=== PATIENT | female | born 1975 | race Caucasian/White ===

== ENCOUNTER 2016-02-13 10:26 | Emergency (ER) | payer OTHER ==
[~2016-02-13] VITALS: Ht 170.2 cm; Wt 84.1 kg
[~2016-02-13 10:26] MED LIST: KLO5T PO; LIP40 PO; LIT150 PO; LIT300 PO; NPR500T PO; PARO20TA5 PO; PRAZ2CAP2 PO; QUET100T PO
[2016-02-13 10:30] VITALS: BP 104/104; PULSE 113; RESP 16; O2SAT 93
--- NOTE | 2016-02-13 11:01 | ED.REPORT ---
HPI-URI / Cough / Cold Date of Service Feb 13, 2016 ED Provider: Nohemi Noland History of Present Illness: sick for 3 days. body aches, hot and cold. kids are positive for influenza last week. subha is primary care staying in car. Nursing Notes Stated Complaint: FLU SYMPTOMS Chief Complaint: FLU/Cold Symptoms Nursing Notes Reviewed: Yes Allergies: Coded Allergies: Penicillins (Verified Allergy, Severe, Anaphylaxis, 07/23/15) codeine (Verified Allergy, Severe, Rash, 07/23/15) 05/06/14 -PATIENT RECEIVED DILAUDID X MANY DOSES iodine (Verified Allergy, Unknown, 12/26/15) miconazole (Verified Allergy, Unknown, Hives, 07/23/15) trazodone (Verified Allergy, Unknown, 07/23/15) Scheduled Atorvastatin (Lipitor) 40 Mg Tablet 40 MG PO HS Clonazepam (Clonazepam) 0.5 Mg Tab 0.5 MG PO BID [place] Carbonate ([place] Carbonate) 300 Mg Cap 900 MG PO HS [place] Carbonate ([place] Carbonate) 150 Mg Capsule 150 MG PO BID Paroxetine (Paroxetine) 20 Mg Tablet 20 MG PO HS Prazosin (Prazosin) 2 Mg Capsule 2 MG PO HS Quetiapine Fumarate (Seroquel) 100 Mg Tablet 100 MG PO HS Quetiapine Fumarate (Seroquel) 100 Mg Tablet 100 MG PO HS Scheduled PRN Naproxen (Naproxen) 500 Mg Tab 500 MG PO BID PRN PRN For Pain General Time Seen by MD: 11:00 Chief Complaint Cough, non-productive, Fever Hx Obtained From: Patient Onset Occurred: 4 days ago Symptom Duration: Since onset Past Medical History Past Medical History Notes: [facility] [place] Past Medical History Bipolar disorder. History of MRSA abscesses. Nicotine dependence, active with smoking cigarettes. Morbid obesity. sepsis endocarditis Reports: Migraines Past Surgical History saliva gland removal Adenoidectomy Reports: Cholecystectomy, Tonsillectomy Smoking History Current Every Day Smoker Social History Homeless Alcohol Use: Denies alcohol use Drug Use: IV drugs, Meth Ambulatory Status Independent Review of Systems Basic Review of Systems Cardiovascular: No chest pain, No dyspnea on exertion, No orthopnea, No parox noct dyspnea, No palpitations : No dysuria, No frequency Musculoskeletal: No extremity swelling, No extremity pain, Full range of motion , Joints NL Hematologic: No bleeding, No bruising Endocrine: No cold intolerance, No heat intolerance, No weight gain, No weight loss Psychiatric: Normal thought content Physical Exam Initial Vital Signs Vital Signs (First) Date Time Temp Pulse Resp B/P Pulse Ox O2 Delivery O2 Flow Rate FiO2 02/13/16 10:30 38.3 113 16 104/104 93 Initial VS: Reviewed, Vital signs abnormal Head / Eyes: Atraumatic, Normocephalic, PERRL Neck: Supple, Non-tender, Full range of motion Cardiovascular: Regular rate & rhythm, Heart sounds normal, Intact distal pulses Abdomen / GI: Soft, Non-tender, No guarding, No rebound, No distention Back: No CVA tenderness Lymphatic: No lymphadenopathy Extremities: Vascular intact, Neuro intact, No swelling, No tenderness Skin: Warm, Dry, No cyanosis Neurologic: Alert, Oriented, Nonfocal Psychiatric: Mood/affect normal, Behavior normal, Normal thought content General/Constitutional: Awake, Alert, No acute distress, Well appearing, Well developed, Well hydrated ENT: Atraumatic, Airway patent, Mucous membranes moist Nose: Positive: Rhinorrhea Respiratory / Chest: Atraumatic, Breath sounds NL, Breath sounds = bilat, No respiratory distress, No rales, No rhonchi, No wheezing Head / Eyes: Atraumatic, Normocephalic, PERRL, EOMI Cardiovascular: Heart rate NL, Regular rhythm, Heart sounds NL, No gallop Abdomen: Atraumatic, Soft, Non-tender Interpretation & Diagnostics Lab Results Interpretation Lab Results Interpretation: positive influenza A X-Ray Chest Interpretation Chest Xray Interpretation: TECHNIQUE: 2 views of the chest were acquired. COMPARISON: [facility], CR, XR CHEST 2V AP/PA AND LAT, 01/24/2016, 1:11 PM. [facility], CR, CHEST 2VW, 05/20/2014, 16:13. FINDINGS: Surgical changes and devices: Cholecystectomy clips. Lungs and pleura: There is a minimal appearance of interstitial opacities within the bases. Mediastinum: Mediastinal contours are normal. Heart size is normal. Bones and chest wall: No suspicious bony abnormalities. Soft tissues appear unremarkable. IMPRESSION: Minimal appearance of bibasilar interstitial opacities. This could represent atelectasis or developing airspace disease such as pneumonia. Discharge & Departure Impression: Primary Impression: Fever Encounter type: initial encounter Additional Impressions: Cough Influenza Disposition: Home Patient Instructions: Fever in Adults (ED) Additional Instructions: The chest x-ray shows that there might be a possible pneumonia. It may be viral or bacterial. You are being started on antibiotics. Your influenza A is positive. You have care home information, the cold weather care home is open this evening.. You are seeing Kenyetta Quach tomorrow. She can decide to refill or not the rest of your medication. Today your paroxetine and prazosin are being refilled. Use tessalon perles for the cough. Referrals: Azeem Caro MD (PCP) EDSupervising Provider for APC: Riki Rosenberg DO copies to: Azeem Caro MD, Sue ARNP Feb 13, 2016 11:01
[2016-02-13] MEDS ORDERED: Ketorolac 30 mg/mL 2 mL Inj IM ONE (11:10)
--- NOTE | 2016-02-13 11:54 | DRSVH ---
PROCEDURE: X-RAY CHEST, TWO VIEWS ([id number]) INDICATIONS: cough fever TECHNIQUE: 2 views of the chest were acquired. COMPARISON: [facility], CR, XR CHEST 2V AP/PA AND LAT, 01/24/2016, 1:11 PM. [facility], CR, CHEST 2VW, 05/20/2014, 16:13. FINDINGS: Surgical changes and devices: Cholecystectomy clips. Lungs and pleura: There is a minimal appearance of interstitial opacities within the bases. Mediastinum: Mediastinal contours are normal. Heart size is normal. Bones and chest wall: No suspicious bony abnormalities. Soft tissues appear unremarkable. IMPRESSION: Minimal appearance of bibasilar interstitial opacities. This could represent atelectasis or developing airspace disease such as pneumonia. Dictated by: Tata Conti M.D. on 02/13/2016 at 11:52 Approved by: Tata Conti M.D. on 02/13/2016 at 11:52
[2016-05-01] MEDS ORDERED: TRAM50TA2 PO (12:44)
[2016-05-01] MEDS ORDERED: PRAZ1CAP2 PO (12:44)
[2016-05-01] MEDS ORDERED: QUET300T PO (12:44)
[2016-05-01] MEDS ORDERED: LIT150 PO (12:44)
[2016-05-01] MEDS ORDERED: BUSP10TA2 PO (12:44)
[2016-05-01] MEDS ORDERED: PIRO20CA2 PO (12:44)
[2016-05-01] MEDS ORDERED: PARO25TA17 PO (12:44)
[2016-05-01] MEDS ORDERED: PHEN-777 PO (12:44)
== END 2016-02-13 12:20 | disposition home or self-care (01) ==
LOC: SED 10:26
DX: J11.1 Influenza due to unidentified influenza virus with other respiratory manifestations (principal); R05 Cough; F31.9 Bipolar disorder, unspecified; F17.200 Nicotine dependence, unspecified, uncomplicated; Z59.0 Homelessness; Z88.0 Allergy status to penicillin; Z88.5 Allergy status to narcotic agent; Z88.8 Allergy status to other drugs, medicaments and biological substances
CPT/HCPCS: 71020; 87804; 96372; 99284; J1885

== ENCOUNTER 2016-03-12 19:40 | Emergency (ER) | payer OTHER ==
[~2016-03-12] VITALS: Ht 170.2 cm; Wt 89.1 kg
[2016-03-12 19:55] VITALS: BP 136/88; PULSE 104; RESP 18; O2SAT 99
--- NOTE | 2016-03-12 21:57 | ED.REPORT ---
HPI-General Illness Date of Service Mar 12, 2016 ED Provider: Joshua Caal MD Pt is a 40 y.o. female with a hx of MRSA abscesses who presents to the ED c/o multiple abscesses to her left axilla and left thigh onset 3 weeks ago. She reports associated nausea and fever (subjective). She states that she has a hx of abscesses and typically has them incised and drained. Nursing Notes Stated Complaint: MULTIPLE ABSCESSES Chief Complaint: Skin Rash/Abscess Nursing Notes Reviewed: Yes Allergies: Coded Allergies: Penicillins (Verified Allergy, Severe, Anaphylaxis, 03/12/16) codeine (Verified Allergy, Severe, Rash, 03/12/16) 05/06/14 -PATIENT RECEIVED DILAUDID X MANY DOSES iodine (Verified Allergy, Unknown, 03/12/16) miconazole (Verified Allergy, Unknown, Hives, 03/12/16) trazodone (Verified Allergy, Unknown, 03/12/16) Scheduled Atorvastatin (Lipitor) 40 Mg Tablet 40 MG PO HS Clindamycin (Clindamycin) 300 Mg Capsule 300 MG PO TID Clonazepam (Clonazepam) 0.5 Mg Tab 0.5 MG PO BID [place] Carbonate ([place] Carbonate) 300 Mg Cap 900 MG PO HS [place] Carbonate ([place] Carbonate) 150 Mg Capsule 150 MG PO BID Paroxetine (Paroxetine) 20 Mg Tablet 20 MG PO HS Prazosin (Prazosin) 2 Mg Capsule 2 MG PO HS Quetiapine Fumarate (Seroquel) 100 Mg Tablet 100 MG PO HS Quetiapine Fumarate (Seroquel) 100 Mg Tablet 100 MG PO HS Scheduled PRN Naproxen (Naproxen) 500 Mg Tab 500 MG PO BID PRN PRN For Pain General Time Seen by MD: 21:57 Chief Complaint Other (Abscesses) Hx Obtained From: Patient Arrived By: Walk-in Sudden in Onset?: No Onset Occurred: More than a week ago... (3 weeks) Symptom Duration: Since onset Location: : Shoulder left: Thigh left Quality: Painful Severity: Current: Severe Similar Sx Previous: Yes Past Medical History Past Medical History Notes: [facility] Past Medical History Bipolar disorder. History of MRSA abscesses. Nicotine dependence, active with smoking cigarettes. Morbid obesity. sepsis endocarditis Reports: Depression, Migraines Past Surgical History saliva gland removal Adenoidectomy Reports: Cholecystectomy, Hysterectomy, Tonsillectomy Smoking History Current Every Day Smoker Social History Homeless Alcohol Use: Denies alcohol use Drug Use: In recovery, IV drugs, Meth Ambulatory Status Independent Review of Systems Abscesses Full Review of Systems Constitutional: Reports: Fever (Subjective) GI: Reports: Nausea Complete sys rev & neg: except as marked. Physical Exam Vital Signs Vital Signs Date Time Temp Pulse Resp B/P Pulse Ox O2 Delivery O2 Flow Rate FiO2 03/12/16 23:55 36.8 78 17 129/68 99 Room Air 03/12/16 19:55 36.3 104 18 136/88 99 Room Air Initial VS: Reviewed Head / Eyes: Atraumatic, Normocephalic Abdomen / GI: No distention Extremities: Vascular intact, Neuro intact Neurologic: Alert, Oriented, Nonfocal Psychiatric: Mood/affect normal, Behavior normal, Normal thought content General/Constitutional: Awake, Alert, Well appearing, Well developed, Well hydrated, Well nourished, Not toxic appearing Respiratory / Chest: Atraumatic, Breath sounds NL, No respiratory distress Cardiovascular: Regular rhythm, Heart sounds NL, Peripheral circulation NL Heart Rate / Rhythm: Positive: Tachycardia Skin: Warm, Dry Abscess Notes: Multiple, 6, abscesses of varying sizes to left axilla. 2 more prominent abscesses, one draining presently. 1 small abscess to left gluteus minimus, posterior to vagina. Abscess #1 Location/Condition: Positive: Axilla L... (Multiple abscesses, tender) Abscess #2 Location/Condition: Positive: Buttock L... (Tender) Procedures Incision & Drainage Abscess I & D Abscess: Adaptive Physical Education Specialist present Time: 23:13 Procedure Performed by: ED physician Consent / Setup / Site Prep: Informed consent provided, Consent from patient , Time-out performed, Hand hygiene observed, Stand sterile technique, Standard surgical scrub, Sterile drapes applied Location of Abscess: 2 left axillary abscesses 1 left gluteus minumus anterior and lateral to rectum T incision made in each abscess Local Anesthesia: Lidocaine w epi 1% Incised Abscess with Scalpel: #11 Irrigation: Yes, Copious Post-Procedure / Complications: Dressing applied, No complications, Condition improved, Tolerated procedure well, Patient stable Re-Eval/Medical Decision Med Decision/Clinical Course Multiple skin abscesses in a lady with hidradenitis suppurativa. Three different lesions were incised and drained, first on the left buttock, and then two in the left axilla. Tolerated well. Dressed in bacitracin dressings and discharged home for hot soaks. Clindamycin for ten days. Source of Hx: Old records Time of Eval: 23:13 Re-Evaluation/Progress Note: Procedure performed with special education preschool teacher present. Discussed plan for discharge, pt understands and agrees with plan. Counseled Regarding: Diagnosis, Lab results, Need for follow-up, When/why to return to ED Discharge & Departure Shift Change Sign-Out Response to Therapy: Improved Primary Impression: Abscess Additional Impression: Hidradenitis suppurativa Disposition: Home Discharge Condition All VS Reviewed: Yes Condition: Stable Additional Instructions: Follow-up at surgical office for consideration of definitive surgery to reduce the abscesses in your armpits. Hot shower or soak twice daily for armpits and buttock. Cleanse after a bowel movement with a diaper wipe such as Pampers "sensitive" wipes. Clindamycin three times daily Follow-up with your doctor in the office. Referrals: Azeem Caro MD (PCP) [employer] Att[facility] Portions of this note were transcribed by Isabel Limon. I, Dr. Caal personally performed the history, physical exam and medical decision-making; I reviewed and confirmed the accuracy of the information in the transcribed note. Signed by: David Russo, 03/12/16 and [id number]. copies to: Azeem Caro MD, Christopher W MD Mar 12, 2016 21:57 ISABEL LIMON Mar 12, 2016 22:10
[2016-03-12] MEDS ORDERED: CLIN-78 PO (23:39)
[2016-03-12 23:55] VITALS: BP 129/68; PULSE 78; RESP 17; O2SAT 99
[2016-05-01] MEDS ORDERED: LIT150 PO (12:44)
[2016-05-01] MEDS ORDERED: PHEN-777 PO (12:44)
[2016-05-01] MEDS ORDERED: BUSP10TA2 PO (12:44)
[2016-05-01] MEDS ORDERED: PIRO20CA2 PO (12:44)
[2016-05-01] MEDS ORDERED: QUET300T PO (12:44)
[2016-05-01] MEDS ORDERED: PRAZ1CAP2 PO (12:44)
[2016-05-01] MEDS ORDERED: TRAM50TA2 PO (12:44)
[2016-05-01] MEDS ORDERED: PARO25TA17 PO (12:44)
== END 2016-03-12 23:56 | disposition home or self-care (01) ==
LOC: SED 19:40
DX: L02.412 Cutaneous abscess of left axilla (principal); L02.31 Cutaneous abscess of buttock; L02.416 Cutaneous abscess of left lower limb; L73.2 Hidradenitis suppurativa; F31.9 Bipolar disorder, unspecified; F17.200 Nicotine dependence, unspecified, uncomplicated; Z59.0 Homelessness; Z88.0 Allergy status to penicillin; Z88.5 Allergy status to narcotic agent; Z88.8 Allergy status to other drugs, medicaments and biological substances

== ENCOUNTER 2016-04-07 15:07 | Emergency (ER) | payer OTHER ==
[~2016-04-07] VITALS: Ht 170.2 cm; Wt 99.5 kg
[~2016-04-07 15:07] MED LIST changes: +CLIN-78 PO
[2016-04-07 15:28] VITALS: BP 140/96; PULSE 92; RESP 19
--- NOTE | 2016-04-07 17:31 | ED.REPORT ---
HPI-Rash / Abscess Date of Service Apr 07, 2016 ED Provider: Nohemi Noland History of Present Illness: tripped on soiled linen hamper and hurt left great toe. Also requesting pain control for ongoing rash. Nursing Notes Stated Complaint: LEFT ABSCESS Chief Complaint: Skin Rash/Abscess Nursing Notes Reviewed: Yes Allergies: Coded Allergies: Penicillins (Verified Allergy, Severe, Anaphylaxis, 04/07/16) codeine (Verified Allergy, Severe, Rash, 04/07/16) 05/06/14 -PATIENT RECEIVED DILAUDID X MANY DOSES iodine (Verified Allergy, Unknown, 04/07/16) miconazole (Verified Allergy, Unknown, Hives, 04/07/16) trazodone (Verified Allergy, Unknown, 04/07/16) Scheduled Atorvastatin (Lipitor) 40 Mg Tablet 40 MG PO HS Clindamycin (Clindamycin) 300 Mg Capsule 300 MG PO TID Clonazepam (Clonazepam) 0.5 Mg Tab 0.5 MG PO BID [place] Carbonate ([place] Carbonate) 300 Mg Cap 900 MG PO HS [place] Carbonate ([place] Carbonate) 150 Mg Capsule 150 MG PO BID Paroxetine (Paroxetine) 20 Mg Tablet 20 MG PO HS Prazosin (Prazosin) 2 Mg Capsule 2 MG PO HS Quetiapine Fumarate (Seroquel) 100 Mg Tablet 100 MG PO HS Quetiapine Fumarate (Seroquel) 100 Mg Tablet 100 MG PO HS Scheduled PRN Naproxen (Naproxen) 500 Mg Tab 500 MG PO BID PRN PRN For Pain General Time Seen by MD: 17:26 Chief Complaint Abscess, Other (toe pain) Hx Obtained From: Patient Onset Occurred: More than a week ago... (4 weeks) Past Medical History Past Medical History Notes: [facility] Recent start of suboxone 04/07/2016 When asked when she was going to inform of suboxone use "I forgot" Past Medical History Bipolar disorder. History of MRSA abscesses. Nicotine dependence, active with smoking cigarettes. Morbid obesity. sepsis endocarditis Reports: Depression, Migraines Past Surgical History saliva gland removal Adenoidectomy Reports: Cholecystectomy, Hysterectomy, Tonsillectomy Smoking History Current Every Day Smoker Social History Homeless Alcohol Use: Denies alcohol use Drug Use: In recovery, IV drugs, Meth Ambulatory Status Independent Review of Systems Basic Review of Systems : No dysuria Endocrine: No cold intolerance, No heat intolerance, No weight gain, No weight loss Physical Exam Initial Vital Signs Vital Signs (First) Date Time Temp Pulse Resp B/P Pulse Ox O2 Delivery O2 Flow Rate FiO2 04/07/16 15:28 36.4 92 19 140/96 Room Air 04/07/16 18:35 99 Initial VS: Reviewed, Vital signs normal Head / Eyes: Atraumatic, Normocephalic, PERRL ENT: Mucous membranes moist, Conjunctiva normal, No scleral icterus Neck: Supple, Non-tender, Full range of motion Respiratory: Breath sounds normal, Clear to auscultation, No respiratory distress Cardiovascular: Regular rate & rhythm, Heart sounds normal, Intact distal pulses Abdomen / GI: Soft, Non-tender, No guarding, No rebound, No distention Back: No CVA tenderness Lymphatic: No lymphadenopathy Extremities: Vascular intact, Neuro intact, No swelling, No tenderness Neurologic: Alert, Oriented, Nonfocal Psychiatric: Mood/affect normal, Behavior normal, Normal thought content General/Constitutional: Awake, Alert, No acute distress, Well appearing, Well developed, Well hydrated, Well nourished, Cooperative, Not toxic appearing Rash / Lesion Notes: hard lump in left axaillae Respiratory / Chest: Atraumatic, Breath sounds NL, Breath sounds = bilat, No respiratory distress Cardiovascular: Heart rate NL, Regular rhythm, Heart sounds NL, No gallop Interpretation & Diagnostics Lab Results Interpretation Test 04/07/16 17:16 Hold Urine Received (Received) X-Ray Interpretation Xray Interpretation: DICATIONS: caught toe on laundry hamper TECHNIQUE: 3 views of the foot were acquired. COMPARISON: None. FINDINGS: Bones: No fractures or dislocations. No suspicious bony lesions. Soft tissues: No tibiotalar joint effusion. Achilles tendon appears normal. IMPRESSION: No acute bony abnormality. Procedures Incision & Drainage Abscess Time: 18:00 Procedure Performed by: Allied health pract Consent / Setup / Site Prep: Informed consent provided, Consent from patient , Hand hygiene observed, Stand sterile technique Skin Preparation Agent: Betadine Local Anesthesia: Lidocaine 1%, 3cc Incised Abscess with Scalpel: #11 Pus Drained: No purulence Irrigation: 100 cc Post-Procedure / Complications: Dressing applied, No complications, Tolerated procedure well, Patient stable Re-Eval/Medical Decision Med Decision/Clinical Course 40 year old female presents with request for pain control for hirdanetisis suppertative. States lost discharge instruction from 1 month ago. Exam indicates 3 areas in left axaillae area. One opened with no discharge out. Exam is consistent with long standing dx of hirandeitis . No evidence of cellulitis or deep tissue abscess. Discharge & Departure Impression: Primary Impression: Hidradenitis suppurativa Additional Impression: Toe sprain Encounter type: initial encounter Qualified Code: S93.509A - Unspecified sprain of unspecified toe(s), initial encounter Disposition: Home Additional Instructions: The x-ray is negative for bony damage. The site of the swelling in your left axilla area was opened with no discharge out. Please call general surgery for definitive treatment of this condition. Dr. Ingram's number is provided for you. You are being provided a prescription for clindamycin. Please get it filled. I am glad you are on suboxone! Please continue to work with [facility]. Referrals: Tara Khan (PCP) Pollo Ingram MD EDSupervising Provider for APC: Joshua Caal MD copies to: Pollo Ingram MD; Tara Khan Sue ARNP Apr 07, 2016 17:31
[2016-04-07] MEDS ORDERED: Ketorolac 30 mg/mL 2 mL Inj IM ONE (17:50)
[2016-04-07 18:35] VITALS: BP 131/69; PULSE 72; RESP 19; O2SAT 99
--- NOTE | 2016-04-07 18:44 | DRSVH ---
PROCEDURE: X-RAY LEFT FOOT COMPLETE, MINIMUM THREE VIEWS ([id number]) INDICATIONS: caught toe on laundry hamper TECHNIQUE: 3 views of the foot were acquired. COMPARISON: None. FINDINGS: Bones: No fractures or dislocations. No suspicious bony lesions. Soft tissues: No tibiotalar joint effusion. Achilles tendon appears normal. IMPRESSION: No acute bony abnormality. Dictated by: Herrera López M.D. on 04/07/2016 at 18:42 Approved by: Herrera López M.D. on 04/07/2016 at 18:42
--- NOTE | 2016-04-07 18:54 | NUR ---
ED DIGITAL PHOTO PRINTER Note D/A: Pt presented to the ED for treatment of an abscess. Pt was medically cleared and discharged. DIGITAL PHOTO PRINTER was requested to arrange transportation home for Pt. P: DIGITAL PHOTO PRINTER called [place] and was informed that Pt was eligible for Medicaid transportation. DIGITAL PHOTO PRINTER scheduled a time for Pt to be picked up and taken home. OLEKSANDR Baxter, AAC
[2016-05-01] MEDS ORDERED: QUET300T PO (12:44)
[2016-05-01] MEDS ORDERED: LIT150 PO (12:44)
[2016-05-01] MEDS ORDERED: PRAZ1CAP2 PO (12:44)
[2016-05-01] MEDS ORDERED: TRAM50TA2 PO (12:44)
[2016-05-01] MEDS ORDERED: BUSP10TA2 PO (12:44)
[2016-05-01] MEDS ORDERED: PIRO20CA2 PO (12:44)
[2016-05-01] MEDS ORDERED: PARO25TA17 PO (12:44)
[2016-05-01] MEDS ORDERED: PHEN-777 PO (12:44)
== END 2016-04-07 18:35 | disposition home or self-care (01) ==
LOC: SED 15:07
DX: L73.2 Hidradenitis suppurativa (principal); S93.502A Unspecified sprain of left great toe, initial encounter; W18.49XA Other slipping, tripping and stumbling without falling, initial encounter; Y92.9 Unspecified place or not applicable; Y93.89 Activity, other specified; Y99.8 Other external cause status; F17.200 Nicotine dependence, unspecified, uncomplicated; E66.01 Morbid (severe) obesity due to excess calories; Z86.14 Personal history of Methicillin resistant Staphylococcus aureus infection; Z68.34 Body mass index [BMI] 34.0-34.9, adult; Z59.0 Homelessness; Z88.0 Allergy status to penicillin; Z88.5 Allergy status to narcotic agent; Z91.041 Radiographic dye allergy status; Z88.3 Allergy status to other anti-infective agents; Z88.8 Allergy status to other drugs, medicaments and biological substances
CPT/HCPCS: 10060; 73630; 96372; 99284; J1885

== ENCOUNTER 2016-05-02 06:49 | Day surgery (SDC) | payer OTHER ==
[2016-05-02] VITALS (12 sets, daily range): BP systolic 93–114; BP diastolic 53–74; PULSE 60–81; RESP 12–17; O2SAT 94–100
[~2016-05-02] VITALS: Ht 170.2 cm; Wt 82.5 kg
[~2016-05-02 06:49] MED LIST changes: +Albuterol 2.5 mg/3 mL Inhalation Solution NEB PRN; +BUSP10TA2 PO; -CLIN-78 PO; +CeFAZolin Inj 2 GM in IV Premix 1 EACH IV ONE; -KLO5T PO; -LIP40 PO; -LIT300 PO; +Lactated Ringer's 1,000 ML IV SCH; -NPR500T PO; -PARO20TA5 PO; +PARO25TA17 PO; +PHEN-777 PO; +PIRO20CA2 PO; +PRAZ1CAP2 PO; -PRAZ2CAP2 PO; -QUET100T PO; +QUET300T PO; +TRAM50TA2 PO
[2016-05-02] MEDS ORDERED: EPHEDrine/NS 5 mg/mL 5 mL Syringe ONE (06:50)
[2016-05-02] MEDS ORDERED: Glycopyrrolate 0.2 MG/ML 1mL Inj ONE (06:50)
[2016-05-02] MEDS ORDERED: Lidocaine PF 1% 30 mL Inj ONE (06:50)
[2016-05-02] MEDS ORDERED: Propofol 10,000 mCg/mL 20 mL Inj ONE (06:50)
[2016-05-02] MEDS ORDERED: Dexamethasone 4 mg/mL Inj ONE (06:50)
[2016-05-02] MEDS ORDERED: Ondansetron 2 mg/mL 2 mL Inj ONE (06:50)
[2016-05-02] MEDS ORDERED: fentaNYL-PF 50 mCg/mL 2 mL Inj ONE (06:50)
[2016-05-02] MEDS ORDERED: Lactated Ringer's 1,000 ML IV ONE (09:15)
[2016-05-02] MEDS ORDERED: HYDROmorphone 0.5 mg/0.5 mL iSecure Syringe IVPUSH PRN (12:25)
--- NOTE | 2016-05-02 12:37 | PCM.HPANE ---
Patient Data Date of Service: May 02, 2016 Surgeon Admitting Provider: Attending Provider:Pollo Ingram MD Primary Care Physician:Daniel Bonilla MD Other Provider:Jessica Escalante Anesthesia Reason for Visit Hidradenitis Ht/WT & BMI Height (Feet): 5 Height (Inches): 7.00 Weight (Kilograms): 82.5 Body Mass Index 28.00 Allergies Coded Allergies: Penicillins (Verified Allergy, Severe, Anaphylaxis, 04/07/16) codeine (Verified Allergy, Severe, Rash, 04/07/16) 05/06/14 -PATIENT RECEIVED DILAUDID X MANY DOSES iodine (Verified Allergy, Unknown, 04/07/16) miconazole (Verified Allergy, Unknown, Hives, 04/07/16) trazodone (Verified Allergy, Unknown, 04/07/16) Past Anesthesia History Anesthesia History: Denies:: Anesthesia Reactions Diabetes History Hx Diabetes?: No MRSA MRSA: Yes (several times) Medications Home Meds Incl Beta Eulalio: No Reported Medications Tramadol 50 Mg Efcfis39 Mg PO Q4H PRN For Pain Ref 0 05/01/16 Quetiapine Fumarate (Seroquel)300 Mg Lizggx047 Mg PO HS Ref 0 05/01/16 Prazosin 1 Mg Capsule1 Mg PO HS 05/01/16 Piroxicam 20 Mg Ptrizon07 Mg PO DAILY 05/01/16 Phenazopyridine 200 Mg Pvewfv930 Mg PO TID Ref 0 05/01/16 Paroxetine HCl (Paroxetine ER)25 Mg Tab.er.24h25 Mg PO DAILY 05/01/16 [place] Carbonate 150 Mg Wufxkkz342 Mg PO TID 05/01/16 Buspirone 10 Mg Frkxes76 Mg PO DAILY Ref 0 05/01/16 Discontinued Reported Medications Clonazepam 0.5 Mg Tab0.5 Mg PO BID For Anxiety 05/06/14 Quetiapine Fumarate (Seroquel)100 Mg Czggpw357 Mg PO HS 05/06/14 Atorvastatin (Lipitor)40 Mg Asgkka45 Mg PO HS 07/25/13 Paroxetine 20 Mg Wszuhl68 Mg PO HS 07/25/13 Prazosin 2 Mg Capsule2 Mg PO HS 07/25/13 [place] Carbonate 300 Mg Gbn270 Mg PO HS 07/25/13 Discontinued Scripts Clindamycin 300 Mg Qsaaetl546 Mg PO TID #30 CAPSULE Prov:Joshua Caal MD 03/12/16 [place] Carbonate 150 Mg Pekwuvv573 Mg PO BID #14 CAPSULE Prov:Andrez Al MD 10/07/15 Quetiapine Fumarate (Seroquel)100 Mg Hwymjq300 Mg PO HS #7 TABLET Ref 0 Prov:Andrez Al MD 10/07/15 Naproxen 500 Mg Ulf580 Mg PO BID PRN For Pain #20 TABLET Prov:WhitleyColinTataRiki ritter 07/08/15 History History of ENT Problems?: Yes HEENT History: Denies:: Cataracts Dysphagia Sinus Problem Hx of Heart Problems?: Yes Cardiovascular History: Positive for:: Edema Denies:: Cardiac Surgery Chest Pain Congestive Heart Failure Heart Murmur Hypertension Irregular Heartbeat Pacemaker Thrombophlebitis Hx of Respiratory Problem?: Yes Respiratory History: Positive for:: Dyspnea (with activity) Pneumonia Denies:: Asthma COPD Chest Surgery Emphysema Hemoptysis Tuberculosis Hx Neurologic Problems?: Yes Neurological History: Positive for:: Headaches (migraines) Denies:: Alzheimer's Disease CVA Dementia Dizziness Parkinson's Disease Seizures Hx of GI Problems?: Yes Gastrointestinal History: Positive for:: Diverticulitis Gastroesphageal Reflux Gastrointestinal Bleeding Heartburn Hepatitis (HEP C hx) Rectal Bleeding Denies:: Hiatal Hernia Hx of Problems?: Yes Genitourinary History: Positive for:: Kidney Stones Urinary Tract Infection Denies:: HX of Hemodialysis HX of Peritoneal Dialysis: No Female Hx: Positive for:: Pelvic Inflammatory Denies:: Currently (urine pg neg) Endometriosis Problems with Breasts? Skin History: Positive for:: History Skin Disorders? (left axillary and left buttock hidradenitis current admission problem) Denies:: Pressure Ulcers Hx Musculoskeletal Problems?: Yes Musculoskeletal History: Positive for:: Back Injury Denies:: Joint Replacement Musculoskeletal Trauma Hx of Psycho/Social Problems?: Yes Psycho Social History: Positive for:: Anxiety Bipolar Disorder Hx Depression Suicide Attempt (x1 in 1995) Hx Surgeries?: Yes (salivary duct removed, tonsils, hysterectomy, adnoids, removed) Hx Any Other Health Problems?: Yes Other History: Positive for:: Hospitalization Denies:: Cancer Endocrine Disease Thyroid Disease History Blood Transfusions: Positive for:: Blood Transfusions Denies:: Blood Transfuse Reaction Hx Diabetes: No Hx Alcohol Use: NoHx Substance Use: No (past hx of meth, clean since 2010) Smoking Status: Current Every Day Smoker Have You Smoked inLast 12 mo: Yes Stop/Bang S-Snoring: Do You Snore Loudly: No T-Tired: feel tired, fatigued: No O-Obsered: Observed not breath: No P-Blood Pressure: treated: No B- Body Mass Index > 35 kg/m2: No A- Age over 50: No N- Neck Large Circumference: No G- Gender Male: No URBANO Total Score: 0 URBANO Risk Assessment: Low Risk, <3 Yes Risk Assessment Category Category 1A: Patient has history of documented sleep apnea, and HAS NOT received any narcotic, sedative or anesthesia administration during this stay. Category 1B: Patient has history of documented sleep apnea, and HAS received any narcotic , sedative or anesthesia administration during this stay Category 2: Patient has SUSPECTED Obstructive Sleep Apnea, and HAS received any narcotic , sedative or anesthesia administration during this stay. Category 3: Patient has SUSPECTED Obstructive Sleep Apnea and HAS NOT received narcotic, sedative or anesthesia administration during this stay. Category 4: Outpatient in Procedural Areas with known sleep apnea or who screen positive for High Risk via the STOP/BANG questionnaire. Exam Exam Vital Signs Vital Signs Date Time Temp Pulse Resp B/P Pulse Ox O2 Delivery O2 Flow Rate FiO2 05/02/16 09:42 79 12 100/60 98 Room Air 05/02/16 09:20 35 74 14 107/63 100 Room Air General Appearance: Alert, Oriented X3, Cooperative, No Acute Distress HEENT/AIRWAY: MP 2, Neck Movement (from), Mouth Opening (3 fb), Other (tmd 3 fb ) Lungs: Clear to Auscultation, Normal Air Movement Heart: Exam Unremarkable, Regular Rate/Rhythm, No Murmurs/Rubs/Gallops Meds/Labs/Diagnostics Admission Meds Current Medications Lactated Ringer's (Lr) 1,000 ml @ ud STK-MED ONCE IV Last administered on 05/02t 09:15; Start 05/02/16 at 09:15; Stop 05/02/16 at 09:19; Status DC Plan Impression Patient chart reviewed, patient interviewed and anesthestic plan with risks, benefits, and alternatives discussed, and informed consent obtained. NPO Status: 05/01@1400, water @ 0630 ASA Physical Status: ASA2 Mod Systemic Disease Anesthetic Plan: GA Bene/Risks/Altern/Consents: Yes HP Complete Prior to Induction: Yes Shamir Cronin MD May 02, 2016 12:37
[2016-05-02] MEDS ORDERED: HYDROmorphone 1 mg/mL Inj ONE (12:44)
[2016-05-02] MEDS ORDERED: Lactated Ringer's 1,000 ML IV SCH (13:51)
[2016-05-02] MEDS ORDERED: Lactated Ringer's 500 ML IV PRN (13:51)
[2016-05-02] MEDS ORDERED: Ondansetron 2 mg/mL 2 mL Inj IVPUSH PRN (13:55)
[2016-05-02] MEDS ORDERED: EPHEDrine Sulfate 50 mg/mL Inj IVPUSH PRN (13:55)
[2016-05-02] MEDS ORDERED: Phenylephrine 10,000 mCg/mL Inj IVPUSH PRN (13:55)
[2016-05-02] MEDS ORDERED: hydrALAZINE 20 mg/mL Inj IVPUSH PRN (13:55)
[2016-05-02] MEDS ORDERED: EPHEDrine Sulfate 50 mg/mL Inj IM PRN (13:55)
[2016-05-02] MEDS ORDERED: Albuterol 2.5 mg/3 mL Inhalation Solution NEB PRN (13:55)
[2016-05-02] MEDS ORDERED: fentaNYL-PF 50 mCg/mL 2 mL Inj IVPUSH PRN (13:55)
[2016-05-02] MEDS ORDERED: Atropine 0.4 mg/mL Inj IVPUSH PRN (13:55)
[2016-05-02] MEDS ORDERED: HYDROmorphone 1 mg/mL Inj IVPUSH PRN (13:55)
[2016-05-02] MEDS ORDERED: Bupivacaine 0.5%/EPI 50 mL Inj INFILTRATE ONE (14:27)
[2016-05-02] MEDS ORDERED: oxyCODONE-Acetamin 5-325 mg Tablet PO PRN (15:50)
--- NOTE | 2016-05-02 19:44 | PCM.ANEP1 ---
Post Anesthesia Phase 1 PACU Phase 1 Assessment Date of Service: May 02, 2016 Vital Signs Vital Signs Date Time Temp Pulse Resp B/P Pulse Ox O2 Delivery O2 Flow Rate FiO2 05/02/16 17:21 60 16 93/65 96 Room Air 05/02/16 17:17 36.3 81 16 103/68 98 Room Air 05/02/16 16:55 67 15 102/67 94 Room Air 05/02/16 16:40 68 13 107/65 94 Room Air 05/02/16 16:30 70 16 105/68 96 Room Air 05/02/16 16:15 73 17 105/53 95 Room Air 05/02/16 16:00 71 14 112/74 100 Simple Mask 10 05/02/16 15:55 72 13 114/73 100 Simple Mask 10 05/02/16 15:50 69 17 113/69 100 Simple Mask 10 05/02/16 15:45 36.5 67 14 111/68 100 Simple Mask 10 Anesthetic Administered: GA Level of Alertness: Sleepy, easy to arouse LOMBARDI's with Equal Strength: Yes Pain: No Nausea or Vomiting: No Oxygen Delivery: Room Air Lungs: Clear to Auscultation, Normal Air Movement Dermatome Level: Full Sensation Shamir Cronin MD May 02, 2016 19:43
--- NOTE | 2016-05-02 19:44 | PCM.ANEP2 ---
Post Anesthesia Evaluation ASA/CMS Post Anesthesia Date of Service: May 02, 2016 VS in Patient's Normal Range?: Yes Resp Stable; Airway Patent?: Yes CV Function & Hydration Stable: Yes Mental Status Recovered?: Yes Pain control Satisfactory?: Yes N/V Control Satisfactory?: Yes Shamir Cronin MD May 02, 2016 19:44
--- NOTE | 2016-05-03 02:24 | OP ---
[address] [address] OPERATIVE REPORT PATIENT: POPPY BONILLA : 1975 MR#: [id number] ADMIT: 05/02/2016 JOB ID: [id number] DATE OF SURGERY: 05/02/2016 SURGEON: Pollo Ingram MD. COMPUTER ANALYST SUPERVISOR: Dr. Scott, resident 1. Ciara Scott DO, resident. ANESTHESIA: General. PREOPERATIVE DIAGNOSIS(ES): 1. Left axillary hidradenitis x2. 2. Left medial buttocks hidradenitis x1. 3. Pilonidal cyst. POSTOPERATIVE DIAGNOSIS(ES): 1. Left axillary hidradenitis x2. 2. Left medial buttocks hidradenitis x1. 3. Pilonidal cyst. PRINCIPAL PROCEDURE: 1. Excision of left axillary hidradenitis x2. 2. Excision of left medial buttocks hidradenitis x1. 3. Excision of pilonidal cyst. INDICATION FOR PROCEDURE: The patient is a 40-year-old female with recurrent symptomatic hidradenitis and pilonidal cyst. PRINCIPAL FINDING: Successful excision. All lesions were excised and sent to Pathology. Wounds were all closed using nylon sutures. PROCEDURE COURSE: The patient was brought to the operating table and was provided with general anesthesia. The patient was given IV antibiotics and SCDs. A time-out was performed. We started with the left axillary and left medial buttocks lesions. All areas were prepped and draped in the usual sterile fashion. Next, the smaller of the left axillary hidradenitis was injected with local anesthesia, and using elliptical incisions the hydradenitis and the overlying skin was then excised. Hemostasis was controlled. The skin defect was then reapproximated using a running nylon suture. The larger left axillary hidradenitis lesion was also marked by pen, and after injection of local anesthetic elliptical incisions were made to include the overlying skin, and the hidradenitis and subcu were then excised and sent to Pathology. Hemostasis was controlled using cautery. Next, the subcutaneous tissue was then reapproximated using interrupted Vicryl sutures and the skin was then closed using a running nylon suture. The smaller axillary incision was 2 cm and the larger axillary incision was 4 cm. Next, we turned our attention to the left medial buttocks lesion. Again, local anesthetic was injected and elliptical incisions were made to include the skin. The specimen was excised and sent to Pathology. The skin was closed using a running nylon suture. The incision here measured 2 cm in length. Next, patient was then flipped onto a prone position exposing her tailbone region. The area was prepped and draped in the usual sterile fashion. Next, a midline incision was made directly over her palpable symptom and the subcutaneous tissue was entered using electrocautery. Dissection into subcu space did appear to show a left-sided subcutaneous cyst and the entire subcu tissue was excised and sent to Pathology. Palpation within the wound did not show any other lesions. Next, the subcu and dermis layer was then reapproximated using interrupted Vicryl suture and the skin was closed using interrupted nylon sutures. This pilonidal incision measured 3 cm in length. A sterile dressing was then placed over each wound. By the end of procedure, needle counts and sponge counts were correct. The patient was then extubated and taken to the recovery room in stable, satisfactory condition.
--- NOTE | 2016-05-06 15:14 | PATH ---
SURGICAL PATHOLOGY Attending Physician:Pollo Ingram M.D. CASE STATUS: Signed Out PATIENT NAME: POPPY BONILLA PID: [id number] : 1975 DATE COLLECTED:05/02/2016 00:00 SPECIMEN: 1: Skin, biopsy 2: Skin, biopsy 3: Skin, biopsy 4: Pilonidal Cyst CLINICAL HISTORY: HIDRADENITIS 1). LEFT AXILLA HIDRA 2). LEFT AXILLA HIDRA (BIGGER) 3). LEFT MEDIAL BUTTOCK HIDRA 4). PILONIDAL TISSUE FINAL DIAGNOSIS: 1.LEFT AXILLA HIDRA: SKIN EXCISIONAL BIOPSY WITH CHRONIC AND ACTIVE INFLAMMATION, CONSISTENT WITH HIDRADENITIS. NO EVIDENCE OF MALIGNANCY: 2.LEFT AXILLA HIDRA (BIGGER): SKIN AND SUBCUTANEOUS TISSUE WITH FIBROSIS AND PATCHY CHRONIC ACTIVE INFLAMMATION, CONSISTENT WITH HIDRADENITIS. NO EVIDENCE OF MALIGNANCY. 3.LEFT MEDIAL BUTTOCK HIDRA: SKIN AND SUBCUTANEOUS TISSUE WITH FIBROSIS AND PATCHY CHRONIC ACTIVE INFLAMMATION. NO EVIDENCE OF MALIGNANCY. 4.PILONIDAL TISSUE: SUBCUTANEOUS TISSUE WITH FIBROSIS. NO GRANULATION TISSUE OR ACTIVE INFLAMMATION IDENTIFIED. NO EVIDENCE OF MALIGNANCY. ICD10 CODE L73.2 GROSS DESCRIPTION: The specimen is received in four formalin filled containers labeled with the patient's name. 1). The specimen is sublabeled "left axilla hidra" and consists of a evans-rapp ovoid piece of skin and tissue which measures 1.0 by a 0.6 x 0.6 CM. The specimen is inked blue, sectioned into 4 pieces and entirely submitted in cassette 1A. 2). The specimen is sublabeled "left axilla hidra (bigger)" and consists of a evans-rapp ellipse of skin and tissue which measures 3.6 x 1.2 x 1.2 CM. Centrally located on the epidermal surface is a 0.3-0.1 CM depressed and rough area the surgical margin is inked blue. 4 congressional representative sections are submitted in cassettes 2A, 2B. 3). The specimen is sublabeled "left medial buttock hidra" and consists of a 1.4 x 0.9 x 0.8 CM brink-rpap rough portion of skin and tissue. Centrally located on the epidermal surface is a 0.3 CM in diameter light brink-rapp rough and slightly hypopigmented area. The surgical margin is inked blue. Sectioned into 4 pieces and entirely submitted in cassette 3A. 4). The specimen is sublabeled "pilonidal tissue" and consists of multiple portions of yellow-rapp tube evans-rapp tissue which aggregate to 1.2 x 1.2 x 0.7 CM. The smallest portions are entirely submitted in cassette 4A. The largest piece is inked blue, trisected and entirely submitted in cassette 4B. 05/03/2016 MICRO DESCRIPTION: See diagnosis. ICD-9 CODES: CPT CODES: 1: 05688 2: 08126 3: 55610 4: 41961 Electronically Signed Out Davina Carvalho MD [facility] [address], [place] [address] Technical component performed at [facility], [facility] [address], [place], [address]
== END 2016-05-02 23:59 | disposition home or self-care (01) ==
LOC: SAS 06:49
PROVIDERS: ATTEND Surgery
DX: L73.2 Hidradenitis suppurativa (principal); L05.91 Pilonidal cyst without abscess; E78.00 Pure hypercholesterolemia, unspecified; J45.909 Unspecified asthma, uncomplicated; B19.20 Unspecified viral hepatitis C without hepatic coma; G43.909 Migraine, unspecified, not intractable, without status migrainosus; I25.2 Old myocardial infarction; K21.9 Gastro-esophageal reflux disease without esophagitis; M79.7 Fibromyalgia; R01.1 Cardiac murmur, unspecified; F31.9 Bipolar disorder, unspecified; Z86.14 Personal history of Methicillin resistant Staphylococcus aureus infection
CPT/HCPCS: 11450; 11470; 11771; J0690; J1100; J1170; J2405; J3010; J7120

== ENCOUNTER 2016-05-03 11:00 | Emergency (ER) | payer OTHER ==
[~2016-05-03] VITALS: Ht 171.4 cm; Wt 82.5 kg
[~2016-05-03 11:00] MED LIST changes: -Albuterol 2.5 mg/3 mL Inhalation Solution NEB PRN; -CeFAZolin Inj 2 GM in IV Premix 1 EACH IV ONE; -Lactated Ringer's 1,000 ML IV SCH
[2016-05-03 11:19] VITALS: BP 118/76; PULSE 90; RESP 16; O2SAT 97
--- NOTE | 2016-05-03 11:30 | ED.REPORT ---
HPI-General Illness Date of Service May 03, 2016 ED Provider: Andrez Al MD Pt is a 40 y.o. female who presents to the ED seeking a medication refill of Suboxone. Patient was scheduled to [facility] but was in the operating room yesterday getting cysts drained. She was discharged with Dilaudid and Percocet which she brought to the clinic [facility]) and requested Suboxone instead. She requests refill of Suboxone prescription to cover her through Friday which is her next appointment Nursing Notes Stated Complaint: MEDICATIONS Chief Complaint: General Complaint Nursing Notes Reviewed: Yes Allergies: Coded Allergies: Penicillins (Verified Allergy, Severe, Anaphylaxis, 04/07/16) codeine (Verified Allergy, Severe, Rash, 04/07/16) 05/06/14 -PATIENT RECEIVED DILAUDID X MANY DOSES iodine (Verified Allergy, Unknown, 04/07/16) miconazole (Verified Allergy, Unknown, Hives, 04/07/16) trazodone (Verified Allergy, Unknown, 04/07/16) Scheduled Buspirone (Buspirone) 10 Mg Tablet 10 MG PO DAILY [place] Carbonate ([place] Carbonate) 150 Mg Capsule 300 MG PO TID Paroxetine HCl (Paroxetine ER) 25 Mg Tab.er.24h 25 MG PO DAILY Phenazopyridine (Phenazopyridine) 200 Mg Tablet 200 MG PO TID Piroxicam (Piroxicam) 20 Mg Capsule 20 MG PO DAILY Prazosin (Prazosin) 1 Mg Capsule 1 MG PO HS Quetiapine Fumarate (Seroquel) 300 Mg Tablet 300 MG PO HS Scheduled PRN Tramadol (Tramadol) 50 Mg Tablet 50 MG PO Q4H PRN PRN For Pain General Time Seen by MD: 11:30 Chief Complaint Medication refill Hx Obtained From: Patient Arrived By: Walk-in Sudden in Onset?: Yes Onset Occurred: Yesterday Context of Onset: Ran out of medication Past Medical History Past Medical History Notes: [facility] Recent start of suboxone 04/07/2016 When asked when she was going to inform of suboxone use "I forgot" Past Medical History Bipolar disorder. History of MRSA abscesses. Nicotine dependence, active with smoking cigarettes. Morbid obesity. sepsis endocarditis Reports: Depression, Migraines Past Surgical History saliva gland removal Adenoidectomy Reports: Cholecystectomy, Hysterectomy, Tonsillectomy Smoking History Current Every Day Smoker Social History Homeless Alcohol Use: Denies alcohol use Drug Use: In recovery, IV drugs, Meth Ambulatory Status Independent Review of Systems Full Review of Systems Constitutional: Denies: Chills, Fever GI: Denies: Diarrhea, Melena, Vomiting Complete sys rev & neg: except as marked. Physical Exam Vital Signs Vital Signs Date Time Temp Pulse Resp B/P Pulse Ox O2 Delivery O2 Flow Rate FiO2 05/03/16 13:15 36.8 96 16 154/98 100 Room Air 05/03/16 11:19 36.3 90 16 118/76 97 Room Air Initial VS: Reviewed Abdomen / GI: No distention Extremities: Vascular intact, Neuro intact Skin: Warm, Dry, No cyanosis Neurologic: Alert, Oriented, Nonfocal Psychiatric: Mood/affect normal, Behavior normal, Normal thought content General/Constitutional: Awake, Alert, No acute distress, Well appearing, Well developed, Well hydrated, Well nourished, Not toxic appearing Head / Eyes: Atraumatic, Normocephalic, PERRL Respiratory / Chest: Atraumatic, Breath sounds NL, No respiratory distress Cardiovascular: Heart rate NL, Regular rhythm, Peripheral circulation NL Re-Eval/Medical Decision Med Decision/Clinical Course I contacted Dr. Curtis and approved the refill through her. Discharge & Departure Primary Impression: Opioid dependence Substance use status: uncomplicated Qualified Code: F11.20 - Opioid dependence, uncomplicated Disposition: Home Discharge Condition All VS Reviewed: Yes Condition: No Change Additional Instructions: We called the clinic and confirmed that you had in fact turned in your other medication given yesterday. Dr. Chen will call in a prescription for 6 days supply #12 strips. Referrals: Daniel Bonilla MD (PCP) David Attestation Portions of this note were transcribed by Isabel Limon. I, Dr. Al personally performed the history, physical exam and medical decision-making; I reviewed and confirmed the accuracy of the information in the transcribed note. Signed by: David Russo, 05/03/16 and 1323 copies to: Daniel Bonilla MD, Kirk H MD May 03, 2016 11:30 ISABEL LIMON May 03, 2016 12:08
[2016-05-03 13:15] VITALS: BP 154/98; PULSE 96; RESP 16; O2SAT 100
== END 2016-05-03 12:50 | disposition home or self-care (01) ==
LOC: SED 11:00
DX: F11.20 Opioid dependence, uncomplicated (principal); F17.200 Nicotine dependence, unspecified, uncomplicated; Z59.0 Homelessness; Z86.14 Personal history of Methicillin resistant Staphylococcus aureus infection; Z88.0 Allergy status to penicillin; Z88.5 Allergy status to narcotic agent; Z88.8 Allergy status to other drugs, medicaments and biological substances

== ENCOUNTER 2016-05-13 15:54 | Emergency (ER) | payer OTHER ==
[~2016-05-13] VITALS: Ht 170.2 cm; Wt 75.0 kg
[2016-05-13 16:12] VITALS: BP 138/94; PULSE 79; RESP 15; O2SAT 100
[2016-05-13] MEDS ORDERED: BUPR1TAB36 PO (18:01)
[2016-05-13] MEDS ORDERED: BUPR1TAB36 SL (18:01)
[2016-05-13] MEDS ORDERED: 0.9% Sodium Chloride 1,000 ML IV ONE (18:14)
[2016-05-13] MEDS ORDERED: Ondansetron 2 mg/mL 2 mL Inj IVPUSH ONE (18:15)
--- NOTE | 2016-05-13 18:26 | ED.REPORT ---
HPI-Rash / Abscess Date of Service May 13, 2016 ED Provider: Darrell Mosley PA-C Jason is a 40-year-old female with a history of IV opioid abuse (currently on Suboxone), hidradenitis suppurativa, bipolar presents with chief complaint of infected incision site. Patient states that she was treated at here for "8 or 9 infected cysts" in her left axilla and perineum last week. Today she reports increasing redness, pain, discharge, feeling cold, 5 episodes of nonbloody vomiting as well as 2 days of watery diarrhea. She also complains of left arm numbness which has been present since her infections began. Presented to [facility] 2 days ago for similar symptoms. Treated with vancomycin and asked to follow-up with Dr. Ingram. She states she did not. She has not been able to soak her wound as directed because she lives in an . Review of records indicate that the patient was treated surgically on [address] Ingram for left axillary hidradenitis 2 as well as left medial buttocks hidradenitis 1 and a pilonidal cyst. Review of records indicates that she was treated 05/11/16t [facility] with IV vancomycin and clindamycin. Discharged with prescriptions for Bactrim and Keflex. Nursing Notes Stated Complaint: INFECTED INCISION Chief Complaint: Skin Rash/Abscess Nursing Notes Reviewed: Yes Allergies: Coded Allergies: Penicillins (Verified Allergy, Severe, Anaphylaxis, 04/07/16) codeine (Verified Allergy, Severe, Rash, 04/07/16) 05/06/14 -PATIENT RECEIVED DILAUDID X MANY DOSES iodine (Verified Allergy, Unknown, 04/07/16) miconazole (Verified Allergy, Unknown, Hives, 04/07/16) trazodone (Verified Allergy, Unknown, 04/07/16) Scheduled Buprenorphine/Naloxone 8-2 mg (Buprenorphine/Naloxone 8-2 mg) 1 Each Tab.subl 2 TAB PO QAM Buprenorphine/Naloxone 8-2 mg (Buprenorphine/Naloxone 8-2 mg) 1 Each Tab.subl 1 TABLET SL QPM Buspirone (Buspirone) 10 Mg Tablet 10 MG PO DAILY [place] Carbonate ([place] Carbonate) 150 Mg Capsule 300 MG PO TID Paroxetine HCl (Paroxetine ER) 25 Mg Tab.er.24h 25 MG PO DAILY Phenazopyridine (Phenazopyridine) 200 Mg Tablet 200 MG PO q3days Piroxicam (Piroxicam) 20 Mg Capsule 20 MG PO DAILY Prazosin (Prazosin) 1 Mg Capsule 1 MG PO HS Quetiapine Fumarate (Seroquel) 300 Mg Tablet 300 MG PO HS Scheduled PRN Tramadol (Tramadol) 50 Mg Tablet 50 MG PO Q4H PRN PRN For Pain General Time Seen by MD: 17:57 Chief Complaint Abscess Past Medical History Past Medical History Notes: [facility] Recent start of suboxone 04/07/2016 When asked when she was going to inform of suboxone use "I forgot" Past Medical History Bipolar disorder. History of MRSA abscesses. Nicotine dependence, active with smoking cigarettes. Morbid obesity. sepsis endocarditis Reports: Depression, Migraines Past Surgical History saliva gland removal Adenoidectomy Reports: Cholecystectomy, Hysterectomy, Tonsillectomy Smoking History Current Every Day Smoker Social History Homeless Alcohol Use: Denies alcohol use Drug Use: In recovery, IV drugs, Meth Ambulatory Status Independent Review of Systems General: Admits feeling cold. HEENT: Denies congestion, headache, sore throat. Respiratory: Denies dyspnea, cough, shortness of breath, wheezing. Cardiovascular: Denies chest pain, palpitations. Gastrointestinal: Admits vomiting, diarrhea, denies abdominal pain. Otherwise as noted in HPI. Physical Exam General: Ill appearing, well developed, well nourished, moderate distress. Left axilla: 2 surgical incisions close with sutures. Small surrounding area of redness and swelling. No discharge noted. Mild erythema and tenderness extends from axilla to medial aspect of left elbow Perineum: Several surgical incisions closed with sutures. Small surrounding areas of redness and swelling. No discharge noted. Moderate erythema and tenderness over her entire perineum extending to the inner thighs and buttocks. Head: Atraumatic, normocephalic. Eyes: No scleral icterus or injection. No discharge. Vision grossly intact. ENT: Voice clear, hearing grossly intact. Respiratory: Regular rate and rhythm. Breath sounds present, clear to auscultation and equal bilaterally. No respiratory distress. No increased work of breathing, speaks in complete sentences. Cardiovascular: Regular rate and rhythm, without murmur, gallop or rub. No pedal edema. Gastrointestinal: Abdomen flat and non-tender without guarding or rebound. Bowel sounds normoactive. Skin: Warm and dry. Neurological: Grossly nonfocal. Psychological: Slightly somnolent but Alert and oriented. Speech appropriate, linear and logical. Initial Vital Signs Vital Signs (First) Date Time Temp Pulse Resp B/P Pulse Ox O2 Delivery O2 Flow Rate FiO2 05/13/16 16:12 36.6 79 15 138/94 100 Room Air Initial VS: Vital signs abnormal (mild elevated blood pressure) Interpretation & Diagnostics Lab Results Interpretation Result Diagram: 05/13/16189905/13/161899 Test 05/13/16 19:00 White Blood Count 5.3th/mm3 (3.8-10.1) Red Blood Count 4.47mil/mm3 (3.90-5.20) Hemoglobin 13.0g/dL (12.0-15.6) Hematocrit 38.8% (35.0-46.0) Mean Corpuscular Volume 86.8fL (81-100) Mean Corpuscular Hemoglobin 29.1pg (27.0-35.0) Mean Corpuscular Hemoglobin Concent 33.5% (32.0-37.0) Red Cell Distribution Width 13.7% (12.3-15.4) Platelet Count 279bil/L (150-400) Neutrophils (%) (Auto) 43.9% (40-74) Lymphocytes (%) (Auto) 38.2% (14-46) Monocytes (%) (Auto) 12.7% (4-12) Eosinophils (%) (Auto) 4.2% (0-5) Basophils (%) (Auto) 0.8% (0-3) Sodium Level 135mEq/L (134-144) Potassium Level 4.5mEq/L (3.5-5.2) Chloride Level 99mEq/L (97-108) Carbon Dioxide Level 24mmol/L (18-29) Blood Urea Nitrogen 10mg/dL (6-24) Creatinine 0.43mg/dL (0.57-1.00) Estimat Glomerular Filtration Rate 233mL/min (>59) Glucose Level 85mg/dL (60-99) Lactic Acid Level 0.9mmol/L (0.4-2.0) Calcium Level 9.0mg/dL (8.5-10.1) Total Bilirubin 0.2mg/dL (0.0-1.2) Aspartate Amino Transf (AST/SGOT) 28U/L (0-50) Alanine Aminotransferase (ALT/SGPT) 22U/L (0-32) Alkaline Phosphatase 87U/L (25-150) Total Protein 6.9g/dL (6.4-8.4) Albumin 3.3g/dL (3.4-5.0) Re-Eval/Medical Decision Med Decision/Clinical Course Discussed this case with Dr. Gastelum who met with and examined the patient. 40-year-old female with a history of IV opiate abuse currently on Suboxone and presents with a chief complaint of infected surgical site. Patient was treated with 05/02/[address] Ingram for hydradenitis separate heel and her perineum and left axilla as well as a pilonidal cyst. Patient now complains of increased pain redness, swelling, discharge. She was seen 2 days ago at [facility] for complaint of same. Treated with vancomycin and clindamycin IV. Discharged on Keflex and Bactrim. Asked to follow-up the next day with Dr. Ingram, which she did not. On physical examination her vitals are within normal limits, surgical sites appear to be healing well with mild surrounding erythema and moderate tenderness. Patient appears somnolent. CBC, CMP and lactic acid are essentially normal. Dr. Gastelum met with and examined the patient. Feels that she is near her baseline. She is thought to be a good candidate for outpatient treatment with her current medication regimen. I discussed this with Dr. Ba an associate of Dr. Ingram's. He agrees with that assessment and asked that she follow up with Dr. Ingram next week. Consultation #1: Referral / Consult Name: Francisco Ba MD Consulted With: Surgeon Call Returned at: 19:07 Note: Discussed the case with Dr. Ba. He would prefer to have lab results available before making a decision. Consultation #2: Referral / Consult Name: Francisco Ba MD Consulted With: Surgeon Requested Call at: 20:33 Call Returned at: 20:40 Medical Data Entry Clerk: Will see in office Note: Discussed the lab results and Dr. Gastelum's findings on physical examination with Dr. pimentel. We agree she is a good candidate for outpatient treatment with her current medications. He asked that she follow up with Dr. Ingram next week. Discharge & Departure Impression: Primary Impression: Axillary abscess Additional Impressions: Abscess of buttock, left Pilonidal cyst with abscess Disposition: Home Discharge Condition All VS Reviewed: Yes Condition: Stable Additional Instructions: Evaluation in the emergency department for pain and swelling at surgical sites. Besides your recent surgery appear to be healing well, but with some mild redness, swelling and pain associated with them. We believe you should continue with the therapy prescribed to you at [facility]. Keep taking your Keflex and Bactrim as instructed. Keep your perineum clean with sitz baths twice daily. Continue taking your Suboxone as directed. you can also add 400 mg of ibuprofen (Advil, Motrin) every 6 hours, or 1000 mg of acetaminophen (Tylenol) every 6 hours. These drugs can be taken at the same time for more severe pain. Please contact Dr. Ingram's office tomorrow to arrange follow-up next week. Return to emergency department for any new or worsening symptoms including fever, increasing pain, swelling, discharge Referrals: Pollo Ingram MD EDSupervising Provider for APC: Josh Gastelum MD Attending Statement I personally examined this patient and reviewed relevant clinical data. I agree with the above plan and impression. copies to: Daniel Bonilla MD; Pollo Ingram MD, Seth PA-C May 13, 2016 18:26 Josh Gastelum MD May 13, 2016 22:44
[2016-05-13 19:24] LABS: BASOPHILS % (AUTO) 0.8 % (0-3); EOSINOPHILS % (AUTO) 4.2 % (0-5); MONOCYTES % (AUTO) 12.7 % (4-12); Mean Corpuscular Hemoglobin 29.1 pg (27.0-35.0); Mean Corpuscular Volume 86.8 fL (81-100); NEUTROPHILS % (AUTO) 43.9 % (40-74); Platelet Count 279 bil/L (150-400)
[2016-05-13 21:21] VITALS: BP 107/64; PULSE 100; RESP 20; O2SAT 97
== END 2016-05-13 21:27 | disposition home or self-care (01) ==
LOC: SED 15:54
DX: L02.412 Cutaneous abscess of left axilla (principal); L02.31 Cutaneous abscess of buttock; L05.01 Pilonidal cyst with abscess; F31.9 Bipolar disorder, unspecified; F17.200 Nicotine dependence, unspecified, uncomplicated; Z88.0 Allergy status to penicillin; Z59.0 Homelessness; Z88.5 Allergy status to narcotic agent; Z88.8 Allergy status to other drugs, medicaments and biological substances
CPT/HCPCS: 36415; 80053; 83605; 85025; 87040; 96372; 99284; J1885

== ENCOUNTER 2016-05-14 20:02 | Emergency (ER) | payer OTHER ==
[~2016-05-14 20:02] MED LIST changes: +BUPR1TAB36 PO; +BUPR1TAB36 SL
== END 2016-05-14 21:54 | disposition left against medical advice (07) ==
LOC: SED 20:02
DX: F11.10 Opioid abuse, uncomplicated (principal); Z53.21 Procedure and treatment not carried out due to patient leaving prior to being seen by health care provider

== ENCOUNTER 2016-05-17 03:35 | Inpatient (IN) | payer OTHER ==
[2016-05-17] VITALS (7 sets, daily range): BP systolic 101–137; BP diastolic 51–81; PULSE 78–95; RESP 14–18; O2SAT 90–100
[~2016-05-17] VITALS: Ht 170.2 cm; Wt 93.1 kg
[2016-05-17] MEDS ORDERED: Ondansetron 2 mg/mL 2 mL Inj IVPUSH PRN (05:45)
[2016-05-17] MEDS ORDERED: Alum-Mag Hydrox-Simeth 30 mL Suspension PO PRN (05:45)
--- NOTE | 2016-05-17 05:54 | PCM.HPMED ---
Subjective Date of Service May 17, 2016 Primary Provider: Admitting Physician: Sohan Dvais MD Primary Care Physician: Nopcp Attending Physician: Sohan Davis MD Chief Complaint: buttock pain History of Present Illness: 40yo lady with hx of iv drug abuse. had recent surgery to drain abcess from buttock/gluteal fold. since then has not followed up with her surgeon. pain, redness, swelling getting worse. pain at worse 10/10. some relief with pain medication. worse with movment, pressure to the area. associated with chills, nausea. went to outside er and transferred here. per the admitting er doctor case discussed with Dr. Walker. Review of Systems: REVIEW OF SYSTEMS: Positive Review of Symptoms mentioned and elaborated on in HPI. Head: Denies H/A, trauma, loss of consciousness. Eyes: Denies visual loss, diplopia. Ears: Denies: deafness, tinnitis, discharge, pain Nose: Denies discharge, obstruction, epistaxis Mouth: Denies sores, gingival bleeding, jaw pain Neck: Denies stiffness, issues swallowing. Respiratory: Denies dyspnea, cough, sputum. Cardiovascular:Denies CP, palpitations, orthopnea, peripheral edema Gastrointestinal: Denies melena, abd pain, n/v/d Genitourinary: Denies dysuria, discharge. Skin: see hpi Neuro: Denies numbness, tingling, weakness. Psyc: Currently denies feelings of anxiety, depression. Allergies Coded Allergies: Penicillins (Verified Allergy, Severe, Anaphylaxis, 04/07/16) codeine (Verified Allergy, Severe, Rash, 04/07/16) 05/06/14 -PATIENT RECEIVED DILAUDID X MANY DOSES iodine (Verified Allergy, Unknown, 04/07/16) miconazole (Verified Allergy, Unknown, Hives, 04/07/16) trazodone (Verified Allergy, Unknown, 04/07/16) Home Medications see med rec PMH see hpi Surgical History appendix, gallbladder, abscess drainage. Family History denies Social History Hx Alcohol Use: No Hx Substance Use: No (past hx of meth, clean since 2010) Hx Tobacco Use: Yes Smoking Status: Current Every Day Smoker Additional Information hx of iv drug/heroin abuse Exam Exam General: No acute distress. Awake, alert. Head: Normocephalic, atraumatic. Eyes: White sclera. Conjunctiva non-injected. Mouth & Throat: No Bleeding. No erythema, lesions, exudates visualized. Neck: No tender adenopathy. Trachea midline. Respiratory: Clear to auscultation bilaterally. Symmetric chest expansion. Regular work of breathing without use of accessory muscles. Cardiovascular:RRR no murmur Pulses 2+ equal bilaterally. Abdomen: Normal bowel sounds x4 quadrants. Soft, non-tender, non-distended. Extremities: Intact. no joint effusions. no lower extremity tenderness, swelling , erythema or increased warmth. Skin: buttock/ gluteal fold. erythema tenderness, fluctuance along L gluteal fold. Neurologic: Awake, alert, oriented x3. No focal deficits. Psychiatric: Appropriate mood and affect. Cooperative [facility] Diagnostics Labs pending. available outside medical records reviewed. Assessment & Plan -- gluteal, buttock abscess iv abx. surgical evaluation -- iv drug abuse director of social services evaluation. discussed dangers and risks of continuing to use iv drugs. cbc, cmp, blood cultures, a1c, hiv screen. f/e/n: npo dvt prophylaxis: hold in case of procedure today dispo: admit to inpt expected los >2 midnights. Resuscitation Status: CPR: Attempt Resuscitation Sohan Davis MD May 17, 2016 05:54
[2016-05-17] MEDS: levoFLOXacin Inj 750 MG in IV Premix 1 EACH IV SCH (06:30)
[2016-05-17 06:38] LABS: BASOPHILS % (AUTO) 0.2 % (0-3); EOSINOPHILS % (AUTO) 0.1 % (0-5); MONOCYTES % (AUTO) 5.3 % (4-12); Mean Corpuscular Hemoglobin 29.1 pg (27.0-35.0); Mean Corpuscular Volume 88.9 fL (81-100); NEUTROPHILS % (AUTO) 85.1 % (40-74); Platelet Count 262 bil/L (150-400)
[2016-05-17] MEDS ORDERED: Vancomycin Inj 2,000 MG in 0.9% Sodium Chloride 500 ML IV ONE ×2 (07:00→09:30)
--- NOTE | 2016-05-17 07:25 | NUR ---
admit pt arrived to [facility] room 1021 at 0515. VSS and a-febrile. she is alert and oriented. allowed nurse to see her buttocks. but has been sleeping since arrival and has been difficult to get to answer questions. she say she says she is tired and would like to be left alone for now. admit and med rec not complete at this time. pt refused assessment. attempted to orient pt to room, call light and bed controls. will continue to monitor.
--- NOTE | 2016-05-17 07:28 | PCM.CONPHA ---
Subjective Date of Service: May 17, 2016 Requesting Provider: Sohan Davis MD buttock pain History of Present Illness infection on recent surgery site (drain abscess) Reason for Pharmacy Consult: Vancomycin Dosing Objective Vital Signs Date Time Temp Pulse Resp B/P Pulse Ox O2 Delivery O2 Flow Rate FiO2 05/17/16 05:15 36.8 83 18 104/64 100 Room Air Weight (Kilograms): 90.400 Height (Feet): 5 Height (Inches): 7.00 Test 05/17/16 05:47 05/17/16 06:05 White Blood Count 14.3th/mm3 (3.8-10.1) Red Blood Count 4.22mil/mm3 (3.90-5.20) Hemoglobin 12.3g/dL (12.0-15.6) Hematocrit 37.5% (35.0-46.0) Mean Corpuscular Volume 88.9fL (81-100) Mean Corpuscular Hemoglobin 29.1pg (27.0-35.0) Mean Corpuscular Hemoglobin Concent 32.8% (32.0-37.0) Red Cell Distribution Width 14.0% (12.3-15.4) Platelet Count 262bil/L (150-400) Neutrophils (%) (Auto) 85.1% (40-74) Lymphocytes (%) (Auto) 9.1% (14-46) Monocytes (%) (Auto) 5.3% (4-12) Eosinophils (%) (Auto) 0.1% (0-5) Basophils (%) (Auto) 0.2% (0-3) Sodium Level 138mEq/L (134-144) Potassium Level 4.3mEq/L (3.5-5.2) Chloride Level 104mEq/L (97-108) Carbon Dioxide Level 20mmol/L (18-29) Blood Urea Nitrogen 7mg/dL (6-24) Creatinine 0.47mg/dL (0.57-1.00) Estimat Glomerular Filtration Rate 210mL/min (>59) Glucose Level 130mg/dL (60-99) Calcium Level 8.4mg/dL (8.5-10.1) Total Bilirubin 0.3mg/dL (0.0-1.2) Aspartate Amino Transf (AST/SGOT) 15U/L (0-50) Alanine Aminotransferase (ALT/SGPT) 15U/L (0-32) Alkaline Phosphatase 77U/L (25-150) Total Protein 5.6g/dL (6.4-8.4) Albumin 3.0g/dL (3.4-5.0) Assessment/Plan Assessment/Plan A/ - 40 y/o female patient readmitted in early this morning for worsening pain in the surgery site where abscess recently drained. Vancomycin needed for empirical coverage. She has hx IVDU, mostly recent hospitalized was last January for pneumonia. - Afebrile, WBC: 14.3, blood cultures (x2) pending - Wt: 90.4 kg, ht: 170 cm, SCr: 0.47 mg/dL, estimate clearance >150 ml/min, BMI: 31.2 kg/m2 - Comitant abx: Levaquin - Patient received Vancomycin 1G iv @0020 05/17 at different hospital prior to admission P/ - Give Vancomycin 1G iv q6h. Trough level ordered before 4th dose @1900 today. This regimen would produce a trough around 13 Pharmacy will continue to follow and make necessary adjustment Thank you for consulting clinical pharmacy in the care of this patient Xavier Rivers, PharmD, [facility] Feliz Rivers May 17, 2016 07:28
[2016-05-17] MEDS ORDERED: Vancomycin Inj 1,000 MG in IV Premix 1 EACH IV SCH ×2 (07:30→16:30)
[2016-05-17] MEDS: Vancomycin Dose per Pharmacist XX SCH (08:30)
[2016-05-17] MEDS ORDERED: 0.9% Sodium Chloride 250 ML ONE (09:13)
[2016-05-17] MEDS ORDERED: Ondansetron 2 mg/mL 2 mL Inj ONE (09:49)
[2016-05-17] MEDS ORDERED: Dexamethasone 4 mg/mL Inj ONE (09:49)
[2016-05-17] MEDS ORDERED: Propofol 10,000 mCg/mL 20 mL Inj ONE (09:49)
[2016-05-17] MEDS ORDERED: fentaNYL-PF 50 mCg/mL 2 mL Inj ONE (09:49)
[2016-05-17] MEDS ORDERED: HYDROmorphone 2 mg/mL Inj ONE (09:49)
[2016-05-17] MEDS ORDERED: Lidocaine PF 1% 30 mL Inj ONE (09:49)
--- NOTE | 2016-05-17 10:43 | PROG NOTE ---
[address] [address] PROGRESS NOTE PATIENT: POPPY BONILLA : 1975 MR#: [id number] ADMIT: 05/17/2016 JOB ID: [id number] DATE: 05/17/2016 PROGRESS NOTE: The patient was admitted last night with complaints of pain in the intergluteal cleft area. She is a 40-year-old female with a history of substance abuse, including heroin injection, for whom Dr. Carlitos Ingram performed excision of axillary and buttock hidradenitis, as well as a pilonidal cyst on May 02, 2016. She tells me that yesterday she developed pain in the area of the intergluteal cleft excision. She was transferred from an outside facility. She has a leukocytosis of 14.3. She is otherwise afebrile hemodynamically normal. I inspected the area. There is some erythema surrounding the closed incision. There were interrupted sutures in place. There is a little bit of induration. It is exquisitely tender. I do suspect that there is likely an infected fluid collection. ASSESSMENT AND PLAN: This is a 40-year-old female, status post excision of pilonidal disease over the last month coming with concerns for a localized wound infection. I will take the patient to the operating room this afternoon to explore that wound. I informed her that I am going to leave the wound open. It will have to heal by secondary intention. She will likely have to get [facility].
[2016-05-17] MEDS ORDERED: ALBU8.5H2 INHALATION (10:53)
[2016-05-17] MEDS ORDERED: CLON2TAB PO (10:53)
[2016-05-17] MEDS ORDERED: ADV250INH IH (10:54)
--- NOTE | 2016-05-17 11:18 | NUR ---
Admit nurse: Admit completed, med rec updated per pt interview. Pt very open to answering questions at this time, requests oncology social work to assess for housing assistance, piano case maker notified. Pt requesting nicotine patch, primary RN notified.
[2016-05-17] MEDS ORDERED: Lactated Ringer's 1,000 ML IV ONE ×2 (13:26→13:56)
--- NOTE | 2016-05-17 13:41 | NUR ---
Pt off unit Pt taken to O.R. at 1330 hrs. Family with pt. PIV saline locked.
--- NOTE | 2016-05-17 13:49 | PCM.HPANE ---
Patient Data Date of Service: May 17, 2016 Surgeon Admitting Provider:Sohan Davis MD Attending Provider:Sohan Davis MD Primary Care Physician:Nopcp Other Provider: Reason for Visit Wound Infection Ht/WT & BMI Height (Feet): 5 Height (Inches): 7.00 Weight (Kilograms): 90.400 Body Mass Index 31.28 Allergies Coded Allergies: Penicillins (Verified Allergy, Severe, Anaphylaxis, 04/07/16) codeine (Verified Allergy, Severe, Rash, 04/07/16) 05/06/14 -PATIENT RECEIVED DILAUDID X MANY DOSES iodine (Verified Allergy, Unknown, 04/07/16) miconazole (Verified Allergy, Unknown, Hives, 04/07/16) trazodone (Verified Allergy, Unknown, 04/07/16) Past Anesthesia History Anesthesia History: Denies:: Anesthesia Reactions Diabetes History Hx Diabetes?: No MRSA MRSA: Yes (several times) Medications Home Meds Incl Beta Eulalio: No Reported Medications Fluticasone/Salmeterol (Advair 250-50 Diskus)60 Puff/Inh Disk1 Puff IH BID #1 DISK Ref 0 05/17/16 Albuterol HFA (Proair HFA)8.5 Gm Hfa.aer.ad2 Puffs INHALATION BID PRN For Shortness of Breath #1 INHALER 05/17/16 Clonazepam (Klonopin)2 Mg Tablet2 Mg PO BID PRN For Anxiety Ref 0 05/17/16 Buprenorphine/Naloxone 8-2 mg 1 Each Tab.subl1 Tablet SL QPM Ref 0 05/13/16 Buprenorphine/Naloxone 8-2 mg 1 Each Tab.subl2 Tab PO QAM #10 05/13/16 Tramadol 50 Mg Cjykse77 Mg PO Q4H PRN For Pain Ref 0 05/01/16 Quetiapine Fumarate (Seroquel)300 Mg Mvkcyb469 Mg PO HS Ref 0 05/01/16 Prazosin 1 Mg Capsule1 Mg PO HS 05/01/16 Piroxicam 20 Mg Tydnovr12 Mg PO DAILY 05/01/16 Phenazopyridine 200 Mg Lsonsq803 Mg PO q3days Ref 0 05/01/16 Paroxetine HCl (Paroxetine ER)25 Mg Tab.er.24h25 Mg PO DAILY 05/01/16 [place] Carbonate 150 Mg Dcpsnre610 Mg PO TID 05/01/16 Buspirone 10 Mg Zpsnhx93 Mg PO DAILY Ref 0 05/01/16 History History of ENT Problems?: Yes HEENT History: Positive for:: Glaucoma (surgery on 1 eye) Denies:: Cataracts Dysphagia Sinus Problem Hx of Heart Problems?: Yes Cardiovascular History: Positive for:: Edema Denies:: Cardiac Surgery Chest Pain Congestive Heart Failure Heart Murmur Hypertension Irregular Heartbeat Pacemaker Thrombophlebitis Other Cardiac History: endocarditis 2010 and 2013 Hx of Respiratory Problem?: Yes Respiratory History: Positive for:: Dyspnea (with activity) Pneumonia Denies:: Asthma COPD Chest Surgery Emphysema Hemoptysis Tuberculosis Hx Neurologic Problems?: Yes Neurological History: Positive for:: Headaches (migraines) Denies:: Alzheimer's Disease CVA Dementia Dizziness Parkinson's Disease Seizures Hx of GI Problems?: Yes Gastrointestinal History: Positive for:: Diverticulitis Gastroesphageal Reflux Gastrointestinal Bleeding Heartburn Hepatitis (HEP C hx) Rectal Bleeding Denies:: Hiatal Hernia Hx of Problems?: Yes Genitourinary History: Positive for:: Kidney Stones Urinary Tract Infection Denies:: HX of Hemodialysis HX of Peritoneal Dialysis: No Female Hx: Positive for:: Pelvic Inflammatory Denies:: Currently (urine pg neg) Endometriosis Problems with Breasts? Skin History: Positive for:: History Skin Disorders? (left axillary and left buttock hidradenitis current admission problem) Denies:: Pressure Ulcers Hx Musculoskeletal Problems?: Yes Musculoskeletal History: Positive for:: Back Injury ("broke my back when I was 16") Denies:: Joint Replacement Musculoskeletal Trauma Hx of Psycho/Social Problems?: Yes Psycho Social History: Positive for:: Anxiety Bipolar Disorder Hx Depression Suicide Attempt (no current plan, jumped off bridge) Hx Surgeries?: Yes (salivary duct removed, tonsils, hysterectomy, adnoids, removed) Hx Any Other Health Problems?: Yes Other History: Positive for:: Hospitalization Denies:: Cancer Endocrine Disease Thyroid Disease History Blood Transfusions: Positive for:: Accept Blood Products? Blood Transfusions Denies:: Blood Transfuse Reaction Hx Diabetes: No Hx Alcohol Use: NoHx Substance Use: Yes (heroin) Smoking Status: Current Every Day Smoker Have You Smoked inLast 12 mo: YesApprox How Many Cigarettes/day: 1pk/day Stop/Bang Treated for Sleep Apnea?: No Do You Have a CPAP Machine?: No S-Snoring: Do You Snore Loudly: Yes T-Tired: feel tired, fatigued: Yes O-Obsered: Observed not breath: No P-Blood Pressure: treated: No B- Body Mass Index > 35 kg/m2: No A- Age over 50: No N- Neck Large Circumference: No G- Gender Male: No URBANO Total Score: 2 URBANO Risk Assessment: Low Risk, <3 Yes Risk Assessment Category Category 1A: Patient has history of documented sleep apnea, and HAS NOT received any narcotic, sedative or anesthesia administration during this stay. Category 1B: Patient has history of documented sleep apnea, and HAS received any narcotic , sedative or anesthesia administration during this stay Category 2: Patient has SUSPECTED Obstructive Sleep Apnea, and HAS received any narcotic , sedative or anesthesia administration during this stay. Category 3: Patient has SUSPECTED Obstructive Sleep Apnea and HAS NOT received narcotic, sedative or anesthesia administration during this stay. Category 4: Outpatient in Procedural Areas with known sleep apnea or who screen positive for High Risk via the STOP/BANG questionnaire. Exam Exam General Appearance: Alert, Oriented X3, Cooperative, Mild Distress (pain 8/10) HEENT/AIRWAY: MP 2 Lungs: Normal Air Movement Heart: Exam Unremarkable Meds/Labs/Diagnostics Admission Meds Current Medications Levofloxacin/ Dextrose 750 mg/ Premix 150 ml @ 100 mls/hr Q24H IV Last administered on 05/17/16 06:30; Start 05/17/16 at 06:30 Vancomycin HCl 2000 mg/Sodium Chloride 500 ml @ 250 mls/hr ONCE ONCE IV Last administered on 05/17/16 10:06; Start 05/17/16 at 09:30; Stop 05/17/16 at 11:29; Status DC Sodium Chloride (Normal Saline) 250 ml @ STK-MED ONCE .ROUTE Last administered on 05/17/16 09:20; Start 05/17/16 at 09:13; Stop 05/17/16 at 09:14; Status DC Labs Test 05/17/16 05:47 05/17/16 06:05 05/17/16 11:16 White Blood Count 14.3th/mm3 (3.8-10.1) Red Blood Count 4.22mil/mm3 (3.90-5.20) Hemoglobin 12.3g/dL (12.0-15.6) Hematocrit 37.5% (35.0-46.0) Mean Corpuscular Volume 88.9fL (81-100) Mean Corpuscular Hemoglobin 29.1pg (27.0-35.0) Mean Corpuscular Hemoglobin Concent 32.8% (32.0-37.0) Red Cell Distribution Width 14.0% (12.3-15.4) Platelet Count 262bil/L (150-400) Neutrophils (%) (Auto) 85.1% (40-74) Lymphocytes (%) (Auto) 9.1% (14-46) Monocytes (%) (Auto) 5.3% (4-12) Eosinophils (%) (Auto) 0.1% (0-5) Basophils (%) (Auto) 0.2% (0-3) Sodium Level 138mEq/L (134-144) Potassium Level 4.3mEq/L (3.5-5.2) Chloride Level 104mEq/L (97-108) Carbon Dioxide Level 20mmol/L (18-29) Blood Urea Nitrogen 7mg/dL (6-24) Creatinine 0.47mg/dL (0.57-1.00) Estimat Glomerular Filtration Rate 210mL/min (>59) Glucose Level 130mg/dL (60-99) Calcium Level 8.4mg/dL (8.5-10.1) Total Bilirubin 0.3mg/dL (0.0-1.2) Aspartate Amino Transf (AST/SGOT) 15U/L (0-50) Alanine Aminotransferase (ALT/SGPT) 15U/L (0-32) Alkaline Phosphatase 77U/L (25-150) Total Protein 5.6g/dL (6.4-8.4) Albumin 3.0g/dL (3.4-5.0) Urine HCG, Qualitative Negative (Negative) Urine Opiates Screen Positive Urine Methadone Screen Negative Urine Barbiturates Screen Negative Urine Amphetamines Screen Positive Urine Benzodiazepines Screen Negative Urine Cocaine Metabolite Screen Negative Urine Cannabinoids Screen Negative Plan Impression Patient chart reviewed, patient interviewed and anesthestic plan with risks, benefits, and alternatives discussed, and informed consent obtained. NPO Status: 05/01@1400, water @ 0630 ASA Physical Status: ASA3 Severe Disease Anesthetic Plan: GA Bene/Risks/Altern/Consents: Yes HP Complete Prior to Induction: Yes Joshua Sahu MD May 17, 2016 13:26
[2016-05-17] MEDS ORDERED: Lactated Ringer's 1,000 ML IV SCH (14:22)
[2016-05-17] MEDS ORDERED: Lactated Ringer's 500 ML IV PRN (14:22)
[2016-05-17] MEDS ORDERED: Dexamethasone 4 mg/mL Inj IVPUSH PRN (14:25)
[2016-05-17] MEDS ORDERED: MetoCLOpramide 5 mg/mL 2 mL Inj IVPUSH PRN (14:25)
[2016-05-17] MEDS ORDERED: HYDROmorphone 1 mg/mL Inj IVPUSH PRN (14:25)
[2016-05-17] MEDS ORDERED: EPHEDrine Sulfate 50 mg/mL Inj IVPUSH PRN (14:25)
[2016-05-17] MEDS ORDERED: Atropine 0.4 mg/mL Inj IVPUSH PRN (14:25)
[2016-05-17] MEDS ORDERED: Labetalol 5 mg/mL 4 mL Inj IV PRN (14:25)
[2016-05-17] MEDS ORDERED: fentaNYL-PF 50 mCg/mL 2 mL Inj IVPUSH PRN (14:25)
[2016-05-17] MEDS ORDERED: Phenylephrine 10,000 mCg/mL Inj IVPUSH PRN (14:25)
[2016-05-17] MEDS ORDERED: Albuterol-Ipratropium 3 mL Inhalation Solution NEB PRN (14:25)
--- NOTE | 2016-05-17 14:40 | PCM.ANEP1 ---
Post Anesthesia Phase 1 PACU Phase 1 Assessment Date of Service: May 17, 2016 Vital Signs VSS see nurses note or anesthesia record Anesthetic Administered: GA Level of Alertness: Drowsy, not talking Nausea or Vomiting: No Oxygen Delivery: Simple Mask Lungs: Normal Air Movement Joshua Sahu MD May 17, 2016 14:40
--- NOTE | 2016-05-17 15:14 | PCM.ANEP2 ---
Post Anesthesia Evaluation ASA/CMS Post Anesthesia Date of Service: May 17, 2016 VS in Patient's Normal Range?: Yes Resp Stable; Airway Patent?: Yes CV Function & Hydration Stable: Yes Mental Status Recovered?: Yes Pain control Satisfactory?: Yes N/V Control Satisfactory?: Yes Joshua Sahu MD May 17, 2016 15:14
--- NOTE | 2016-05-17 15:46 | NUR ---
Return to [facility] Pt returned to unit from PACU at 1515. A & O x 3. PIV intact and asymptomatic. VSS. Pt c/o 10/10 pain and itching. Redness and rash noted on right arm and thighs. Administered 25 mg IVP Benadryl and 2 mg IVP morphine. Pt falling asleep easily. Care continues.
--- NOTE | 2016-05-17 15:47 | OP ---
[address] [address] OPERATIVE REPORT PATIENT: POPPY BONILLA : 1975 MR#: [id number] ADMIT: 05/17/2016 JOB ID: [id number] DATE OF SURGERY: 05/17/2016 ANESTHESIA: General. PREOPERATIVE DIAGNOSIS(ES): Wound infection at pilonidal excision site. POSTOPERATIVE DIAGNOSIS(ES): Wound infection at pilonidal excision site. PROCEDURES: Incision and drainage of intergluteal cleft abscess. SURGEON: Dr. Francisco Ba. RHEUMATOLOGIST: Benjamin Hawkins PA-C COMPLICATIONS: None. ESTIMATED BLOOD LOSS: Minimal. CONDITION: Satisfactory. SPECIMEN: Wound cultures were sent. FINDINGS: The patient's midline incision from her pilonidal cyst excision was almost completely healed. This was opened with combination of blunt dissection and sharply. There was about 15 mL of purulent material drained. I extended the incision both superiorly and inferiorly to facilitate easy packing. INDICATIONS/SIGNIFICANT HISTORY: The patient is a 40-year-old female, who several weeks ago underwent excision of a pilonidal cyst with primary closure performed by one of my colleagues. Yesterday, she developed pain in the area of the intergluteal cleft for which she went to an outside facility where she was noted to have leukocytosis. She was transferred to our facility and I was asked to see her. She had obvious signs of an infection. OPERATIVE TECHNIQUE: The patient was taken to the operating room and general anesthesia was administered. She was then placed in the prone position. She was already on broad-spectrum antibiotics. The intergluteal cleft region was prepped and draped in a standard surgical fashion and a procedure pause was performed. I began by removing her sutures from her prior operation. I then bluntly opening the old incision. A moderate amount of purulent material was drained. I extended the incision both inferiorly and superiorly. The abscess cavity tracked up to the left. This was irrigated out and then packed with a single gauze. MTDD
--- NOTE | 2016-05-17 16:15 | NUR ---
Social Work: Screen D: Per EMR review, pt is a 40 year old female admitted for gluteal, buttock abscess. Pt insurance is [employer]. PCP is not listed. Readmit score not entered at this time. Advanced directives not completed- CHEMICAL SUPERVISOR will provide pt with information when appropriate. Case Management referral received by MD due to pt's history of substance use including IV heroin use. Pt reported to staff that she has been sober for several years. Pt is connected with [facility] for Suboxone, per past ER visits. Pt is off the floor for an I&D- CHEMICAL SUPERVISOR will follow up with the pt tomorrow to discuss discharge planning and to complete CD assessment. Pt may benefit from a CPD bedside assessment from [facility], if she is willing to sign consents and an GHASSAN. A: Pt lives in [place] and is I at baseline. Plan: Anticipate pt to discharge home via POV once medically stable; CHEMICAL SUPERVISOR to follow up with pt re: CD assessment and dcp prior to d/c. OLEKSANDR Nelson
[2016-05-17] MEDS: HYDROmorphone PCA 0.2 mg/mL 30 mL Inj IV PRN ×2 (18:06→22:54)
[2016-05-17] MEDS: Polyethylene Glycol (PEG) 17 Gm Powder PO PRN (18:24)
[2016-05-17] MEDS ORDERED: Vancomycin Serum Trough XX ONE (22:00)
[2016-05-18] MEDS: Vancomycin Inj 1,000 MG in IV Premix 1 EACH IV SCH ×4 (00:29→18:45)
[2016-05-18 00:33] VITALS: BP 121/71; PULSE 93; RESP 17; O2SAT 98
[2016-05-18] MEDS: HYDROmorphone PCA 0.2 mg/mL 30 mL Inj IV PRN ×2 (01:30→08:57)
--- NOTE | 2016-05-18 02:01 | NUR ---
Nausea/itching/dressing Pt on Dilaudid HOME HEALTH CLINICIAN, c/o nausea x2, rec'd zofran with + effects. Pt stated nothing sounds good to eat and that is why she is nauseated. Pt tolerating PO fluids. Pt c/o itching and rec'd benadryl with + effects. Wound dressing- wet to dry- had to be replaced x2
--- NOTE | 2016-05-18 02:11 | PCM.PHAPRO ---
Progress Date of Service: May 18, 2016 Vancomycin dosing by pharmacy for a 40 y/o IVDA woman with buttock abscess A: * This patient has received several different doses of vancomycin * A vancomycin level of 15.7 mcg/mL was drawn 4 hours after a 1000 mg dose * It would appear that vancomycin 1000 mg every 6 hours would produce an appropriate trough level * Cultures are pending P: * Continue vancomycin 1000 mg every 6 hours * Target a trough range of 15 - 20 mcg/mL for now * Drawing a vancomycin trough level after four more doses * Monitor renal function Thank you. Pharmacy will continue to follow this patient. Debo George, PharmD Debo George May 18, 2016 02:11
[2016-05-18 05:43] VITALS: BP 108/67; PULSE 86; RESP 19; O2SAT 96
[2016-05-18 06:49] LABS: BASOPHILS % (AUTO) 0.2 % (0-3); EOSINOPHILS % (AUTO) 0.4 % (0-5); MONOCYTES % (AUTO) 10.8 % (4-12); Mean Corpuscular Hemoglobin 29.2 pg (27.0-35.0); Mean Corpuscular Volume 89.6 fL (81-100); NEUTROPHILS % (AUTO) 75.9 % (40-74); Platelet Count 256 bil/L (150-400)
[2016-05-18] MEDS: Ondansetron 2 mg/mL 2 mL Inj IVPUSH PRN ×2 (08:23→17:51)
[2016-05-18 08:24] VITALS: BP 108/67; PULSE 71; RESP 18; O2SAT 96
[2016-05-18] MEDS: Vancomycin Dose per Pharmacist XX SCH (08:30)
[2016-05-18] MEDS: levoFLOXacin Inj 750 MG in IV Premix 1 EACH IV SCH (09:50)
[2016-05-18 11:32] VITALS: RESP 16; O2SAT 96
--- NOTE | 2016-05-18 11:35 | NUR ---
TRICOT KNITTING MACHINE OPERATOR DC'd dilaudid TRICOT KNITTING MACHINE OPERATOR discontinued at 1130hrs. Oxycodone 10 mg was given 30 minutes prior. patient rates pain 3/10 at time of TRICOT KNITTING MACHINE OPERATOR discontinued. continue to monitor.
--- NOTE | 2016-05-18 12:09 | PCM.PNMED ---
Subjective Date of Service May 18, 2016 Subjective patient underwent I&D well, started on TOOL CRIB CLERK until this AM, switched to oral opioid. c/o increasing tender mass on Lt labium, Lt upper chest Exam Vital Signs Vital Sign - Last Date Time Temp Pulse Resp B/P Pulse Ox O2 Delivery O2 Flow Rate FiO2 05/18/16 11:32 16 96 05/18/16 08:24 36.6 71 108/67 Room Air 05/17/16 14:45 10 Intake and Output 05/17/16 05/17/16 05/18/16 Cumulative From/Thru 15:00 23:00 07:00 05/17/16 05:15 - 05/18/16 06:04 Intake Total 891 ml 200 ml 2315 ml 3406 ml Output Total 1550 ml 1550 ml Balance 891 ml 200 ml 765 ml 1856 ml Intake Oral 918 ml 918 ml IV Total 891 ml 200 ml 1397 ml 2488 ml Output Urine Total 1550 ml 1550 ml Exam NAD, comfortably laying down on the bed no JVD, MMM, no LAD RRR, nl s1, s2 no mrg CTAB, no w,c S,ND,NT,normoactive BS+ warm, no edema, pulses 2/2 perianal area, s/p surgical scar, labia majora around 3oclock, palpable mildly tender mass, 2cm IVs and Medications Medications Reviewed: Medications were reviewed in detail Lab and Diagnostics Result Diagram: 05/18/1645 05/18/16 0545 Assessment & Plan acute, active #gluteal, buttock abscess, POA, s/p ID 4days prior to adm, recurrent. underwent ID on 05/18 again, -pt remained clinicaly stable, no sign of sepis, -awaits final culture result, preliminary group B strep, no MRSA -will switch to oral based on sensitivity, continue vanc/Levaquin for now -pain control, dvt ppx per surgery -patient noticed new mass on labium, unclear this could be abscess, appreciate surgery input #hx of IVDU, POA, UTOX+ opioid, Amphetamine, -appreciate SW input, encourage complete cessation. dispo: likely in 1-2more days, complicated given wound care, undomicilled regular diet dvt prophylaxis: per surgery VTE Mechanical Devices: Intermittant Pneumatic CD Resuscitation Status: CPR: Attempt Resuscitation Time spent 35min Suki Mims MD May 18, 2016 12:08
[2016-05-18] MEDS: Polyethylene Glycol (PEG) 17 Gm Powder PO PRN (13:20)
--- NOTE | 2016-05-18 13:51 | PROG NOTE ---
[address] [address] PROGRESS NOTE PATIENT: POPPY BONILLA : 1975 MR#: [id number] ADMIT: 05/17/2016 JOB ID: [id number] DATE: 05/18/2016 SUBJECTIVE: The patient is seen in followup. She is feeling better after debridement of her pilonidal wound last night. She has no nausea. She states that the pain medicine wears off too quickly and so is requesting more pain medicine. OBJECTIVE: Temperature 36.6, pulse 71, blood pressure 108/67, saturation 96% on room air. General: She is resting in bed on her side in no acute distress. Skin: The buttock wound was evaluated. There is no erythema of the periwound skin. Packing was removed which contained scant purulent debris. The base of the wound has viable soft tissues. The wound was repacked with saline moistened gauze and covered with a peripad. LABORATORIES: White blood cell count 14.9, hematocrit 32.8, platelets 256. ASSESSMENT AND PLAN: A 40-year-old woman status post incision and drainage of intergluteal cleft abscess after prior pilonidal excision. She is doing well clinically. The wound is clean. She should have the wound packed daily with wet-to-dry gauze. Antibiotics will be continued. For pain medication, I recommended discontinuing the CALENDER WORKER HELPER and starting her on oral pain medication.
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
--- NOTE | 2016-05-18 18:06 | NUR ---
FRANK Patient reports a hard lump on left labia, states its gotten bigger then yesterday. Not draining. Gluteal clef incision site is packed with gauze dressing, peripad in place. No drainage noted on richie pad. Continues on IV vanco and levaquin. Pain managed with oxycodone 10mg.
--- NOTE | 2016-05-18 18:08 | NUR ---
AGITATION Patient also tried to leave unit today with daughter to visit a friend in the center. Became very agitated when community health consultant called for her to come back to the unit. Stating she was going to leave. Talked with patient and was able to calm her down. She stated she was agitated and feeling on edge because she hadn't had her medications for PTSD, anxiety and depression. I explained the doctor had just re ordered them today and they would be starting tonight. This made her feel a lot better. She walked to the front and apologized to the UA.
[2016-05-18] MEDS: BusPIRone 15 mg Dividose Tablet PO SCH (18:30)
[2016-05-18 20:00] VITALS: BP 138/68; PULSE 69; RESP 16; O2SAT 96
[2016-05-19] MEDS: Vancomycin Inj 1,000 MG in IV Premix 1 EACH IV SCH (00:37)
--- NOTE | 2016-05-19 01:53 | NUR ---
Agitation/sleep Pt re-started her medications for PTSD, anxiety and depression. She fell asleep and slept soundly, barely waking for assessments and questions about pain. She did not request any PRN pain meds all night. 0 ASE's noted to antibiotics, dressing to gluteal fold is intact, minimal drainage
--- NOTE | 2016-05-19 04:11 | NUR ---
Pain Pt just woke at 0400 and was in extreme pain when she rolled over, she did not realize she had slept so soundly all night and hadnt taken any PRN meds. Administered oxycodone and Pt requested clonazepam. Pt back asleep
[2016-05-19] MEDS ORDERED: Vancomycin Serum Trough XX ONE (05:30)
[2016-05-19] MEDS: levoFLOXacin Inj 750 MG in IV Premix 1 EACH IV SCH (05:39)
[2016-05-19 06:33] LABS: BASOPHILS % (AUTO) 0.5 % (0-3); EOSINOPHILS % (AUTO) 6.6 % (0-5); MONOCYTES % (AUTO) 8.2 % (4-12); Mean Corpuscular Hemoglobin 28.9 pg (27.0-35.0); Mean Corpuscular Volume 88.7 fL (81-100); NEUTROPHILS % (AUTO) 52.6 % (40-74); Platelet Count 254 bil/L (150-400)
[2016-05-19 06:49] VITALS: BP 148/68; PULSE 64; RESP 16; O2SAT 98
[2016-05-19 07:05] LABS: Magnesium 1.7 mg/dL (1.6-2.6); Phosphorus 3.5 mg/dL (2.5-4.9)
--- NOTE | 2016-05-19 08:03 | PCM.PHAPRO ---
Progress Vancomycin supertherapeutic trough returned at 22. Reduced dose to 1gram q8. Pharmacy will continue to follow. Reece Schneider Pharm.D May 19, 2016 08:03
[2016-05-19] MEDS: Ondansetron 2 mg/mL 2 mL Inj IVPUSH PRN (08:25)
[2016-05-19] MEDS: BusPIRone 15 mg Dividose Tablet PO SCH (08:25)
[2016-05-19] MEDS: PAROXETINE 25 MG PO SCH (08:29)
[2016-05-19] MEDS ORDERED: Vancomycin Inj 1,000 MG in IV Premix 1 EACH IV SCH (09:00)
--- NOTE | 2016-05-19 09:56 | PROG NOTE ---
[address] [address] PROGRESS NOTE PATIENT: POPPY BONILLA : 1975 MR#: [id number] ADMIT: 05/17/2016 JOB ID: [id number] DATE: 05/19/2016 SUBJECTIVE: Poppy is seen in followup. She is feeling better from the aspect of her gluteal cleft wound. She brings to my attention a swollen area in the left labia majora. It is mildly painful. There has not been any labial drainage. OBJECTIVE: Temperature 37.1, pulse 64, blood pressure 148/68, saturation 98% on room air. General, she is resting in bed in no acute distress. Skin: The gluteal cleft wound was re-packed. The base is clean. There is no erythema of the periwound skin. The wound was re-packed with saline moistened 4 x 4 gauze and covered with an abdominal pad. : The left labia majora was evaluated. There is a 1 cm firm nodule, grossly consistent with a Bartholin's cyst. LABORATORIES: White count is 9.5, hematocrit 32.2, platelets 254. Creatinine 0.59. Procalcitonin 0.04. ASSESSMENT AND PLAN: A 40-year-old woman status post incision and drainage of a gluteal cleft abscess from prior pilonidal excision. She is doing well from that standpoint and I think she could be discharged from the hospital. I suspect that she has a left Bartholin's cyst, and recommended follow up with Gynecology for that. She is homeless and so at discharge arrangements will be slightly more complicated. Apparently we are looking into the [facility] for wound care. She does not have anybody who can do wound care, so when she is discharged, she will need daily follow up in the [facility].
[2016-05-19] MEDS: Vancomycin Dose per Pharmacist XX SCH (10:11)
[2016-05-19 10:26] VITALS: BP 118/72; PULSE 84; RESP 15; O2SAT 96
--- NOTE | 2016-05-19 11:18 | PCM.PNMED ---
Subjective Date of Service May 19, 2016 Subjective patient has mild pain from I&D, otherwise calm, not anxious resumed home psych meds yesterday Exam Vital Signs Vital Sign - Last Date Time Temp Pulse Resp B/P Pulse Ox O2 Delivery O2 Flow Rate FiO2 05/19/16 10:26 36.8 84 15 118/72 96 Room Air 05/17/16 14:45 10 Intake and Output 05/18/16 05/18/16 05/19/16 Cumulative From/Thru 15:00 23:00 07:00 05/17/16 05:15 - 05/19/16 06:49 Intake Total 1333 ml 815 ml 5554 ml Output Total 450 ml 2000 ml Balance 1333 ml 365 ml 3554 ml Intake Oral 1080 ml 250 ml 2248 ml IV Total 253 ml 565 ml 3306 ml Output Urine Total 450 ml 2000 ml # Voids 3 3 # Bowel Movements 0 0 Exam NAD, comfortably laying down on the bed no JVD, MMM, no LAD RRR, nl s1, s2 no mrg CTAB, no w,c S,ND,NT,normoactive BS+ warm, no edema, pulses 2/2 perianal area, s/p surgical scar, labia majora around 3oclock, palpable mildly tender mass, 2cm IVs and Medications Medications Reviewed: Medications were reviewed in detail Lab and Diagnostics Result Diagram: 05/19/16 0555 05/19/16 0555 Assessment & Plan acute, active #gluteal, buttock abscess, POA, s/p ID 4days prior to adm, recurrent. underwent ID on 05/18 again, final culture shows Strep Dysgalac, sensitive to PCN -pt remained clinicaly stable, no sign of sepis, -s/p vancomycin, Levaquin, switched to Keflex 500 qid today, will finish 14days course in total, likely 10more days of Rx tomorrow -pain control, dvt ppx per surgery #cystic lesion on Labium, noticed 05/18, stable -patient noticed new mass on labium, suggestive of Bartholin's cyst per Surgery , recommended CONSULTING PSYCHIATRIST follow up, Please arrange tomorrow. #hx of IVDU, POA, UTOX+ opioid, Amphetamine, -appreciate SW input, encourage complete cessation. dispo: patient needs establishment with PCP, wound care, needs place to be discharged, appreciate SW/CM input tomorrow. regular diet dvt prophylaxis: per surgery VTE Mechanical Devices: Intermittant Pneumatic CD Resuscitation Status: CPR: Attempt Resuscitation Time spent 35min Suki Mims MD May 19, 2016 11:18
[2016-05-19 14:11] VITALS: BP 97/57; PULSE 75; RESP 12; O2SAT 97
[2016-05-19 15:34] VITALS: BP 124/85; PULSE 85; RESP 16; O2SAT 97
[2016-05-19] MEDS: Polyethylene Glycol (PEG) 17 Gm Powder PO PRN (16:43)
--- NOTE | 2016-05-19 17:38 | NUR ---
PAIN/ACTIVITY Patient slept very soundly from 8112-1130. Mumbled when vital signs were taken but remained asleep, then awoke and asked for pain medication. Took shower with minimal assistance for set up. Packing was removed from left gluteal clef and replaced with new wet-to-dry dressing. Minimal drainage from previous dressing. Antibiotics were switched to PO. Pain controlled well with oral oxycodone.
--- NOTE | 2016-05-19 17:42 | NUR ---
Constipation Patient states she feels constipated. Received miralax last 2 days in a row. Administered miralax and senna today, encouraged ambulation and fluids.
[2016-05-19 18:00] VITALS: BP 163/99; PULSE 76; RESP 16; O2SAT 98
[2016-05-19 20:05] VITALS: BP 160/100; PULSE 85; RESP 17; O2SAT 98
--- NOTE | 2016-05-20 03:56 | NUR ---
constipation at start of shift pt complained that it felt like there was a large mass of stool that she couldn't pass. MD ordered a mineral oil enema. nurse first digitally checked to see if pt was impacted but no stool was felt. enema was administered. pt has not had a BM this shift but says she is passing a lot of gas. she also drank prune juice at bedtime. will continue to monitor.
[2016-05-20 05:38] VITALS: BP 145/80; PULSE 78; RESP 17; O2SAT 97
[2016-05-20 06:21] LABS: BASOPHILS % (AUTO) 0.7 % (0-3); MONOCYTES % (AUTO) 10.1 % (4-12); Mean Corpuscular Hemoglobin 28.9 pg (27.0-35.0); Mean Corpuscular Volume 87.8 fL (81-100); Platelet Count 328 bil/L (150-400)
[2016-05-20 06:32] LABS: Magnesium 1.8 mg/dL (1.6-2.6); Phosphorus 5.5 mg/dL (2.5-4.9)
[2016-05-20] MEDS ORDERED: Vancomycin Serum Trough XX ONE (08:00)
[2016-05-20] MEDS: PAROXETINE 25 MG PO SCH (08:30)
[2016-05-20] MEDS: BusPIRone 15 mg Dividose Tablet PO SCH (08:41)
[2016-05-20] MEDS: Polyethylene Glycol (PEG) 17 Gm Powder PO PRN (08:42)
[2016-05-20 08:43] VITALS: BP 146/92; PULSE 87; RESP 16; O2SAT 100
--- NOTE | 2016-05-20 09:07 | PCM.PNSURG ---
Subjective Date of Service: May 20, 2016 Visit Information: Reason for Visit Wound Infection Surgery/Surgery Date I&D ABSCESS 05/17 Post-Op Day #3 Date of Admission: May 17, 2016 at 05:01 Hospital Day # Subjective: roll on worker arranging a place for the patient to stay. The patient agrees to return to the wound care center daily. Denies fevers. Comfortable. Postop General: No Complaints Pain Management: PO Postop Activity: Ambulating Independently Objective Vital Sign- Last 8 Hours Date Time Temp Pulse Resp B/P Pulse Ox O2 Delivery O2 Flow Rate FiO2 05/20/16 08:43 36.7 87 16 146/92 100 Room Air 05/20/16 05:38 36.6 78 17 145/80 97 Room Air Intake and Output- Last 8 Hour 05/20/16 Cumulative From/Thru 07:00 05/17/16 05:15 - 05/20/16 05:37 Intake Total 1800 ml 9475 ml Output Total 2600 ml 5800 ml Balance -800 ml 3675 ml Intake Oral 1800 ml 5748 ml IV Total 3727 ml Output Urine Total 2600 ml 5800 ml # Voids 3 # Bowel Movements 0 0 General: Alert, Cooperative, No Acute Distress SURGICAL WOUND : Wound Location/Description Pilonidal excision site is examined: Expected tenderness to palpation, no surrounding erythema, no induration. Neuro: Normal Speech Catheters: None Result Diagram: 05/20/1651405/20/16514 Assessment & Plan Impression Primary diagnoses: 1. Wound infection at the pilonidal excision site. POD #3 with normalized WBC, stable for discharge with daily wound care at the wound care center. 2. Homelessness Other chronic conditions: 1. History of glaucoma 2. Migraine headaches 3. Hepatitis C 4. GERD 5. History of diverticulitis 6. History of MRSA 7. History of pneumonia 8. Hidradenitis-- left axilla, left medial buttocks. 9. History of kidney stones 10. Bipolar disorder 11. History of depression 12. Daily cigarette smoker 13. Heroin use Problems: Plan Surgically stable for discharge as per the medicine service with daily wound care follow-up at the wound care center. Pain Management: Hydrocodone Resuscitation Status: CPR: Attempt Resuscitation Lucian Royal PA-C May 20, 2016 09:07
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
[2016-05-20] MEDS ORDERED: MedroxyPROGESTERone 150 mg/mL Inj IM SCH (12:55)
[2016-05-20] MEDS: Ondansetron 2 mg/mL 2 mL Inj IVPUSH PRN ×2 (13:09→18:31)
[2016-05-20 13:19] VITALS: BP 108/69; PULSE 77; RESP 14; O2SAT 98
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
--- NOTE | 2016-05-20 14:11 | NUR ---
Wound Care Patient seen for evaluation of surgical wound to left gluteal cleft. Patient s/p removal of pilonidal cyst with resulting abscess. Now status post repeat I&D on 05/17/16. Patient reports pain improving somewhat. Removed packing. Cleansed areas with NS. Open area measures 4.4cmL x 1.3cmW x 1.5cmD. Wound packed with saline moist 4x4. Covered with sacral mepilex. Patient reports she should DC from hospital today, although DC location is uncertain due to patient is homeless. Has appointment at outpatient wound clinic for follow up at 9am on 05/21/16.
--- NOTE | 2016-05-20 15:06 | CONS ---
[address] [address] CONSULTATION REPORT PATIENT: POPPY BONILLA : 1975 MR#: [id number] ADMIT: 05/17/2016 JOB ID: [id number] DATE OF SERVICE: REASON FOR CONSULTATION: Bartholin cyst. HISTORY OF PRESENTING ILLNESS: This is a 40-year-old, 17, para 3-1-13-3, history of stillborn at term. The patient was admitted secondary to infection of surgical site, pilonidal sinuses excision, status post revision and drainage two days ago. Patient noticed a lump in the vagina that she feels is getting bigger and more painful. Denies fever or chills. Denies any discharge. The patient reports history of gluteal abscess that was drained. PAST CHIEF SERVICE DISPATCHER HISTORY: Last menstrual period unknown. Patient on Depo-Provera injection for control. [facility] at [facility]. History of abnormal Pap smear and LEEP in 1997. Since then, patient has been getting Pap smears every three months at [facility]. PAST OBSTETRIC HISTORY: History of four vaginal deliveries. All were term deliveries, except the 1st delivery was three months premature. History of stillborn at term. Youngest child is 13 years old. History of recurrent miscarriages per patient history. PAST MEDICAL HISTORY: Anxiety, agoraphobia, drug abuse, GERD. Recurrent stones in salivary glands, gallbladder and kidney. Cholecystitis/diverticulitis. History of mental illness and history of suicidal attempt several months ago. PAST SURGICAL HISTORY: History of eye surgery. Cholecystectomy, laparoscopic. Colectomy secondary to the diverticulitis. History of pilonidal sinuses excision with revision. MEDICATIONS: 1. Prazosin. 2. Buspirone. 3. Clonazepam. 4. Leona. 5. Paroxetine. 6. Seroquel. 7. Buprenorphine-naloxone. 8. Piroxicam. 9. Asthma inhaler. ALLERGIES: 1. PENICILLIN. 2. CODEINE. 3. IODINE. 4. MICONAZOLE. 5. TRAZODONE. PHYSICAL EXAMINATION: Alert. Oriented to time, place, and person. Vital signs: Temperature 36.7, pulse 87, respiratory rate 16, blood pressure 146/92. Pulse oximetry 100% on room air. Pelvic exam: External genitalia within normal limits. Urethra normal. Left labia majora with a palpable 1 x 1 cm cystic structure at 3 o'clock position. Possible Bartholin cyst. Mildly tender to palpation. Smooth surface. ASSESSMENT: This is a 11-[id number], 17, para 3,-1-13, 3, with left labial cyst, possible Bartholin cyst. No signs of infection. PLAN OF CARE: discussed with the patient Sitz baths and massage. If the cyst gets larger or persists, then will perform Word catheter insertion and will biopsy the bed of the cyst. Patient scheduled for followup on June 06, 2016, at 10:30 a.m., with Dr. Urrutia. [facility]ITAL[facility]
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
--- NOTE | 2016-05-20 19:40 | NUR ---
ACTIVITY Oxicodone 10 mg PO has been helpful for pain control. Patient complained of nausea. Zofran IV administered, which was effective. No emesis noted. Denies SOB. Patient has been ambulating independently. Gait is steady. Mepilex foam reinforced. It is CDI at this time. Placement continues.
[2016-05-20 20:34] VITALS: BP 135/88; PULSE 91; RESP 18; O2SAT 100
[2016-05-20] MEDS: Lactulose 20 Gm/30 mL 30 mL Syrup PO SCH (22:16)
[2016-05-21] MEDS: Lactulose 20 Gm/30 mL 30 mL Syrup PO SCH ×3 (01:55→11:56)
--- NOTE | 2016-05-21 04:06 | NUR ---
constipation/activity pt still complaining of constipation and nausea. she states she thinks the nausea is from the constipation. she was given one dose of lactulose. however when it was time for her second dose pt refused to take it because she was sleeping. pt is a heavy sleeper, she will wake up to touch but quickly falls back asleep. she is also unsteady when she first wakes up and tries to walk to the bathroom. pt states sometimes she gets dizzy if she tries to stand upon first waking up. pt has been asked to call before getting up to the bathroom. care continues.
[2016-05-21 05:55] VITALS: BP 135/87; PULSE 82; RESP 16; O2SAT 97
[2016-05-21] MEDS: BusPIRone 15 mg Dividose Tablet PO SCH (08:03)
[2016-05-21 08:10] LABS: Mean Corpuscular Hemoglobin 28.7 pg (27.0-35.0); Mean Corpuscular Volume 86.3 fL (81-100)
[2016-05-21] MEDS: PAROXETINE 25 MG PO SCH (08:30)
[2016-05-21] MEDS ORDERED: PEG/Electrolytes 4,000 mL Solution PO ONE (09:15)
--- NOTE | 2016-05-21 11:22 | NUR ---
Scheduled hospital follow up appointment at [facility] May 23 check in at 850AM for 910 AM appointment with Updated [facility]
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
[2016-05-21 14:42] VITALS: BP 111/69; PULSE 113; RESP 17; O2SAT 97
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
--- NOTE | 2016-05-21 18:07 | NUR ---
GI Administered lactulose and colyte per MD orders this morning. Patient was able to have large hard BM and one other hard BM. Administered senna to help soften stools. Patient states she feels better now. Pain to buttocks is well controlled with PO oxycodone. independent with ambulation in room and hallway. Care continues.
[2016-05-21 20:30] VITALS: BP 143/95; PULSE 119; RESP 17; O2SAT 99
--- NOTE | 2016-05-22 04:01 | NUR ---
Dressing change/pain Pt took sitz bath and reported decreased pain to labia. Pt is taking 10 mg PO oxycodone and reporting this to be working to control pain as well. Pilonidal wound dressing changed, packed with NS moistened 4x4 gauze, wet to dry gauze and mepilex on top. Pt tolerated dressing change well.
[2016-05-22 05:25] VITALS: BP 118/78; PULSE 99; RESP 17; O2SAT 97
[2016-05-22] MEDS: PAROXETINE 25 MG PO SCH (08:30)
[2016-05-22 08:45] VITALS: BP 133/84; PULSE 117; RESP 16; O2SAT 98
[2016-05-22] MEDS: BusPIRone 15 mg Dividose Tablet PO SCH (10:21)
[2016-05-22] MEDS ORDERED: CEPH500C PO (12:47)
--- NOTE | 2016-05-22 12:55 | PCM.DIMED ---
Discharge Instructions Date of Service May 22, 2016 Dates of Hospitalization May 17, 2016 at 05:01 Discharge Diagnosis Discharge Diagnosis Pilonidal cyst Bartoli in cyst Tobacco abuse Medication Instructions Please follow the medications as prescribed. Please do not continue to take piroxicam or peroxide teen as both of these medications have severe interactions with your lithium. Diet Heart Healthy Activity No restrictions (gradually returned to her normal daily activities) Call your provider Fever or Chills, Shortness of breath, Vomitting, Excessive diarrhea, Weakness ( unilateral) Patient Instructions The support specialist (Dr. Ren) has recommended that you obtained a Depo-Provera shot. [facility]. Please continue to take daily sitz baths as this will help to relieve/heal the Bartholin's cyst in the vaginal area. Follow-up with PCP in: 1 week (please follow-up with your primary care physician in the resident clinic. If an appointment has not been made please call to schedule an appointment within 1 week [phone]) Follow-up in: 1 week (please follow-up in the wound care center daily) Sherrill Garcia DO May 22, 2016 12:55
[2016-05-22] MEDS ORDERED: NICO1PAT6 TOPICAL (12:58)
[2016-05-22] MEDS ORDERED: NICO1PAT39 TD (12:59)
[2016-05-22] MEDS ORDERED: NICO1PAT40 TD (12:59)
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
--- NOTE | 2016-05-22 13:54 | NUR ---
Social Work-discharge: Data:EMR Reviewed. Pt is on day 5 of hospitalization for wound infection per H&P. Pt is medically stable for discharge. Jani from [facility] has set up hotel for pt at [facility] in [facility] [place] and has also provided pt with clothing. SONG set up transport via Medicaid transport for 1430. SONG updated pt at bedside and she is agreeable to plan. SONG provided pt with residency clinic appointment information.SONG also called wound care center and wound care arranged appointment for 1045. Pt updated and agreeable to plan. All updated and agreeable to plan. Assessment:Pt who would go to [facility]. Plan:Pt to discharge to [facility] today via Medicaid taxi at 1430. Pt has wound care appointment tomorrow at 1045 and PCP appointment scheduled. All updated and agreeable to plan. OLEKSANDR Castro Addendum: 05/22/16 at 1424 by WINSTON LOPEZ SS SONG also updated ALONA Graves who states that pt has intake appointment with [facility] on Friday. Ely has updated pt. OLEKSANDR Castro
[2016-05-22] MEDS ORDERED: OXYC5TAB72 PO (14:18)
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
--- NOTE | 2016-05-22 15:48 | NUR ---
Discharge Pt DCing to hotel arranged by social work and an advocate. Dressing changed on buttocks and wound care appointment arranged for tomorrow morning. Pt also has appointment arranged with new PCP with resident clinic. Pt sent home with RX for Roxicodone, antibiotics and nicotine patch. Pt very appreciative of all the coordination by the medical staff and social work for her continued care. Pain is well controlled. All belongings home with pt.
== END 2016-05-22 15:48 | disposition home or self-care (01) | DRG 863 ==
LOC: OSC 05:01
PROVIDERS: ADMIT Family Medicine; ATTEND Family Medicine
PROC: 0Y910ZX Drainage of Left Buttock, Open Approach, Diagnostic (ICD-10-PCS; principal; 2016-05-18)
DX: T81.4XXA Infection following a procedure, initial encounter (principal); L05.01 Pilonidal cyst with abscess; F17.200 Nicotine dependence, unspecified, uncomplicated; N75.0 Cyst of Bartholin's gland; B95.4 Other streptococcus as the cause of diseases classified elsewhere; Y83.8 Other surgical procedures as the cause of abnormal reaction of the patient, or of later complication, without mention of misadventure at the time of the procedure; Z59.0 Homelessness

== ENCOUNTER 2016-05-22 21:07 | Emergency (ER) | payer OTHER ==
[~2016-05-22] VITALS: Ht 170.2 cm; Wt 72.7 kg
[~2016-05-22 21:07] MED LIST changes: +ADV250INH IH; +ALBU8.5H2 INHALATION; +CEPH500C PO; +CLON2TAB PO; +NICO1PAT39 TD; +NICO1PAT40 TD; +NICO1PAT6 TOPICAL; +OXYC5TAB72 PO
[2016-05-22 22:06] VITALS: BP 142/97; PULSE 106; RESP 16; O2SAT 100
--- NOTE | 2016-05-23 01:43 | ED.REPORT ---
HPI-General Illness Date of Service May 23, 2016 ED Provider: John Moore MD This is a 40 year old female with a history of hydradenitis suppurativa, bipolar disorder, MRSA, sepsis, morbid obesity, and endocarditis presenting to the emergency department due to post-operative pain after surgery earlier today for management of hydradenitis suppurativa. Patient denies fever, chills, nausea , vomiting, abdominal pain, bowel, or bladder changes at this time. Nursing Notes Stated Complaint: NEEDS PAIN MEDS POST SURGERY, UNABLE TO FILL RX Chief Complaint: General Complaint Nursing Notes Reviewed: Yes Allergies: Coded Allergies: Penicillins (Verified Allergy, Severe, Anaphylaxis, 05/22/16) codeine (Verified Allergy, Severe, Rash, 05/22/16) 05/06/14 -PATIENT RECEIVED DILAUDID X MANY DOSES iodine (Verified Allergy, Unknown, 05/22/16) miconazole (Verified Allergy, Unknown, Hives, 05/22/16) trazodone (Verified Allergy, Unknown, 05/22/16) Scheduled Buprenorphine/Naloxone 8-2 mg (Buprenorphine/Naloxone 8-2 mg) 1 Each Tab.subl 2 TAB PO QAM Buprenorphine/Naloxone 8-2 mg (Buprenorphine/Naloxone 8-2 mg) 1 Each Tab.subl 1 TABLET SL QPM Buspirone (Buspirone) 10 Mg Tablet 10 MG PO DAILY Cephalexin (Cephalexin) 500 Mg Capsule 500 MG PO QID Fluticasone/Salmeterol (Advair 250-50 Diskus) 60 Puff/Inh Disk 1 PUFF IH BID [place] Carbonate ([place] Carbonate) 150 Mg Capsule 300 MG PO TID Nicotine (Nicoderm Cq 14 mg/24 hr) 1 Each Patch.td24 1 EACH TD DAILY Nicotine (Nicoderm Cq 7 mg/24 hr) 1 Each Patch.td24 1 EACH TD DAILY Nicotine 21 mg/24 hr Patch (Nicotine 21 mg/24 hr Patch) 1 Each Patch.td24 1 PATCH TOPICAL DAILY Phenazopyridine (Phenazopyridine) 200 Mg Tablet 200 MG PO q3days Prazosin (Prazosin) 1 Mg Capsule 1 MG PO HS Quetiapine Fumarate (Seroquel) 300 Mg Tablet 300 MG PO HS Scheduled PRN Albuterol HFA (Proair HFA) 8.5 Gm Hfa.aer.ad 2 PUFFS INHALATION BID PRN PRN For Shortness of Breath Clonazepam (Klonopin) 2 Mg Tablet 2 MG PO BID PRN PRN For Anxiety Tramadol (Tramadol) 50 Mg Tablet 50 MG PO Q4H PRN PRN For Pain oxyCODONE (oxyCODONE) 5 Mg Tablet 10 MG PO every 4 hours PRN PRN For Moderate Pain General Time Seen by MD: 01:33 Chief Complaint Other Hx Obtained From: Patient Arrived By: Walk-in Sudden in Onset?: Yes Onset Occurred: Just prior to arrival Symptom Duration: Since onset Severity: Current: Mild Pertinent Negative: Pt denies other symptoms Recent Healthcare: Recent hospitalization Similar Sx Previous: Yes Past Medical History Past Medical History Notes: [facility] Recent start of suboxone 04/07/2016 When asked when she was going to inform of suboxone use "I forgot" Past Medical History Bipolar disorder. History of MRSA abscesses. Nicotine dependence, active with smoking cigarettes. Morbid obesity. sepsis endocarditis Reports: Depression, Migraines Past Surgical History saliva gland removal Adenoidectomy Reports: Cholecystectomy, Hysterectomy, Tonsillectomy Smoking History Current Every Day Smoker Social History Homeless Alcohol Use: Denies alcohol use Drug Use: In recovery, IV drugs, Meth Ambulatory Status Independent Review of Systems Full Review of Systems Constitutional: Denies: Chills, Fever Respiratory: Denies: Non-productive cough, Shortness of breath GI: Denies: Abdominal pain, Constipation, Diarrhea, Nausea, Vomiting Musculoskeletal: Reports: Extremity pain Complete sys rev & neg: except as marked. Physical Exam Vital Signs Vital Signs Date Time Temp Pulse Resp B/P Pulse Ox O2 Delivery O2 Flow Rate FiO2 05/23/16 02:24 95 14 148/85 96 Room Air 05/22/16 22:06 36.1 106 16 142/97 100 Room Air Initial VS: Reviewed, Vital signs abnormal Head / Eyes: Atraumatic, Normocephalic, PERRL ENT: Mucous membranes moist, Conjunctiva normal, No scleral icterus Neck: Supple, Non-tender, Full range of motion Respiratory: Breath sounds normal, Clear to auscultation, No respiratory distress Cardiovascular: Regular rate & rhythm, Heart sounds normal, Intact distal pulses Abdomen / GI: Soft, Non-tender, No guarding, No rebound, No distention Extremities: Vascular intact, Neuro intact, No swelling, No tenderness Neurologic: Alert, Oriented, Nonfocal Psychiatric: Mood/affect normal, Behavior normal, Normal thought content Alertness: Positive: Sleeping but arousable Re-Eval/Medical Decision Med Decision/Clinical Course 40-year-old female who had just spent a couple of days in the hospital for treatment of hidradenitis suppurativa. She was discharged home with a prescription for 20 tablets of 5 mg oxycodone. She was unable to get that filled. Here she was given a prepack of oxycodone/APAP 5/325, #10. She did not desire to keep the remaining prescription which was destroyed. She will follow up with her Suboxone provider in 3 days. Counseled Regarding: Diagnosis, Lab results, Need for follow-up, When/why to return to ED Discharge & Departure Primary Impression: Postoperative pain Disposition: Home Discharge Condition All VS Reviewed: Yes Condition: Stable Additional Instructions: I have given you a prescription for oxycodone/acetaminophen 1-2 pills every 4 hours as needed for pain, #10. Talk to your Suboxone provider about how to coordinate your transition back to Suboxone. Referrals: NOPCP (PCP) Scribe Attestation Portions of this note were transcribed by Jeuss Alberto Fabian. I, Dr. Moore personally performed the history, physical exam and medical decision-making; I reviewed and confirmed the accuracy of the information in the transcribed note. Signed by: sherlyn Sapp. 05/22/2016, 06:00. John Moore MD May 23, 2016 01:43 JESUS ALBERTO FABIAN May 23, 2016 01:50
[2016-05-23] MEDS ORDERED: _oxyCODONE/APAP 5-325 mg Tablet PO PRN (01:50)
[2016-05-23 02:24] VITALS: BP 148/85; PULSE 95; RESP 14; O2SAT 96
== END 2016-05-23 02:26 | disposition home or self-care (01) ==
LOC: SED 21:07
DX: G89.18 Other acute postprocedural pain (principal); L73.2 Hidradenitis suppurativa; F17.200 Nicotine dependence, unspecified, uncomplicated; Z86.14 Personal history of Methicillin resistant Staphylococcus aureus infection; Z86.19 Personal history of other infectious and parasitic diseases; Z59.0 Homelessness; Z88.0 Allergy status to penicillin; Z88.5 Allergy status to narcotic agent; Z88.8 Allergy status to other drugs, medicaments and biological substances

== ENCOUNTER 2016-05-25 08:05 | Emergency (ER) | payer OTHER ==
[~2016-05-25] VITALS: Ht 170.2 cm; Wt 89.5 kg
[~2016-05-25 08:05] MED LIST changes: -PARO25TA17 PO; -PIRO20CA2 PO
[2016-05-25 08:10] VITALS: BP 147/103; PULSE 116; RESP 16; O2SAT 100
--- NOTE | 2016-05-25 08:26 | ED.REPORT ---
HPI-Overdose/Alcohol Toxicity Date of Service May 25, 2016 ED Provider: Andrez Al MD A 40 year old female with a history of hydradenitis suppurativa, IV drug abuse, bipolar disorder, MRSA, sepsis and endocarditis presents to the ED with postoperative pain that began a few weeks ago. Patient had several visits to the ED over the past week for postoperative pain. Patient was recently admitted to the hospital for treatment of hydradenitis suppurativa and was discharged 4 days ago with 20 5 mg of Oxycodone that she has finished. She reports that she would like a prescription for Suboxone to manage her pain. She recently used heroin for the pain during the period inbetween receiving her prescription for Suboxone. Patient also reports abdominal "burning" and vomiting for the past few days. She denies fever or recent meth use. Nursing Notes Stated Complaint: CHANGE PACKING/POSS PRESCRIPTIONS Chief Complaint: Skin Rash/Abscess Nursing Notes Reviewed: Yes Allergies: Coded Allergies: Penicillins (Verified Allergy, Severe, Anaphylaxis, 05/22/16) codeine (Verified Allergy, Severe, Rash, 05/22/16) 05/06/14 -PATIENT RECEIVED DILAUDID X MANY DOSES iodine (Verified Allergy, Unknown, 05/22/16) miconazole (Verified Allergy, Unknown, Hives, 05/22/16) trazodone (Verified Allergy, Unknown, 05/22/16) Scheduled Buprenorphine/Naloxone 8-2 mg (Buprenorphine/Naloxone 8-2 mg) 1 Each Tab.subl 2 TAB PO QAM Buprenorphine/Naloxone 8-2 mg (Buprenorphine/Naloxone 8-2 mg) 1 Each Tab.subl 1 TABLET SL QPM Buspirone (Buspirone) 10 Mg Tablet 10 MG PO DAILY Cephalexin (Cephalexin) 500 Mg Capsule 500 MG PO QID Fluticasone/Salmeterol (Advair 250-50 Diskus) 60 Puff/Inh Disk 1 PUFF IH BID [place] Carbonate ([place] Carbonate) 150 Mg Capsule 300 MG PO TID Nicotine (Nicoderm Cq 14 mg/24 hr) 1 Each Patch.td24 1 EACH TD DAILY Nicotine (Nicoderm Cq 7 mg/24 hr) 1 Each Patch.td24 1 EACH TD DAILY Nicotine 21 mg/24 hr Patch (Nicotine 21 mg/24 hr Patch) 1 Each Patch.td24 1 PATCH TOPICAL DAILY Phenazopyridine (Phenazopyridine) 200 Mg Tablet 200 MG PO q3days Prazosin (Prazosin) 1 Mg Capsule 1 MG PO HS Quetiapine Fumarate (Seroquel) 300 Mg Tablet 300 MG PO HS Scheduled PRN Albuterol HFA (Proair HFA) 8.5 Gm Hfa.aer.ad 2 PUFFS INHALATION BID PRN PRN For Shortness of Breath Clonazepam (Klonopin) 2 Mg Tablet 2 MG PO BID PRN PRN For Anxiety Tramadol (Tramadol) 50 Mg Tablet 50 MG PO Q4H PRN PRN For Pain oxyCODONE (oxyCODONE) 5 Mg Tablet 10 MG PO every 4 hours PRN PRN For Moderate Pain General Time Seen by Provider: 08:28 Chief Complaint Other (Abscess Pain) Hx Obtained From: Patient Arrived By: Walk-in Onset Occurred: 1 week ago Symptom Duration: Since onset Progression Since Onset: Unchanged Location: : Arm left: Pelvis Quality: Painful Severity: Current: Mild Severity: Maximum: Moderate Pertinent Negative: Pt denies other symptoms Recent Healthcare: Recent doctor visit, Recent testing Risk-Overdose/Alcohol Tox )( Suicide Risk Stratification : Substance abuse RF Statements: Risk factors reviewed Past Medical History Past Medical History Notes: [facility] Recent start of suboxone 04/07/2016 Past Medical History Bipolar disorder. History of MRSA abscesses. Nicotine dependence, active with smoking cigarettes. Morbid obesity. sepsis endocarditis Reports: Depression, Migraines Past Surgical History saliva gland removal Adenoidectomy 05/02: Excision of left axillary hidradenitis x2, left medial buttocks hidradenitis x1 and pilonidal cyst. Reports: Cholecystectomy, Hysterectomy, Tonsillectomy Smoking History Current Every Day Smoker Social History Homeless Alcohol Use: Denies alcohol use Drug Use: In recovery, IV drugs, Meth Other Social History: Local resident Ambulatory Status Independent Review of Systems Constitutional: Denies: Chills, Fever GI: Reports: Abdominal pain, Vomiting Musculoskeletal: Reports: Extremity pain (pain to left arm/left buttock ) Complete sys rev & neg: except as marked. Physical Exam Initial Vital Signs Vital Signs (First) Date Time Temp Pulse Resp B/P Pulse Ox O2 Delivery O2 Flow Rate FiO2 05/25/16 08:10 36.5 116 16 147/103 100 Room Air Initial VS: Reviewed Head / Eyes: Atraumatic, Normocephalic, PERRL Neck: Supple, Non-tender, Full range of motion Extremities: Vascular intact, Neuro intact, No swelling, No tenderness General/Constitutional: Awake, Alert, No acute distress Respiratory / Chest: Atraumatic, Breath sounds NL, Breath sounds = bilat, No respiratory distress Cardiovascular: Regular rhythm, Heart sounds NL Heart Rate / Rhythm: Positive: Tachycardia Abdomen: Atraumatic, Soft Neurologic: Oriented X3, No motor deficits, No sensory deficits Psychiatric: Affect NL, Mood NL Skin: Atraumatic, Warm, Dry Rash / Lesion Location: Positive: Buttocks (Open wound to the apex of the dee cleft; healing by secondary intent) Abscess Notes: ABSCESS: Open wound left adjacent to labia majora healing by secondary intent Left anacubical flebitous Re-Eval/Medical Decision Re-Evaluation/Progress : Time of Eval: 08:47 Patient Status: Condition improved Re-Evaluation/Progress Note: Patient is informed of the plan to discharge with Suboxone and follow up with Dr. Chen in the next week. Consultation : Referral / Consult Name: Sheyla Chen MD Call Returned at: 08:39 Developer Relations Manager: Agrees with eval, Agrees with plan Note: Dr. Chen: (Primary provider of Suboxone) authorizes Suboxone through Friday Counseled Regarding: Diagnosis, Lab results, Need for follow-up, When/why to return to ED Discharge & Departure Impression: Primary Impression: Postoperative pain Additional Impression: Opiate use Disposition: Home Discharge Condition All VS Reviewed: Yes Condition: Stable Additional Instructions: The wounds seem to be healing well. You received buprenorphine 16 mg sublingually here in the emergency department this morning at [address] Chen's authorization, I called in 4 days' supply of buprenorphine 60 mg the morning and 8 mg in the evening to last through Friday. #12 pills. This was sent to [facility] by phone. Referrals: NOPCP (PCP) Scribe Attestation Portions of this note were transcribed by Koko Rodriguez. I, Dr. Al personally performed the history, physical exam and medical decision-making; I reviewed and confirmed the accuracy of the information in the transcribed note. Signed by: David Crane, 05/25/16 Andrez Westbrook MD May 25, 2016 08:26 KOKO RODRIGUEZ May 25, 2016 08:33
[2016-05-25] MEDS ORDERED: Buprenorphine 2 mg SL Tablet SL ONE (08:35)
[2016-05-25 09:13] VITALS: BP 147/103; PULSE 116; RESP 16; O2SAT 100
== END 2016-05-25 09:14 | disposition home or self-care (01) ==
LOC: SED 08:05
DX: G89.18 Other acute postprocedural pain (principal); F11.10 Opioid abuse, uncomplicated; F17.200 Nicotine dependence, unspecified, uncomplicated; Z59.0 Homelessness; Z88.0 Allergy status to penicillin; Z88.5 Allergy status to narcotic agent; Z88.8 Allergy status to other drugs, medicaments and biological substances; Z86.14 Personal history of Methicillin resistant Staphylococcus aureus infection; Z86.19 Personal history of other infectious and parasitic diseases

== ENCOUNTER 2016-06-04 21:03 | Inpatient (IN) | payer OTHER ==
[~2016-06-04] VITALS: Ht 162.6 cm; Wt 88.0 kg
[2016-06-04 21:15] VITALS: BP 136/84; PULSE 88; RESP 18; O2SAT 100
--- NOTE | 2016-06-04 21:53 | DRSVH ---
PROCEDURE: X-RAY CHEST, TWO VIEWS ([id number]) INDICATIONS: cough, reported fever TECHNIQUE: 2 views of the chest were acquired. COMPARISON: [facility], CR, XR CHEST 2VW, 02/13/2016, 11:28. FINDINGS: Surgical changes and devices: None. Lungs and pleura: No pleural effusions or pneumothorax. Lungs are clear. Mediastinum: Mediastinal contours are normal. Heart size is normal. Bones and chest wall: No suspicious bony abnormalities. Soft tissues appear unremarkable. IMPRESSION: No acute process. Dictated by: Shona Hardin M.D. on 06/04/2016 at 21:52 Approved by: Shona Hardin M.D. on 06/04/2016 at 21:52
--- NOTE | 2016-06-04 22:21 | ED.REPORT ---
HPI-General Illness Date of Service Jun 04, 2016 ED Provider: Joshua Caal MD Patient is a homeless 40 year old female with a history of bipolar disorder, hydradenitis suppurativa, MRSA with multiple abscesses, endocarditis, IV heroin abuse, and recent pilonidal cyst I&D who presents to the ED complaining of a fever and malaise of known onset. She reports a fever of 103F prior to arrival, but she is afebrile on arrival to the ED. Patient reports associated chills, myalgias, dizziness, cough, and pleuritic chest pain. She reports "bright yellow " diarrhea for the past 2-3 days. The patient states that the her pilonidal cyst site has opened again and that her "tailbone is sticking out". Patient has previously had the pilonidal cyst drained 2x, most recently drained on 2016. She underwent excision of left axillary hidradenitis x2, left medial buttocks hidradenitis x1 and her pilonidal cyst on 05/02, but the patient did not perform good wound care. The patient states that she now has "bumps all over my body with green pus". Patient admits to some numbness on her left arm and right hip, with an area on her upper left arm that she states is "bulging out". In addition the patient states that today she was walking around when she suddenly forgot where she was going. She was finally found by Dr. Chen, her Suboxone provider, who told her to present to the ED. Patient states that she was using her Suboxone following discharge from the hospital but she relapsed 2 days ago, using IV heroin. Nursing Notes Stated Complaint: SICK Chief Complaint: General Complaint Nursing Notes Reviewed: Yes Allergies: Coded Allergies: Penicillins (Verified Allergy, Severe, Anaphylaxis, 05/22/16) codeine (Verified Allergy, Severe, Rash, 05/22/16) 05/06/14 -PATIENT RECEIVED DILAUDID X MANY DOSES iodine (Verified Allergy, Unknown, 05/22/16) miconazole (Verified Allergy, Unknown, Hives, 05/22/16) trazodone (Verified Allergy, Unknown, 05/22/16) Scheduled Buprenorphine/Naloxone 8-2 mg (Buprenorphine/Naloxone 8-2 mg) 1 Each Tab.subl 2 TAB PO QAM Buprenorphine/Naloxone 8-2 mg (Buprenorphine/Naloxone 8-2 mg) 1 Each Tab.subl 1 TABLET SL QPM Buspirone (Buspirone) 10 Mg Tablet 10 MG PO DAILY Cephalexin (Cephalexin) 500 Mg Capsule 500 MG PO QID Fluticasone/Salmeterol (Advair 250-50 Diskus) 60 Puff/Inh Disk 1 PUFF IH BID [place] Carbonate ([place] Carbonate) 150 Mg Capsule 300 MG PO TID Nicotine (Nicoderm Cq 14 mg/24 hr) 1 Each Patch.td24 1 EACH TD DAILY Nicotine (Nicoderm Cq 7 mg/24 hr) 1 Each Patch.td24 1 EACH TD DAILY Nicotine 21 mg/24 hr Patch (Nicotine 21 mg/24 hr Patch) 1 Each Patch.td24 1 PATCH TOPICAL DAILY Phenazopyridine (Phenazopyridine) 200 Mg Tablet 200 MG PO q3days Prazosin (Prazosin) 1 Mg Capsule 1 MG PO HS Quetiapine Fumarate (Seroquel) 300 Mg Tablet 300 MG PO HS Scheduled PRN Albuterol HFA (Proair HFA) 8.5 Gm Hfa.aer.ad 2 PUFFS INHALATION BID PRN PRN For Shortness of Breath Clonazepam (Klonopin) 2 Mg Tablet 2 MG PO BID PRN PRN For Anxiety Tramadol (Tramadol) 50 Mg Tablet 50 MG PO Q4H PRN PRN For Pain oxyCODONE (oxyCODONE) 5 Mg Tablet 10 MG PO every 4 hours PRN PRN For Moderate Pain General Time Seen by MD: 22:20 Chief Complaint Fever, Not feeling well Hx Obtained From: Patient Arrived By: Walk-in Onset Occurred: Onset unknown Symptom Duration: Duration unknown Quality: Painful Severity: Current: Moderate Severity: Maximum: Moderate Recent Healthcare: Recent doctor visit, Recent hospitalization, Previous surgery Similar Sx Previous: Yes Past Medical History Past Medical History Notes: Located Within [facility] Recent start of suboxone 04/07/2016 Past Medical History Bipolar disorder. History of MRSA abscesses. Nicotine dependence, active with smoking cigarettes. Morbid obesity. sepsis endocarditis hydradenitis suppurativa Reports: Depression, Migraines Past Surgical History saliva gland removal Adenoidectomy 05/02: Excision of left axillary hidradenitis x2, left medial buttocks hidradenitis x1 and pilonidal cyst. Subsequent I&D on 05/18/2016. Reports: Cholecystectomy, Hysterectomy, Tonsillectomy Smoking History Current Every Day Smoker Social History Homeless Alcohol Use: Denies alcohol use Drug Use: In recovery, IV drugs, Meth Other Social History: Poor social support, Local resident, Homeless Ambulatory Status Independent Review of Systems Full Review of Systems Constitutional: Reports: Chills, Fever, Malaise Respiratory: Reports: Non-productive cough, Pleuritic pain GI: Reports: Diarrhea Musculoskeletal: Reports: Myalgia Skin: Reports Rash (multiple abscesses) Neurologic: Reports: Confusion, Dizziness, Numbness Complete sys rev & neg: except as marked. Physical Exam Vital Signs Vital Signs Date Time Temp Pulse Resp B/P Pulse Ox O2 Delivery O2 Flow Rate FiO2 06/05/16 00:20 101 24 129/65 98 Room Air 06/04/16 21:15 36.2 88 18 136/84 100 Room Air Initial VS: Reviewed General/Constitutional: Awake, Alert, No acute distress, Well hydrated Behavior: Positive: Tearful Head / Eyes: Normocephalic, PERRL, Conjunctiva NL Conjunctiva / Sclera: Negative: Subconj hemorrhage left, Subconj hemorrhage right ENT: Airway patent, Mucous membranes moist Respiratory / Chest: Breath sounds NL, Breath sounds = bilat, No respiratory distress, No rales, No rhonchi, No wheezing Cardiovascular: Heart rate NL, Regular rhythm, Heart sounds NL, No murmurs Abdomen: Soft, Non-tender, No guarding, No rebound Organomegaly / Mass / Hernia: Negative: Splenomegaly Upper Extremities Upper Extremity / MS: Full range of motion, No deformity Tender cord along the medical surface of the arm left arm, at the brachial vein. Lower Extremity / Pelvis / MS: Full range of motion, No deformity Skin: Warm, Dry Rash / Lesion Notes: Pilonidal cyst, deep wound with moderate purulent discharge. No surrounding redness. Other buttock wound is healing well, with mild purulent discharge. No surrounding redness. Abscess at the haircline, scabbed off. Neurologic: Oriented X3, Speech NL, No motor deficits, CN II - XII intact Subjectively numb on left flexor forearm and subjectively numb lateral right thigh and knee. Interpretation & Diagnostics Lab Results Interpretation Result Diagram: 06/05/16 0600 06/04/16 2303 Test 06/04/16 23:00 06/04/16 23:03 Urine Color Yellow (YELLOW) Urine Appearance Cloudy (CLEAR,HAZY) Urine pH 5.5 (5.0-8.0) Urine Specific [place] 1.030 (1.003-1.035) Urine Protein 30mg/dL (NEG,TRACE) Urine Glucose (UA) Negativemg/dL (NEGATIVE) Urine Ketones Negativemg/dL (NEGATIVE) Urine Occult Blood Small (NEGATIVE) Urine Nitrite Negative (NEGATIVE) Urine Bilirubin Negative (NEGATIVE) Urine Urobilinogen Normalmg/dL (NORMAL) Urine Leukocyte Esterase Negative (NEGATIVE) Urine RBC 0-2/hpf (0-2) Urine WBC 0-5/hpf (0-5) Urine Epithelial Cells Many/hpf (NONE-MOD) Urine Crystals None seen (NONE SEEN) Urine Bacteria Many/hpf (NONE-FEW) Urine Hyaline Casts None/lpf (NONE) Urine Granular Casts None seen (NONE SEEN) Urine Waxy Casts None seen (NONE SEEN) Urine Red Blood Cell Casts None seen (NONE SEEN) Urine White Blood Cell Casts None seen (NONE SEEN) Urine Mucus None seen (None Seen) Urine Trichomonas None seen (NONE SEEN) Urine Yeast None (NONE SEEN) Urinalysis Comment None Urine Culture Reflexed Indicated Erythrocyte Sedimentation Rate 15mm/hr (0-32) Sodium Level 141mEq/L (134-144) Potassium Level 4.0mEq/L (3.5-5.2) Chloride Level 101mEq/L (97-108) Carbon Dioxide Level 25mmol/L (18-29) Blood Urea Nitrogen 16mg/dL (6-24) Creatinine 0.60mg/dL (0.57-1.00) Estimat Glomerular Filtration Rate 159mL/min (>59) Glucose Level 91mg/dL (60-99) Calcium Level 9.1mg/dL (8.5-10.1) Phosphorus Level 4.3mg/dL (2.5-4.9) Magnesium Level 1.9mg/dL (1.6-2.6) Total Bilirubin 0.2mg/dL (0.0-1.2) Aspartate Amino Transf (AST/SGOT) 21U/L (0-50) Alanine Aminotransferase (ALT/SGPT) 20U/L (0-32) Alkaline Phosphatase 88U/L (25-150) Troponin T 0.010ug/L (0.0-0.011) Pro-B-Type Natriuretic Peptide 40.99pg/mL (0-130) Total Protein 7.2g/dL (6.4-8.4) Albumin 3.9g/dL (3.4-5.0) Procalcitonin 0.04ng/mL (0.00-0.08) Alcohols 10mg/dL (0-10) ECG Interpretation Time: 22:30 Interpreted by: ED physician Normal ECG Interpretation: Normal ECG w/ rate of... (82), No acute ischemic changes, No change from prior ECGs X-Ray Chest Interpretation Chest Xray Interpretation: IMPRESSION: No acute process. Dictated by: Shona Hardin M.D. on 06/04/2016 at 21:52 Approved by: Shona Hardin M.D. on 06/04/2016 at 21:52 Interpretation / Wet Read by: Interpret - Radiologist Chest Xray Interpretation: Impression: Central line placement good. View: Portable Interpretation / Wet Read by: Wet read ED physician CT Head Interpretation CONCLUSION: No acute intracranial abnormality. Radiologist: Emilee Mcconnell MD 06/05/2016 - 1:06:01 AM PDT Study: Head CT no contrast Interpretation / Wet Read by: Interpret - Radiologist Procedures Central Line Placement Time: 00:54 Procedure Performed by: ED physician Consent / Setup / Site Prep: Informed consent provided, Consent from patient , Time-out performed, Needle aspirate performed, Oxygen administered, Pulse oximeter applied, supervisor packing room applied, Hand hygiene observed, Standard surgical scrub, Max barrier precaution, Sterile drapes applied, Position supine Skin Preparation Agent: Hibiclens - Chlorhexidine (3x) Local Anesthesia: Lidocaine 1% Procedural Sedation/Analgesia: Sedation: Ketamine (300mg) Side / Location / Ultrasound: Internal jugular right, Subclavian right ( Attempted, hit the artery. Needle withdrawan and did not dilate vessel. Changed to Right internal jugular. ), Ultrasound assisted (good visualization) Catheter / Lumen / Technique: Catheter size (7 Fr, 20cm PowerPort), Triple lumen, Good blood return, Secured w catheter device Central Line Tip Location: Other (4cm in) Post-Procedure / Complications: Dressing placed, CXR neg for pneumothorax, Condition improved, Tolerated procedure well, Patient stable, Not stable post- procedure Proced Mod Sedation/Analgesia Time: 00:52 Procedure Performed by: ED physician Sedation Time: > 60 min Consent / Setup: Informed consent provided, Consent from patient, Time-out performed, Hand hygiene observed, Stand sterile technique, Position supine Indication: Other (central line placement) Preparation: supervisor packing room applied, Pulse oximeter applied, Constant attendance, IV access established, Eval last meal time, Supplemental oxygen, Procedure explained, Suction available, End tidal CO2 mon applied VS Prior to Procedure: All vital signs normal Mallampati: Class & Anatomy: 1 tonsils/uvula/s palate Airway Exam: Normal facial anatomy, Normal neck anatomy CVS/Resp Exam: Normal breath sounds, Normal heart sounds Neuro Exam: Alert, No acute distress, Responsive Sedation: Sedation: Ketamine (300mg) ASA Classification: 1 normal healthy patient Response During Procedure: Handled secretions adeq, Maintained airway well, Oxygenation stable, Sedation appropriate, Vital signs stable Complications During/After: None Reversal: None required Mental Status After Procedure: Alert, Oriented X3 Post-Procedure: Alert prior to discharge, Ambulatory with assist, Pt rtn pre- proc baseline, Vital signs normal Attestation: I performed procedure, I performed sedation Re-Eval/Medical Decision Med Decision/Clinical Course 40-year-old female presents with concerns about fever, tachycardia, generalized weakness, and multiple abscesses. She has previously had endocarditis and is mostly concerned about that. However, despite her multiple abscesses, which are likely the result of her attempts at IV drug use, or no splinter hemorrhages, no flame hemorrhages, no [place] nodes, and no other indications of embolic disease or SBE. Her white count is normal. Her sedimentation rate is not elevated. Blood cultures 4 sets are pending. An echo could be considered. Would not start antibiotics at this point, pending multiple blood cultures. She will require some further evaluation with her surgical wound. IV access was problematic and the central line was placed. Source of Hx: Old records Time of Eval: 00:32 Patient Status: Condition improved Re-Evaluation/Progress Note: Rechecked patient. Have been unable to establsh IV access. Will place a central line. Patient does not believe that she can stay still during the procedure. She will be given Ketamine. Patient will be admitted to the hospital for further care. All questions were addressed. Time of Eval: 00:52 Re-Evaluation/Progress Note: Central line placed. Time of Eval: 01:48 Re-Evaluation/Progress Note: Rechecked the patient. She is opening her eyes to name. Consultation : Referral / Consult Name: Kain Kline MD Consulted With: Hospitalist Call Returned at: 00:37 [employer]: Will see patient, Agrees with eval, Agrees with plan, Accepts admit Note: Spoke with Dr. Kline hospitalist, who agrees to accept admit. Counseled Regarding: Diagnosis, Lab results, Need for admission Discharge & Departure Primary Impression: Abscess of multiple sites Additional Impressions: Fever Fever type: unspecified Qualified Code: R50.9 - Fever, unspecified IVDA (intravenous drug abuse) complicating Hx of pilonidal cyst History of MRSA infection Disposition: ADMITTED TO HOSPITAL Discharge Condition All VS Reviewed: Yes Condition: Stable Scribe Attestation Portions of this note were transcribed by Nanda Hudson. Dr. Ten Castillo personally performed the history, physical exam and medical decision-making; I reviewed and confirmed the accuracy of the information in the transcribed note. Signed by: David Sanches, 06/05/2016 0149 Joshua Caal MD Jun 04, 2016 22:21 Nanda Hudson Jun 04, 2016 22:28 hospital for further care. All questions were addressed. Time of Eval: 00:52 Re-Evaluation/Progress Note: Central line placed. Time of Eval: 01:48 Re-Evaluation/Progress Note: Rechecked the patient. She is opening her eyes to name. Consultation : Referral / Consult Name: Kain Kline MD Consulted With: Hospitalist Call Returned at: 00:37 [employer]: Will see patient, Agrees with eval, Agrees with plan, Accepts admit Note: Spoke with sharyn Conley, who agrees to accept admit. Counseled Regarding: Diagnosis, Lab results, Need for admission Discharge & Departure Primary Impression: Abscess of multiple sites Additional Impressions: Fever Fever type: unspecified Qualified Code: R50.9 - Fever, unspecified IVDA (intravenous drug abuse) complicating Hx of pilonidal cyst Disposition: ADMITTED TO HOSPITAL Discharge Condition All VS Reviewed: Yes Condition: Stable Scribe Attestation Portions of this note were transcribed by Nanda Hudson. Dr. Ten Castillo personally performed the history, physical exam and medical decision-making; I reviewed and confirmed the accuracy of the information in the transcribed note. Signed by: David Sanches, 06/05/2016 0149 Joshua Caal MD Jun 04, 2016 22:21 Nanda Hudson Jun 04, 2016 22:28
[2016-06-04] MEDS ORDERED: 0.9% Sodium Chloride 1,000 ML IV ONE (22:31)
[2016-06-04] MEDS ORDERED: Buprenorphine 2 mg SL Tablet SL ONE (22:35)
[2016-06-04 23:14] LABS: BASOPHILS % (AUTO) 0.9 % (0-3); EOSINOPHILS % (AUTO) 6.4 % (0-5); MONOCYTES % (AUTO) 9.7 % (4-12); Mean Corpuscular Volume 88 fL (81-100); NEUTROPHILS % (AUTO) 36.9 % (40-74); Platelet Count 318 bil/L (150-400)
[2016-06-04 23:42] LABS: APPEARANCE,URINE CLOUDY (CLEAR,HAZY); COLOR,URINE YELLOW (YELLOW); OCCULT BLOOD,URINE SMALL (NEGATIVE); PH,URINE 5.5 (5.0-8.0); UROBILINOGEN,URINE NORMAL (NORMAL)
[2016-06-04 23:44] LABS: TROPONIN T 0.01 ug/L (0.0-0.011)
[2016-06-05] VITALS (11 sets, daily range): BP systolic 114–182; BP diastolic 65–106; PULSE 79–148; RESP 13–24; O2SAT 96–100
[2016-06-05 00:15] LABS: Magnesium 1.9 mg/dL (1.6-2.6)
[2016-06-05 00:17] LABS: Phosphorus 4.3 mg/dL (2.5-4.9)
[2016-06-05] MEDS ORDERED: Ketamine 100 mg/mL 5 mL Inj IM ONE (00:30)
[2016-06-05] MEDS ORDERED: Ondansetron 2 mg/mL 2 mL Inj IVPUSH PRN (00:55)
[2016-06-05] MEDS ORDERED: 0.9% Sodium Chloride 1,000 ML IV SCH (00:55)
[2016-06-05] MEDS ORDERED: Alum-Mag Hydrox-Simeth 30 mL Suspension PO PRN (00:55)
[2016-06-05] MEDS ORDERED: Vancomycin Dose per Pharmacist XX ONE (00:55)
[2016-06-05] MEDS ORDERED: Vancomycin Inj 2,000 MG in 0.9% Sodium Chloride 500 ML IV ONE (02:00)
[2016-06-05 02:05] LABS: D-Dimer < 0.50 mg/L FEU (<0.50); INR 0.94 ratio
--- NOTE | 2016-06-05 02:41 | PCM.HPMED ---
Subjective Date of Service Jun 05, 2016 Primary Provider: Admitting Physician: Kain Kline MD Primary Care Physician: Negin Attending Physician: Kain Kline MD Admit Status: From the Emergency Department Chief Complaint: Fever, Myalgias History of Present Illness: Patient is obtunded after receiving Ketamine for placement of central line. Here is the HPI from the ED: "Patient is a homeless 40 year old female with a history of bipolar disorder, hydradenitis suppurativa, MRSA with multiple abscesses, endocarditis, IV heroin abuse, and recent pilonidal cyst I&D who presents to the ED complaining of a fever and malaise of known onset. She reports a fever of 103F prior to arrival, but she is afebrile on arrival to the ED. Patient reports associated chills, myalgias, dizziness, cough, and pleuritic chest pain. She reports "bright yellow " diarrhea for the past 2-3 days. The patient states that the her pilonidal cyst site has opened again and that her "tailbone is sticking out". Patient has previously had the pilonidal cyst drained 2x, most recently drained on 2016. She underwent excision of left axillary hidradenitis x2, left medial buttocks hidradenitis x1 and her pilonidal cyst on 05/02, but the patient did not perform good wound care. The patient states that she now has "bumps all over my body with green pus". Patient admits to some numbness on her left arm and right hip, with an area on her upper left arm that she states is "bulging out". In addition the patient states that today she was walking around when she suddenly forgot where she was going. She was finally found by Dr. Chen, her Suboxone provider, who told her to present to the ED. Patient states that she was using her Suboxone following discharge from the hospital but she relapsed 2 days ago, using IV heroin." Review of Systems: Unable to obtain. Allergies Coded Allergies: Penicillins (Verified Allergy, Severe, Anaphylaxis, 05/22/16) codeine (Verified Allergy, Severe, Rash, 05/22/16) 05/06/14 -PATIENT RECEIVED DILAUDID X MANY DOSES iodine (Verified Allergy, Unknown, 05/22/16) miconazole (Verified Allergy, Unknown, Hives, 05/22/16) trazodone (Verified Allergy, Unknown, 05/22/16) Home Medications Scheduled Buprenorphine/Naloxone 8-2 mg (Buprenorphine/Naloxone 8-2 mg) 1 Each Tab.subl 2 TAB PO QAM Buprenorphine/Naloxone 8-2 mg (Buprenorphine/Naloxone 8-2 mg) 1 Each Tab.subl 1 TABLET SL QPM Buspirone (Buspirone) 10 Mg Tablet 10 MG PO DAILY Cephalexin (Cephalexin) 500 Mg Capsule 500 MG PO QID Fluticasone/Salmeterol (Advair 250-50 Diskus) 60 Puff/Inh Disk 1 PUFF IH BID [place] Carbonate ([place] Carbonate) 150 Mg Capsule 300 MG PO TID Nicotine (Nicoderm Cq 14 mg/24 hr) 1 Each Patch.td24 1 EACH TD DAILY Nicotine (Nicoderm Cq 7 mg/24 hr) 1 Each Patch.td24 1 EACH TD DAILY Nicotine 21 mg/24 hr Patch (Nicotine 21 mg/24 hr Patch) 1 Each Patch.td24 1 PATCH TOPICAL DAILY Phenazopyridine (Phenazopyridine) 200 Mg Tablet 200 MG PO q3days Prazosin (Prazosin) 1 Mg Capsule 1 MG PO HS Quetiapine Fumarate (Seroquel) 300 Mg Tablet 300 MG PO HS Scheduled PRN Albuterol HFA (Proair HFA) 8.5 Gm Hfa.aer.ad 2 PUFFS INHALATION BID PRN PRN For Shortness of Breath Clonazepam (Klonopin) 2 Mg Tablet 2 MG PO BID PRN PRN For Anxiety Tramadol (Tramadol) 50 Mg Tablet 50 MG PO Q4H PRN PRN For Pain oxyCODONE (oxyCODONE) 5 Mg Tablet 10 MG PO every 4 hours PRN PRN For Moderate Pain PMH Bipolar disorder. History of MRSA abscesses. Nicotine dependence, active with smoking cigarettes. Morbid obesity. sepsis endocarditis hydradenitis suppurativa Depression Migraines Surgical History saliva gland removal Adenoidectomy 05/02: Excision of left axillary hidradenitis x2, left medial buttocks hidradenitis x1 and pilonidal cyst. Subsequent I&D on 05/18/2016. Reports: Cholecystectomy, Hysterectomy, Tonsillectomy Family History Unable to obtain. Social History Hx Alcohol Use: No Hx Substance Use: Yes (heroin last used 06/03/16) Hx Tobacco Use: Yes Smoking Status: Current Every Day Smoker Living Arrangement: Homeless Exam Vital Signs Vital Sign - Last Date Time Temp Pulse Resp B/P Pulse Ox O2 Delivery O2 Flow Rate FiO2 06/05/16 01:55 100 13 142/95 100 Room Air 06/04/16 21:15 36.2 Exam Obtunded, somnolent Head: Normocephalic, atraumatic. External ears normal. Eyes: Anicteric sclerae. Mouth: Mouth Normal, Mucous Membranes Moist/[place] Neck: No lymphadenopathy Chest & Lungs: Clear to auscultation bilaterally with no crackles, wheezes, or rhonchi. Cardiovascular: Regular Rate/Rhythm, Normal S1, Normal S2, No Murmurs/Rubs/ Gallops Abdomen: Non-tender, Non-distended, No masses, Normoactive bowel tones, Soft Extremities: No cyanosis/clubbing/edema bilaterally Neurological: Obtunded, not able to obtain From Dr Caal' note in the ED before ketamine administration: Upper Extremity / MS: Full range of motion, No deformity Tender cord along the medical surface of the arm left arm, at the brachial vein. Lower Extremity / Pelvis / MS: Full range of motion, No deformity Skin: Warm, Dry Rash / Lesion Notes: Pilonidal cyst, deep wound with moderate purulent discharge. No surrounding redness. Other buttock wound is healing well, with mild purulent discharge. No surrounding redness. Abscess at the haircline, scabbed off. Neurologic: Oriented X3, Speech NL, No motor deficits, CN II - XII intact Lab and Diagnostics Labs Laboratory Tests Test 06/04/16 23:00 06/04/16 23:03 06/05/16 01:27 Urine Color Yellow (YELLOW) Urine Appearance Cloudy (CLEAR,HAZY) Urine pH 5.5 (5.0-8.0) Urine Specific [place] 1.030 (1.003-1.035) Urine Protein 30mg/dL (NEG,TRACE) Urine Glucose (UA) Negativemg/dL (NEGATIVE) Urine Ketones Negativemg/dL (NEGATIVE) Urine Occult Blood Small (NEGATIVE) Urine Nitrite Negative (NEGATIVE) Urine Bilirubin Negative (NEGATIVE) Urine Urobilinogen Normalmg/dL (NORMAL) Urine Leukocyte Esterase Negative (NEGATIVE) Urine RBC 0-2/hpf (0-2) Urine WBC 0-5/hpf (0-5) Urine Epithelial Cells Many/hpf (NONE-MOD) Urine Crystals None seen (NONE SEEN) Urine Bacteria Many/hpf (NONE-FEW) Urine Hyaline Casts None/lpf (NONE) Urine Granular Casts None seen (NONE SEEN) Urine Waxy Casts None seen (NONE SEEN) Urine Red Blood Cell Casts None seen (NONE SEEN) Urine White Blood Cell Casts None seen (NONE SEEN) Urine Mucus None seen (None Seen) Urine Trichomonas None seen (NONE SEEN) Urine Yeast None (NONE SEEN) Urinalysis Comment None Urine Culture Reflexed Indicated White Blood Count 6.7th/mm3 (3.8-10.1) Red Blood Count 4.51mil/mm3 (3.90-5.20) Hemoglobin 13.1g/dL (12.0-15.6) Hematocrit 39.8% (35.0-46.0) Mean Corpuscular Volume 88fL (81-100) Mean Corpuscular Hemoglobin 29.0pg (27.0-35.0) Mean Corpuscular Hemoglobin Concent 32.9% (32.0-37.0) Red Cell Distribution Width 13.7% (12.3-15.4) Platelet Count 318bil/L (150-400) Neutrophils (%) (Auto) 36.9% (40-74) Lymphocytes (%) (Auto) 46.1% (14-46) Monocytes (%) (Auto) 9.7% (4-12) Eosinophils (%) (Auto) 6.4% (0-5) Basophils (%) (Auto) 0.9% (0-3) Erythrocyte Sedimentation Rate 15mm/hr (0-32) Sodium Level 141mEq/L (134-144) Potassium Level 4.0mEq/L (3.5-5.2) Chloride Level 101mEq/L (97-108) Carbon Dioxide Level 25mmol/L (18-29) Blood Urea Nitrogen 16mg/dL (6-24) Creatinine 0.60mg/dL (0.57-1.00) Estimat Glomerular Filtration Rate 159mL/min (>59) Glucose Level 91mg/dL (60-99) Lactic Acid Level 0.8mmol/L (0.4-2.0) Calcium Level 9.1mg/dL (8.5-10.1) Phosphorus Level 4.3mg/dL (2.5-4.9) Magnesium Level 1.9mg/dL (1.6-2.6) Total Bilirubin 0.2mg/dL (0.0-1.2) Aspartate Amino Transf (AST/SGOT) 21U/L (0-50) Alanine Aminotransferase (ALT/SGPT) 20U/L (0-32) Alkaline Phosphatase 88U/L (25-150) Troponin T 0.010ug/L (0.0-0.011) Pro-B-Type Natriuretic Peptide 40.99pg/mL (0-130) Total Protein 7.2g/dL (6.4-8.4) Albumin 3.9g/dL (3.4-5.0) Procalcitonin 0.04ng/mL (0.00-0.08) Alcohols 10mg/dL (0-10) Prothrombin Time 10.0sec (8.1-12.5) Prothromb Time International Ratio 0.94ratio Activated Partial Thromboplast Time 28.5sec (22.8-33.0) D-Dimer < 0.50mg/L FEU (<0.50) Microbiology 06/05/16 Blood Culture, Received Pending 06/04/16 Urine Culture, Received Pending Result Diagram: 06/04/16 2303 06/04/16 2303 Microbiology blood and urine cultures pending X-Rays, CTs and MRIs CXR shows no acute process CT Brain, no radiology report yet, no abnormalities noted by resident. Assessment & Plan Patient is a homeless 40 year old female with a history of bipolar disorder, hydradenitis suppurativa, MRSA with multiple abscesses, endocarditis, IV heroin abuse, and recent pilonidal cyst I&D who presents to the ED complaining of a fever and malaise of known onset. Her pilonidal wound is deep and oozing purulent material. She reports a fever of 103F prior to arrival, but she is afebrile on arrival to the ED. Patient reports associated confusion, chills, myalgias, dizziness, cough, and pleuritic chest pain. 1. Possible Endocarditis, POA, meets sepsis criteria with source of infection in her pilonidal cyst being a deep wound with purulent discharge and elevated pulse and respirations and reported fever of 103. -Echocardiogram in the morning -Treat empirically with Vancomycin and Cipro 400mg IV q12h -continue NS at 100mls/hr IV (1 liter given in ED) -engage Dr Baker of ID in her care, consult ordered 2. Infected pilonidal cyst s/p I&D on 05/18/16, open wound, POA -wound care ordered 3. Chronic Pain, POA, -assess pain needs in morning when patient is conscious 4. Heroin Use, reported relapse 2 days ago -Ativan as needed for agitation -Ondansetron for nausea and vomiting. 5. Anxiety and Depression, POA, patient adherence to home medications is unknown due to sedation. -Assess use of buspirone, Prazosin, and Seroquel 6. Tobacco Abuse, POA -Nicotine patch available 21mg patch. PRN medications available for nausea, heartburn, constipation: Ondansetron, Maalox, Senna, Miralax Patient is admitted under inpatient status with expected length of stay greater than 2 midnights due to severity of presenting symptoms, risk of adverse event, and complexity of treatment plan. Pain Evaluation: Adequate Pain Control VTE Prophylaxis: Sub-Q Heparin (Unfractionated) Resuscitation Status: CPR: Attempt Resuscitation Attending Statement The patient was seen and examined together with Dr. Phillips on 06/05 and I agree with the history, exam and plan as outlined in the note above. Fabiano Phillips DO Jun 05, 2016 02:41 Kain Kline MD Jun 05, 2016 19:36
[2016-06-05] MEDS ORDERED: Buprenorphine 2 mg SL Tablet SL ONE (03:15)
[2016-06-05] MEDS ORDERED: Ciprofloxacin Inj 400 MG in IV Premix 1 EACH IV SCH (03:15)
[2016-06-05] MEDS: 0.9% Sodium Chloride 1,000 ML IV SCH ×2 (03:56→19:09)
--- NOTE | 2016-06-05 04:45 | PCM.CONPHA ---
Subjective Fever, Myalgias Reason for Pharmacy Consult: Vancomycin Dosing Objective Vital Signs Date Time Temp Pulse Resp B/P Pulse Ox O2 Delivery O2 Flow Rate FiO2 06/05/16 03:22 36.7 107 18 150/102 96 Room Air 06/05/16 03:21 101 06/05/16 03:07 100 13 139/79 97 Room Air 06/05/16 01:55 100 13 142/95 100 Room Air 06/05/16 00:20 101 24 129/65 98 Room Air 06/04/16 21:15 36.2 88 18 136/84 100 Room Air Weight (Kilograms): 83.800 Height (Feet): 5 Height (Inches): 4.00 Test 06/04/16 23:00 06/04/16 23:03 06/05/16 01:27 Urine Color Yellow (YELLOW) Urine Appearance Cloudy (CLEAR,HAZY) Urine pH 5.5 (5.0-8.0) Urine Specific [place] 1.030 (1.003-1.035) Urine Protein 30mg/dL (NEG,TRACE) Urine Glucose (UA) Negativemg/dL (NEGATIVE) Urine Ketones Negativemg/dL (NEGATIVE) Urine Occult Blood Small (NEGATIVE) Urine Nitrite Negative (NEGATIVE) Urine Bilirubin Negative (NEGATIVE) Urine Urobilinogen Normalmg/dL (NORMAL) Urine Leukocyte Esterase Negative (NEGATIVE) Urine RBC 0-2/hpf (0-2) Urine WBC 0-5/hpf (0-5) Urine Epithelial Cells Many/hpf (NONE-MOD) Urine Crystals None seen (NONE SEEN) Urine Bacteria Many/hpf (NONE-FEW) Urine Hyaline Casts None/lpf (NONE) Urine Granular Casts None seen (NONE SEEN) Urine Waxy Casts None seen (NONE SEEN) Urine Red Blood Cell Casts None seen (NONE SEEN) Urine White Blood Cell Casts None seen (NONE SEEN) Urine Mucus None seen (None Seen) Urine Trichomonas None seen (NONE SEEN) Urine Yeast None (NONE SEEN) Urinalysis Comment None Urine Culture Reflexed Indicated White Blood Count 6.7th/mm3 (3.8-10.1) Red Blood Count 4.51mil/mm3 (3.90-5.20) Hemoglobin 13.1g/dL (12.0-15.6) Hematocrit 39.8% (35.0-46.0) Mean Corpuscular Volume 88fL (81-100) Mean Corpuscular Hemoglobin 29.0pg (27.0-35.0) Mean Corpuscular Hemoglobin Concent 32.9% (32.0-37.0) Red Cell Distribution Width 13.7% (12.3-15.4) Platelet Count 318bil/L (150-400) Neutrophils (%) (Auto) 36.9% (40-74) Lymphocytes (%) (Auto) 46.1% (14-46) Monocytes (%) (Auto) 9.7% (4-12) Eosinophils (%) (Auto) 6.4% (0-5) Basophils (%) (Auto) 0.9% (0-3) Erythrocyte Sedimentation Rate 15mm/hr (0-32) Sodium Level 141mEq/L (134-144) Potassium Level 4.0mEq/L (3.5-5.2) Chloride Level 101mEq/L (97-108) Carbon Dioxide Level 25mmol/L (18-29) Blood Urea Nitrogen 16mg/dL (6-24) Creatinine 0.60mg/dL (0.57-1.00) Estimat Glomerular Filtration Rate 159mL/min (>59) Glucose Level 91mg/dL (60-99) Lactic Acid Level 0.8mmol/L (0.4-2.0) Calcium Level 9.1mg/dL (8.5-10.1) Phosphorus Level 4.3mg/dL (2.5-4.9) Magnesium Level 1.9mg/dL (1.6-2.6) Total Bilirubin 0.2mg/dL (0.0-1.2) Aspartate Amino Transf (AST/SGOT) 21U/L (0-50) Alanine Aminotransferase (ALT/SGPT) 20U/L (0-32) Alkaline Phosphatase 88U/L (25-150) Troponin T 0.010ug/L (0.0-0.011) Pro-B-Type Natriuretic Peptide 40.99pg/mL (0-130) Total Protein 7.2g/dL (6.4-8.4) Albumin 3.9g/dL (3.4-5.0) Procalcitonin 0.04ng/mL (0.00-0.08) Alcohols 10mg/dL (0-10) Prothrombin Time 10.0sec (8.1-12.5) Prothromb Time International Ratio 0.94ratio Activated Partial Thromboplast Time 28.5sec (22.8-33.0) D-Dimer < 0.50mg/L FEU (<0.50) Assessment/Plan Assessment/Plan VANCOMYCIN DOSING PER PHARMACY Indication: Possible endocarditis, HX of MRSA Additional abx: levaquin BC pending Labs: Scr:0.60 WBC: 6.7 Of note: Pt's weight changed from initial profile when loading dose was given to when admitted to the floor P: Pt was given loading dose of vancomycin 2000 mg IV @ 0330 on 06/05 On previous admission, pt was on vancomycin 1g IV q8 Will initiate dosing as above beginning at 1200 Will draw trough on 06/06 @ 0330 Thank you. Liliya Neumann PharmD Jun 05, 2016 04:45
[2016-06-05] MEDS: Levofloxacin 500 mg/100 mL D5W IV SCH (05:27)
[2016-06-05 06:14] LABS: BASOPHILS % (AUTO) 0.6 % (0-3); EOSINOPHILS % (AUTO) 5.6 % (0-5); Mean Corpuscular Hemoglobin 28.7 pg (27.0-35.0); Mean Corpuscular Volume 89.1 fL (81-100); NEUTROPHILS % (AUTO) 47.9 % (40-74); Platelet Count 110 bil/L (150-400)
[2016-06-05] MEDS ORDERED: Vancomycin Dose per Pharmacist XX SCH (08:30)
--- NOTE | 2016-06-05 08:45 | DRSVH ---
PROCEDURE: CT BRAIN WITHOUT CONTRAST ([id number]) INDICATIONS: confusional state TECHNIQUE: Noncontrast 4.5 mm thick angled axial sections acquired from the foramen magnum to the vertex, with c oronal reformats. COMPARISON: None. FINDINGS: Image quality: Excellent. CSF spaces: Basal cisterns are patent. No extra-axial fluid collections. Ventricles are normal in size and shape. Brain: No midline shift. No intracranial masses or hemorrhage. [place]-white matter interface is norm al. Skull and face: Calvarium and visualized facial bones are intact, without suspicious lesions. Sinuses: Visualized sinuses and mastoids are clear. IMPRESSION: No acute intracranial disease process. Dictated by: Alda Willis MD, PhD on 06/05/2016 at 8:42 Approved by: Alda Willis MD, PhD on 06/05/2016 at 8:44
--- NOTE | 2016-06-05 08:53 | PCM.PNSURG ---
Subjective Visit Information: Reason for Visit Fever,Ivda,Mult Abscesses, R/O Sbe Surgery/Surgery Date Post-Op Day # Date of Admission: Jun 05, 2016 at 00:54 Hospital Day # Subjective: pt known to me, had pilonidal cyst excision in April followed by wound infection , underwent I & D by Dr. Ba on 05/17. Has been seen by [facility] on 05/23. Objective Objective Arousable Pilonidal wound is clean, some yellowish slough that's easily removable. Vital Sign- Last 8 Hours Date Time Temp Pulse Resp B/P Pulse Ox O2 Delivery O2 Flow Rate FiO2 06/05/16 03:22 36.7 107 18 150/102 96 Room Air 06/05/16 03:21 101 06/05/16 03:07 100 13 139/79 97 Room Air 06/05/16 01:55 100 13 142/95 100 Room Air Intake and Output- Last 8 Hour 06/05/16 Cumulative From/Thru 07:00 06/04/16 21:15 - 06/05/16 06:07 Intake Total 542 ml 542 ml Output Total 700 ml 700 ml Balance -158 ml -158 ml Intake Oral 0 ml 0 ml IV Total 542 ml 542 ml Output Urine Total 700 ml 700 ml # Bowel Movements 0 0 Result Diagram: 06/05/16 0600 06/04/16 2308 Assessment & Plan Impression Pilonidal wound, stable Hidradenitis Hx of MRSA Problems: Plan Recommend simple daily dressing change and Wound Care follow-up. Pollo Ingram MD Jun 05, 2016 08:53
[2016-06-05] MEDS: Heparin 5,000 Unit/mL Inj SUBQ SCH ×3 (10:12→23:51)
[2016-06-05] MEDS: Sodium Chloride LOK Flush 10 mL Syringe IVFLUSH SCH ×3 (10:12→23:43)
--- NOTE | 2016-06-05 10:50 | DRSVH ---
PROCEDURE: X-RAY CHEST ONE VIEW, PORTABLE ([id number]) INDICATIONS: post central line TECHNIQUE: One view of the chest was acquired. COMPARISON: None. FINDINGS: Surgical changes and devices: Right IJ CVL is in place tip projected over the mid to lower SVC. Lungs and pleura: No pleural effusions or pneumothorax. Lungs are clear. Mediastinum: Mediastinal contours appear normal. Heart size is normal. Bones and chest wall: No suspicious bony lesions. Overlying soft tissues appear unremarkable. IMPRESSION: Placement of right IJ CVL and no pneumothorax is present. Dictated by: Floyd Fox [facility] Interpreted: Steven Estrada MD on 06/05/2016 at 10:49 Transcribed by: ESVIN on 06/05/2016 at 10:50 Approved by: Steven Estrada M.D. on 06/05/2016 at 15:40
[2016-06-05] MEDS: Buprenorphine 2 mg SL Tablet SL SCH ×2 (10:53→21:04)
[2016-06-05] MEDS: Vancomycin Inj 1,000 MG in IV Premix 1 EACH IV SCH ×2 (12:59→20:39)
[2016-06-05] MEDS ORDERED: diphenhydrAMINE 25 mg Capsule PO PRN (13:35)
--- NOTE | 2016-06-05 16:23 | DRSVH ---
[facility] [address] [place] [address] Echocardiogram Report Name: POPPY BONILLA MStudy Date: 06/05/2016 Height: 64 in Hospital Exam Location: [facility] Weight: 184 lb Gender: Female BSA: 1.9 m2 : 1975 Age: 40 yrs BP: 123/75 mmHg Reason For Study: Endocarditis Ordering Physician: Performed By: Cele Faria HOSPITALIST [facility] Interpretation Summary The ejection fraction is estimated to be 60-65%. Echolucency in the RA posteriro wall most likely represents karol terminalis. There is no significant valvular heart disease. Procedure: A two-dimensional transthoracic echocardiogram with color flow and Doppler was performed. The study quality was technically good. There is no prior echocardiogram noted for this patient. The patient was in normal sinus rhythm during the exam. Left Ventricle: The left ventricle is normal in size. There is normal left ventricular wall thickness. The ejection fraction is estimated to be 60-65%. Assessment of diastolic parameters indicates normal left ventricular diastolic function and normal filling pressures. Right Ventricle: The right ventricle is normal in size and function. Atria: The left atrial size is normal. Right atrial size is normal. Echolucency in the RA posteriro wall most likely represents karol terminalis. The interatrial septum is intact with no evidence for an atrial septal defect. Mitral Valve: The mitral valve is normal in structure and function. There is no vegetation seen on the mitral valve. There is trace mitral regurgitation. Aortic Valve: The aortic valve is normal in structure and function. There is no aortic valvular vegetation. No aortic regurgitation is present. Tricuspid Valve: The tricuspid valve is normal in structure and function. There is no tricuspid valve vegetation. There is trace tricuspid regurgitation. Pulmonary artery pressures cannot be estimated because of the lack of a measurable TR jet velocity. Pulmonic Valve: The pulmonic valve is normal in structure and function. There is no vegetation on the pulmonic valve. There is a trace or physiologic amount of pulmonic regurgitation. Great Vessels: The aortic root is normal size. The pulmonary artery is normal size. The IVC is of normal diameter and collapses less than 50% with a sniff. This suggests a right atrial pressure of 8 mm Hg. Pericardium/ Pleura There is no pericardial effusion. There is no pleural effusion. MMode/2D Measurements & Calculations LVIDd: 4.6 cm RA long axis LVOT diam LVIDs: 3.0 cm LA A2 area: 18.4 cm FS: 34.6 % LA A4 area: 20.3 cm RA area Ao root diam IVSd: 0.99 cm LA length (vol): 5.3 cm LVPWd: 1.0 cm LA vol: 59.5 ml : 16.1 cm Aortic Jxn LA vol index RA vol: 48.5 ml : 2.3 cm RA : 25.7 mm2 IVC diam: 2.1 cm LV figueroa. diameter/BSA LV sys. diameter/BSA RVD1 (basal) (cm/m^2): 2.4 (cm/m^2): 1.6 Doppler Measurements & Calculations Ao V2 max MV E max fam MV E/A: 1.1 TR max fam : 159.8 cm/sec : 96.1 cm/sec Med Peak E' Fam : 194.8 cm/sec Ao max PG MV A max fam TR max PG : 10.2 mmHg : 85.5 cm/sec E/E' med: 12.1 : 15.2 mmHg Ao mean PG MV P1/2t: 76.5 msec Lat Peak E' Fam PA V2 max : 91.0 cm/sec LVOT Max Fam E/E' lat: 8.8 PA mean PG : 98.1 cm/sec E/e' average PA Accel Time MARIA ELENA(I,D): 3.0 cm : 0.14 sec sev ratio MV dec time MV P1/2t max fam Ao V2 mean LV V1 max PG : 0.26 sec : 97.0 cm/sec MVA(P1/2t): 2.9 cm2 Ao V2 VTI: 30.7 cm LV V1 VTI MARIA ELENA(V,D): 2.4 cm2 : 23.7 cm PA V2 mean MARIA ELENA indexed to BSA : 61.6 cm/sec (cm^2/m^2): 1.6 Electronically signed by: Emery Schaefer on Reading Physician:06/05/2016 04:20 PM
[2016-06-05] MEDS ORDERED: PARO10TA2 PO (17:29)
[2016-06-05] MEDS ORDERED: PAROXETINE 10 MG PO SCH (19:40)
[2016-06-05] MEDS ORDERED: Albuterol 2.5 mg/3 mL Inhalation Solution NEB PRN (20:00)
[2016-06-05] MEDS: Fluticasone-Salmererol 250-50 Inhaler INHALATION SCH (21:00)
[2016-06-05] MEDS: PARoxetine 20 mg Tablet PO SCH (21:02)
[2016-06-05] MEDS: BusPIRone 15 mg Dividose Tablet PO SCH (21:02)
--- NOTE | 2016-06-05 22:22 | PCM.PNMED ---
Subjective Date of Service Jun 05, 2016 Subjective Patient is seen and examined. She is very pleasant. We went over her medications and all medications she needed were ordered. She says that she was found by Dr. Gonzales and she had such a added infection that she did not know where she was, she did not mention any drug abuse that is recent. There is a male friend in the room visiting.. She now has a an IJ on the right side, she states it is because ER could not find access. She states she had diarrhea earlier but last 3 days she has been clear infection thinks she may be constipated. Dr. Ingram saw her earlier today and packed the pilonidal cyst surgical area. She is currently on vancomycin and Levaquin for what looks like hidradenitis suppurativa. Exam Vital Signs Vital Sign - Last Date Time Temp Pulse Resp B/P Pulse Ox O2 Delivery O2 Flow Rate FiO2 06/05/16 03:22 36.7 107 18 150/102 96 Room Air Intake and Output 06/04/16 06/04/16 06/05/16 Cumulative From/Thru 15:00 23:00 07:00 06/04/16 21:15 - 06/05/16 04:58 Intake Total 0 ml 0 ml Output Total 700 ml 700 ml Balance -700 ml -700 ml Intake Oral 0 ml 0 ml Output Urine Total 700 ml 700 ml # Bowel Movements 0 0 Exam General: NAD, laying in bed HEENT: NCAT, poor dentition, hirsutic female Eyes: [place] conjunctivae. No ptosis, Neck: trachea midline, no thyromegaly Lungs: CTA with normal respiratory effort, no crackles or wheezes CV: RRR, no murmurs/rubs/gallop GI: Soft, non-distended MSK: no digital cyanosis Skin: Warm and dry. Several skin lesions that match hidradenitis are present Psych: A&O X3, with appropriate affect. Patient was picking on her skin continuously. She is particularly picking on ia small cyst on her forehead stating she is getting the pus out, however there was no visible pus seen coming out. IVs and Medications Medications Reviewed: Medications were reviewed in detail Lab and Diagnostics Intake and Output 06/04/16 06/04/16 06/05/16 Cumulative From/Thru 15:00 23:00 07:00 06/04/16 21:15 - 4/26/17 06:07 Intake Total 542 ml 542 ml Output Total 700 ml 700 ml Balance -158 ml -158 ml Intake Oral 0 ml 0 ml IV Total 542 ml 542 ml Output Urine Total 700 ml 700 ml # Bowel Movements 0 0 Result Diagram: 06/04/16 23006/[id number]/162302 Microbiology blood and urine cultures pending X-Rays, CTs and MRIs Ordering Phys: Joshua Caal MD Date of Service: 06/05/16 0126 PROCEDURE: X-RAY CHEST ONE VIEW, PORTABLE ([id number]) IMPRESSION: Placement of right IJ CVL and no pneumothorax is present. Dictated by: Floyd Fox RRA Interpreted: Steven Estrada MD on 06/05/2016 at 10 :49 Transcribed by: ESVIN on 06/05/2016 at 10:50 Approved by: Steven Estrada M.D. on 06/05/2016 at 15:40 Ordering Phys: Joshua Caal MD Date of Service: 06/05/16 0028 IMPRESSION: No acute intracranial disease process. Dictated by: Alda Willis MD, PhD on 06/05/2016 at 8:42 Approved by: Alda Willis MD, PhD on 06/05/2016 at 8:44 Ordering Phys: SABAS HEART MD Date of Service: 06/04/161 IMPRESSION: No acute process. Dictated by: Shona Hardin M.D. on 06/04/2016 at 21:52 Approved by: Shona Hardin M.D. on 06/04/2016 at 21:52 Assessment & Plan Patient is a homeless 40 year old female with a history of bipolar disorder, hydradenitis suppurativa, MRSA with multiple abscesses, endocarditis, IV heroin abuse, and recent pilonidal cyst I&D who presents to the ED complaining of a fever and malaise of known onset. Her pilonidal wound is deep and oozing purulent material. She reports a fever of 103F prior to arrival, but she is afebrile on arrival to the ED. Patient reports associated confusion, chills, myalgias, dizziness, cough, and pleuritic chest pain. 1. Possible Endocarditis, POA, meets sepsis criteria with source of infection in her pilonidal cyst being a deep wound with purulent discharge and elevated pulse and respirations and reported fever of 103. -- She does not appear to be septic, echocardiogram is negative white count is normal, pro-calcitonin is normal -- We will follow blood cultures 2. Hidradenitis suppurativa -- Treatment for hidradenitis is doxycycline, we will switch her to Doxy. Chlorhexidine bath for skin -- mupirocin will be ordered -- continue NS at 50 s/hr IV (1 liter given in ED) -- We will consider ID consult once Dr. Baker returns from his trip 3. Infected pilonidal cyst s/p I&D on 05/18/16, open wound, POA -wound care ordered -- General surgery is following, Dr. Ingram has she seen the patient today and packed the wound 4 Chronic Pain, POA, - Discussed pain management with Dr. Gonzales put her back on her home regimen for Subutex. 16 mg in the morning and 8 in the evening -- Dr. Ingram has given her oxycodone pills 20 of them at her discharge previously , she says she has 1 or 2 pills left at home. These were not continued as he has not refilled. -- Continue to monitor -- Per Dr. Gonzales do not give patient Dilaudid and IV narcotics. Dr. Gonzales says that she is [facility] home-going prescription for Subutex and we can contact her for the prescription. We will be able to call it in with her name. 4. Heroin Use, reported relapse 2 days ago -Patient has Klonopin home medication for anxiety -Ondansetron for nausea and vomiting. 5. Anxiety and Depression, POA, patient adherence to home medications is unknown due to sedation. -Assess use of buspirone, Prazosin, and Seroquel 6. Tobacco Abuse, POA -Nicotine patch available 21mg patch. 7. Chronic bipolar disorder continue meds 8. Obsessive-compulsive disorder: Continue home meds PRN medications available for nausea, heartburn, constipation: Ondansetron, Maalox, Senna, Miralax Patient is admitted under inpatient status with expected length of stay greater than 2 midnights due to severity of presenting symptoms, risk of adverse event, and complexity of treatment plan. Pain Evaluation: Adequate Pain Control VTE Prophylaxis: Sub-Q Heparin (Unfractionated) Resuscitation Status: CPR: Attempt Resuscitation Pain Evaluation: Adequate Pain Control Resuscitation Status: CPR: Attempt Resuscitation Yana Walker DO Jun 05, 2016 06:11
[2016-06-06] VITALS (7 sets, daily range): BP systolic 101–128; BP diastolic 64–78; PULSE 72–87; RESP 16–20; O2SAT 97–100
[2016-06-06] MEDS: 0.9% Sodium Chloride 1,000 ML IV SCH ×2 (00:57→14:33)
[2016-06-06] MEDS ORDERED: Vancomycin Serum Trough XX ONE (03:30)
[2016-06-06 04:26] LABS: Mean Corpuscular Hemoglobin 28.7 pg (27.0-35.0); Mean Corpuscular Volume 89.7 fL (81-100)
[2016-06-06] MEDS: Levofloxacin 500 mg/100 mL D5W IV SCH (05:13)
[2016-06-06] MEDS: Buprenorphine 2 mg SL Tablet SL SCH ×2 (08:30→21:28)
[2016-06-06] MEDS: Sodium Chloride LOK Flush 10 mL Syringe IVFLUSH SCH ×2 (08:30→17:12)
[2016-06-06] MEDS: BusPIRone 15 mg Dividose Tablet PO SCH (10:10)
[2016-06-06] MEDS: Heparin 5,000 Unit/mL Inj SUBQ SCH ×2 (10:11→17:12)
[2016-06-06] MEDS: Mupirocin 2% 22 Gm Ointment TOPICAL SCH ×2 (10:12→21:29)
[2016-06-06] MEDS: Fluticasone-Salmererol 250-50 Inhaler INHALATION SCH ×2 (10:12→21:29)
--- NOTE | 2016-06-06 15:43 | PCM.PNMED ---
Subjective Date of Service Jun 06, 2016 Subjective ROS is currently limited secondary to patient very somnolent after having received pain medications earlier. She barely wakes up and when asked if she has any discomfort she says "no" Exam Vital Signs Vital Sign - Last Date Time Temp Pulse Resp B/P Pulse Ox O2 Delivery O2 Flow Rate FiO2 06/06/16 14:37 36.9 72 16 119/75 99 Room Air Intake and Output 06/05/16 06/05/16 06/06/16 Cumulative From/Thru 15:00 23:00 07:00 06/04/16 21:15 - 06/06/16 06:16 Intake Total 1639 ml 1734 ml 3915 ml Output Total 1500 ml 1000 ml 3200 ml Balance 139 ml 734 ml 715 ml Intake Oral 400 ml 750 ml 1150 ml IV Total 1239 ml 984 ml 2765 ml Output Urine Total 1500 ml 1000 ml 3200 ml # Bowel Movements 0 0 General: No Acute Distress, Other (very somnolent and sleepy. Full exam is somewhat limited due to patient's somnolence and altered mental status.) Head: Normal Eyes: PERRLA, EOMI, Scleral Anicteric Nose: Mucous Membr Moist/[place] Mouth: Mucous Membr Moist/[place] Neck: Supple Chest & Lungs: Chest Wall Normal, Clear to auscultation & percussion Cardiovascular: Regular Rate/Rhythm Abdomen: Non-tender, Non-distended, Normoactive bowel tones, Soft Extremities: No cyanosis/clubbing/edma bilat Neurological: Other (full exam limited due to somnolence. However no acute focal deficits appreciated.) IVs and Medications Medications Reviewed: Medications were reviewed in detail Lab and Diagnostics Result Diagram: 06/06/165 06/06/16 0405 Microbiology blood and urine cultures pending X-Rays, CTs and MRIs Ordering Phys: Joshua Caal MD Date of Service: 06/05/16 012 PROCEDURE: X-RAY CHEST ONE VIEW, PORTABLE ([id number]) IMPRESSION: Placement of right IJ CVL and no pneumothorax is present. Dictated by: Floyd MONTANO Interpreted: Steven Estrada MD on 06/05/2016 at 10 :49 Transcribed by: ESVIN on 06/05/2016 at 10:50 Approved by: Steven Estrada M.D. on 06/05/2016 at 15:40 Ordering Phys: Joshua Caal MD Date of Service: 06/05/16 0028 IMPRESSION: No acute intracranial disease process. Dictated by: Alda Willis MD, PhD on 06/05/2016 at 8:42 Approved by: Alda Willis MD, PhD on 06/05/2016 at 8:44 Ordering Phys: SABAS HEART MD Date of Service: 06/04/161 IMPRESSION: No acute process. Dictated by: Shona Hardin M.D. on 06/04/2016 at 21:52 Approved by: Shona Hardin M.D. on 06/04/2016 at 21:52 Assessment & Plan 40 year old female with a history of bipolar disorder, hydradenitis suppurativa , MRSA with multiple abscesses, endocarditis, IV heroin abuse, and recent pilonidal cyst I&D who presents to the ED complaining of a fever and malaise of known onset. Her pilonidal wound is deep and oozing purulent material. She reports a fever of 103F prior to arrival, but she is afebrile on arrival to the ED. Patient reports associated confusion, chills, myalgias, dizziness, cough, and pleuritic chest pain. # Acute toxic encephalopathy with significant somnolence noted today. Likely due to side effect of medications (namely Suboxone and Klonopin) - Continue with cautious use of meds and try to space out pain meds and anti- anxiety meds - Followup - Continue with supportive care # Suspected acute sepsis noted on earlier notes seems clinically unlikely at this time and ruled out. # Chronic pilonidal cyst wound, present on admission. Ongoing. - s/p I&D on 05/18/16 - Appreciate surgery consult. Will followup with recommendations - Continue with "simple daily dressing change and Wound Care follow-up" # Hidradenitis suppurativa, poa - Started on Doxycycline per earlier notes - Chlorhexidine bath for skin - Consider ID consult when available # Acute urinary tract infection. present on admission. - Continue with Doxycycline ordered earlier - Followup final urine culture results. # Chronic Pain, POA, ongoing. - Continue with home regimen of Subutex: 16 mg in the morning and 8 in the evening (per earlier notes) - Per earlier notes: "Per Dr. Gonzales do not give patient Dilaudid and IV narcotics. Dr. Gonzales says that she is [facility] home-going prescription for Subutex and we can contact her for the prescription. We will be able to call it in with her name." # Heroin Use, reported relapse 2 days ago - Continue with Klonopin but hold if continue to be as somnolent as she has been today # Anxiety and Depression, POA, patient adherence to home medications is unknown due to sedation. - Assess use of buspirone, Prazosin, and Seroquel # Tobacco Abuse, POA - Nicotine patch available 21mg patch. # Chronic bipolar disorder. Presumed stable. - Continue with home medications # Obsessive-compulsive disorder: - Continue home meds Dispo: 1-2 days pending improved mental status and above issues. Resuscitation Status: CPR: Attempt Resuscitation Clemente Gao Jun 06, 2016 15:43
[2016-06-06] MEDS: PARoxetine 20 mg Tablet PO SCH (21:28)
[2016-06-07] MEDS: Sodium Chloride LOK Flush 10 mL Syringe IVFLUSH SCH ×3 (00:30→17:18)
[2016-06-07] MEDS: Heparin 5,000 Unit/mL Inj SUBQ SCH ×3 (00:55→17:18)
[2016-06-07] MEDS: Levofloxacin 500 mg/100 mL D5W IV SCH (05:38)
[2016-06-07 05:48] VITALS: BP 128/81; PULSE 85; RESP 18; O2SAT 97
[2016-06-07 08:51] VITALS: BP 129/78; PULSE 81; RESP 17; O2SAT 97
[2016-06-07] MEDS: Fluticasone-Salmererol 250-50 Inhaler INHALATION SCH ×2 (08:59→20:55)
[2016-06-07] MEDS: BusPIRone 15 mg Dividose Tablet PO SCH (09:00)
[2016-06-07] MEDS: Buprenorphine 2 mg SL Tablet SL SCH ×2 (09:01→21:00)
[2016-06-07] MEDS: Mupirocin 2% 22 Gm Ointment TOPICAL SCH ×2 (09:01→20:55)
--- NOTE | 2016-06-07 09:18 | PCM.PNSURG ---
Subjective Date of Service: Jun 07, 2016 Date of Service: Jun 07, 2016 Visit Information: Reason for Visit Fever,Ivda,Mult Abscesses, R/O Sbe Surgery/Surgery Date Post-Op Day # Date of Admission: Jun 05, 2016 at 00:54 Hospital Day # Subjective: Ms. Jason Clayton has a hx of pilonidal cyst excision in April followed by wound infection, underwent I & D by Dr. Ba on 05/17. Has been [facility]. Patient's pain improved from day before. She denies nausea, vomiting, abdominal pain, fever, chills, diarrhea. Objective Objective Vital Sign- Last 8 Hours Date Time Temp Pulse Resp B/P Pulse Ox O2 Delivery O2 Flow Rate FiO2 06/07/16 05:48 36.7 85 18 128/81 97 Room Air Intake and Output- Last 8 Hour 06/07/16 Cumulative From/Thru 07:00 06/04/16 21:15 - 06/07/16 06:08 Intake Total 2207 ml 6882 ml Output Total 2100 ml 5900 ml Balance 107 ml 982 ml Intake Oral 1040 ml 2950 ml IV Total 1167 ml 3932 ml Output Urine Total 2100 ml 5900 ml # Bowel Movements 0 0 General: Alert, Oriented X3, Cooperative Lungs: Clear to Auscultation Heart: Exam Unremarkable Abdomen: Soft SURGICAL WOUND : Wound Location/Description Pilonidal wound is clean, some yellowish slough that's easily removable. Result Diagram: 06/06/16 0405 06/06/16 0405 Assessment & Plan Impression Pilonidal wound, stable Hidradenitis Hx of MRSA Problems: Plan Recommend simple daily dressing change and Wound Care follow-up. Okay from surgery standpoint to d/c home. Resuscitation Status: CPR: Attempt Resuscitation MACHELLE CARDENAS DO Jun 07, 2016 07:58
--- NOTE | 2016-06-07 13:12 | PCM.PNMED ---
Subjective Date of Service Jun 07, 2016 Subjective Patient seen and examined. More awake today but still appears sedated. Denies any fever or chills. Exam Vital Signs Vital Sign - Last Date Time Temp Pulse Resp B/P Pulse Ox O2 Delivery O2 Flow Rate FiO2 06/07/16 08:51 36.6 81 17 129/78 97 Room Air Intake and Output 06/06/16 06/06/16 06/07/16 Cumulative From/Thru 15:00 23:00 07:00 06/04/16 21:15 - 06/07/16 06:08 Intake Total 760 ml 2207 ml 6882 ml Output Total 600 ml 2100 ml 5900 ml Balance 160 ml 107 ml 982 ml Intake Oral 760 ml 1040 ml 2950 ml IV Total 1167 ml 3932 ml Output Urine Total 600 ml 2100 ml 5900 ml # Bowel Movements 0 0 Exam General: Alert, Oriented X3, Cooperative, No acute Distress Eyes: PERRLA, Scleral Anicteric Mouth: Mouth Normal, Mucous Membranes Moist/[place] Neck: Supple, no Thyromegaly, trachea central. Chest & Lungs: Clear to auscultation & percussion, No adventitious breath sounds, no crackles, no wheeze Cardiovascular: Normal S1, Normal S2, No Murmurs/Rubs/Gallops, Regular Rate/ Rhythm, (No JVD, no peripheral edema) Pulses: Radial (present and equal), Dorsalis Pedi (present and equal) Abdomen: Soft, Non-tender, Non-distended, Normoactive bowel tones. Musculoskeletal: Unremarkable. Normal range of motion, no swollen or erythematous joints Extremities: No edema, no cyanosis, no clubbing. Skin: No rashes. Warm and dry, no erythematous areas Neurological: Grossly neurologically intact, Normal Speech, Sensation Intact Lymphatic: Lymph nodes Cervical and Axillary not palpable Lab and Diagnostics Microbiology 06/05/16 Blood Culture - Preliminary, Resulted No growth at 2 days; culture examined... 06/04/16 Urine Culture - Final, Complete Methicillin Resistant S Aureus Mixed Urogenital Constanza Result Diagram: 06/06/165 06/06/16 040 Microbiology blood and urine cultures pending X-Rays, CTs and MRIs Ordering Phys: Joshua Caal MD Date of Service: 06/05/16 0126 PROCEDURE: X-RAY CHEST ONE VIEW, PORTABLE ([id number]) IMPRESSION: Placement of right IJ CVL and no pneumothorax is present. Dictated by: Floyd Fox [facility] Interpreted: Steven Estrada MD on 06/05/2016 at 10 :49 Transcribed by: ESVIN on 06/05/2016 at 10:50 Approved by: Steven Estrada M.D. on 06/05/2016 at 15:40 Ordering Phys: Joshua Caal MD Date of Service: 06/05/16 0028 IMPRESSION: No acute intracranial disease process. Dictated by: Alda Willis MD, PhD on 06/05/2016 at 8:42 Approved by: Alda Willis MD, PhD on 06/05/2016 at 8:44 Ordering Phys: SABAS HEART MD Date of Service: 06/04/162120 IMPRESSION: No acute process. Dictated by: Shona Hardin M.D. on 06/04/2016 at 21:52 Approved by: Shona Hardin M.D. on 06/04/2016 at 21:52 Assessment & Plan 40 year old female with a history of bipolar disorder, hydradenitis suppurativa , MRSA with multiple abscesses, endocarditis, IV heroin abuse, and recent pilonidal cyst I&D who presents to the ED complaining of a fever and malaise of known onset. Her pilonidal wound is deep and oozing purulent material. She reports a fever of 103F prior to arrival, but she is afebrile on arrival to the ED. Patient reports associated confusion, chills, myalgias, dizziness, cough, and pleuritic chest pain. 1 Acute toxic encephalopathy with significant somnolence noted today. Improving Likely due to side effect of medications (namely Suboxone and Klonopin). No neurological deficit to suggest Stroke or meningitis - stopping Klonopin today - avoid further benzodiazepine or narcotics - Continue with supportive care 2 Suspected acute sepsis noted on earlier notes seems clinically unlikely at this time and ruled out. - Endocarditis also consider less likely with lack of positive blood cultures and normal echo results 3 Chronic pilonidal cyst wound, present on admission. Ongoing. - s/p I&D on 05/18/16 - Appreciate surgery consult and wound care team - Continue with "simple daily dressing change and Wound Care follow-up" 4 Hidradenitis suppurativa, poa - Started on Doxycycline per earlier notes - Chlorhexidine bath for skin - Consider ID consult when available 5 MRSA urinary tract infection. present on admission. - Continue with Doxycycline and Levaquin 6 Chronic Pain, ongoing. - Continue with home regimen of Subutex: 16 mg in the morning and 8 in the evening (per earlier notes) - Per earlier notes: "Per Dr. Gonzales do not give patient Dilaudid and IV narcotics. Dr. Gonzales says that she is [facility] home-going prescription for Subutex and we can contact her for the prescription. We will be able to call it in with her name." 7 Heroin Use, reported relapse 2 days ago - continue Suboxone 8 Anxiety and Depression patient adherence to home medications is unknown - Assess use of buspirone, Prazosin, and Seroquel 9 Nicotine dependence - Nicotine patch available 21mg patch. 10 Chronic bipolar disorder. Presumed stable. - Continue with home medications 11 Obsessive-compulsive disorder: - Continue home meds - Acetaminophen as needed for mild pain/fever/headache - Bowel regimen as needed - Antiemetic as needed Patient admitted under inpatient status with expected length of stay > 2 midnights for severity of present symptoms, complexities of treatment plan and risk for adverse event Dispo: Plan to discharge tomorrow . VTE Mechanical Devices: Intermittant Pneumatic CD Resuscitation Status: CPR: Attempt Resuscitation Kain Kline MD Jun 07, 2016 13:12
[2016-06-07 14:30] VITALS: BP 120/78; PULSE 80; RESP 16; O2SAT 97
[2016-06-07] MEDS: 0.9% Sodium Chloride 1,000 ML IV SCH (16:57)
[2016-06-07 18:43] VITALS: BP 129/82; PULSE 80; RESP 19; O2SAT 98
[2016-06-07 20:21] VITALS: BP 126/79; PULSE 79; RESP 20; O2SAT 99
[2016-06-07] MEDS: PARoxetine 20 mg Tablet PO SCH (20:54)
[2016-06-08] MEDS: Heparin 5,000 Unit/mL Inj SUBQ SCH ×3 (01:40→17:21)
[2016-06-08] MEDS: Sodium Chloride LOK Flush 10 mL Syringe IVFLUSH SCH ×3 (01:41→17:21)
[2016-06-08 05:36] VITALS: BP 120/78; PULSE 75; RESP 16; O2SAT 96
[2016-06-08] MEDS ORDERED: levoFLOXacin 500 mg Tablet PO SCH (07:00)
[2016-06-08] MEDS: Buprenorphine 2 mg SL Tablet SL SCH ×2 (07:53→21:40)
[2016-06-08] MEDS: BusPIRone 15 mg Dividose Tablet PO SCH (07:55)
[2016-06-08] MEDS: Mupirocin 2% 22 Gm Ointment TOPICAL SCH ×2 (07:57→21:42)
[2016-06-08] MEDS: Fluticasone-Salmererol 250-50 Inhaler INHALATION SCH ×2 (07:58→21:40)
[2016-06-08] MEDS ORDERED: Vancomycin Inj 1,750 MG in 0.9% Sodium Chloride 500 ML IV ONE (08:20)
[2016-06-08] MEDS: Vancomycin Dose per Pharmacist XX SCH (08:30)
--- NOTE | 2016-06-08 10:17 | PCM.PHAPRO ---
Progress Vancomycin Management by Pharmacy: -pt's urine cultured mrsa, hx of ivdu, pilonidal cysts, endocarditis has been ruled out -wbc 4.1, serum creatinine 06/06= 0.49, procalcitonin 0.05, afebrile -pt received a loading dose of Vancomycin 1.75gm x 1 at 0920 this morning -will give a maintenance regimen of 1.25gm iv [id number] with a trough level after 4 total doses (scheduled for 1730 on 06/09) -serum creatinine ordered daily x 2 -trough goal ~ 15 Mayelin Monsalve [facility] Jun 08, 2016 10:17
[2016-06-08] MEDS: 0.9% Sodium Chloride 1,000 ML IV SCH (12:57)
[2016-06-08 15:17] VITALS: BP 112/71; PULSE 71; RESP 16; O2SAT 99
[2016-06-08] MEDS: Vancomycin Inj 1,250 MG in 0.9% Sodium Chloride 250 ML IV SCH (17:42)
[2016-06-08 20:03] VITALS: BP 131/61; PULSE 81; RESP 16; O2SAT 98
[2016-06-08] MEDS: PARoxetine 20 mg Tablet PO SCH (21:40)
--- NOTE | 2016-06-08 23:43 | PCM.PNMED ---
Subjective Date of Service Jun 08, 2016 Subjective Patient seen and examined. More awake today. Denied any fever or chills. No urinary symptoms. Expressed concern about too much Suboxone and wanted to restart her Klonopin as she has been on it for a long time. Denies any dyspnea or chest pain Exam Vital Signs Vital Sign - Last Date Time Temp Pulse Resp B/P Pulse Ox O2 Delivery O2 Flow Rate FiO2 06/08/16 05:36 36.8 75 16 120/78 96 Room Air Intake and Output 06/07/16 06/07/16 06/08/16 Cumulative From/Thru 15:00 23:00 07:00 06/04/16 21:15 - 06/08/16 06:15 Intake Total 1502 ml 1040 ml 9424 ml Output Total 1500 ml 1450 ml 8850 ml Balance 2 ml -410 ml 574 ml Intake Oral 1502 ml 1040 ml 5492 ml IV Total 3932 ml Output Urine Total 1500 ml 1450 ml 8850 ml # Bowel Movements 0 0 0 Exam General: Alert, Oriented X3, Cooperative, No acute Distress Eyes: PERRLA, Scleral Anicteric Mouth: Mouth Normal, Mucous Membranes Moist/[place] Neck: Supple, no Thyromegaly, trachea central. Chest & Lungs: Clear to auscultation & percussion, No adventitious breath sounds, no crackles, no wheeze Cardiovascular: Normal S1, Normal S2, No Murmurs/Rubs/Gallops, Regular Rate/ Rhythm, (No JVD, no peripheral edema) Pulses: Radial (present and equal), Dorsalis Pedi (present and equal) Abdomen: Soft, Non-tender, Non-distended, Normoactive bowel tones. Musculoskeletal: Unremarkable. Normal range of motion, no swollen or erythematous joints Extremities: No edema, no cyanosis, no clubbing. Skin: No rashes. Warm and dry, no erythematous areas Neurological: Grossly neurologically intact, Normal Speech, Sensation Intact Lymphatic: Lymph nodes Cervical and Axillary not palpable IVs and Medications Medications Reviewed: Medications were reviewed in detail Lab and Diagnostics Laboratory Tests Test 06/08/16 05:00 Procalcitonin 0.05ng/mL (0.00-0.08) Microbiology 06/05/16 Blood Culture - Preliminary, Resulted No growth at 2 days; culture examined... 06/04/16 Urine Culture - Final, Complete Methicillin Resistant S Aureus Mixed Urogenital Constanza Result Diagram: 06/06/1640406/06/16 040 Microbiology blood and urine cultures pending X-Rays, CTs and MRIs Ordering Phys: Joshua Caal MD Date of Service: 06/05/16 0126 PROCEDURE: X-RAY CHEST ONE VIEW, PORTABLE ([id number]) IMPRESSION: Placement of right IJ CVL and no pneumothorax is present. Dictated by: Floyd Fox RRA Interpreted: Steven Estrada MD on 06/05/2016 at 10 :49 Transcribed by: ESVIN on 06/05/2016 at 10:50 Approved by: Steven Estrada M.D. on 06/05/2016 at 15:40 Ordering Phys: Joshua Caal MD Date of Service: 06/05/16 0028 IMPRESSION: No acute intracranial disease process. Dictated by: Alda Willis MD, PhD on 06/05/2016 at 8:42 Approved by: Alda Willis MD, PhD on 06/05/2016 at 8:44 Ordering Phys: SABAS HEART MD Date of Service: 06/04/161 IMPRESSION: No acute process. Dictated by: Shona Hardin M.D. on 06/04/2016 at 21:52 Approved by: Shona Hardin M.D. on 06/04/2016 at 21:52 Assessment & Plan 40 year old female with a history of bipolar disorder, hydradenitis suppurativa , MRSA with multiple abscesses, endocarditis, IV heroin abuse, and recent pilonidal cyst I&D who presents to the ED complaining of a fever and malaise of known onset. Her pilonidal wound is deep and oozing purulent material. She reports a fever of 103F prior to arrival, but she is afebrile on arrival to the ED. Patient reports associated confusion, chills, myalgias, dizziness, cough, and pleuritic chest pain. 1 Acute toxic encephalopathy. Improving Likely due to side effect of medications (namely Suboxone and Klonopin). No neurological deficit to suggest Stroke or meningitis. Urinary tract infection could also cause encephalopathy - restarting Klonopin today - avoid further benzodiazepine or narcotics - Suboxone dose decreased to 8 mg bid - Continue with supportive care 2 MRSA urinary tract infection. present on admission. Unclear if this is a colonization or true infection - stopping Doxycycline and Levaquin PO - stating Vancomycin IV, pharmacy dosing - will plan to consult with Dr Baker when he returns 3 Chronic pilonidal cyst wound, present on admission. Ongoing. - s/p I&D on 05/18/16 - Appreciate surgery consult and wound care team - Continue with "simple daily dressing change and Wound Care follow-up" 4 Hidradenitis suppurativa, poa - Chlorhexidine bath for skin 5 Suspected acute sepsis noted on earlier notes seems clinically unlikely at this time and ruled out. - Endocarditis also consider less likely with lack of positive blood cultures and normal echo results 6 Chronic Pain, ongoing. - Continue with home regimen of Subutex with doses change noted above 7 Heroin Use, reported relapse 2 days ago - continue Suboxone 8 Anxiety and Depression patient adherence to home medications is unknown - Assess use of buspirone, Prazosin, and Seroquel 9 Nicotine dependence - Nicotine patch available 21mg patch. 10 Chronic bipolar disorder. Presumed stable. - Continue with home medications 11 Obsessive-compulsive disorder: - Continue home meds - Acetaminophen as needed for mild pain/fever/headache - Bowel regimen as needed - Antiemetic as needed Patient admitted under inpatient status with expected length of stay > 2 midnights for severity of present symptoms, complexities of treatment plan and risk for adverse event Dispo: Plan to discharge tomorrow . VTE Mechanical Devices: Intermittant Pneumatic CD Resuscitation Status: CPR: Attempt Resuscitation Kain Kline MD Jun 08, 2016 08:12
[2016-06-09] MEDS: Heparin 5,000 Unit/mL Inj SUBQ SCH ×4 (01:45→23:40)
[2016-06-09] MEDS: Sodium Chloride LOK Flush 10 mL Syringe IVFLUSH SCH ×4 (01:45→23:40)
[2016-06-09] MEDS: Vancomycin Inj 1,250 MG in 0.9% Sodium Chloride 250 ML IV SCH ×3 (02:46→20:15)
[2016-06-09 07:17] VITALS: BP 129/69; PULSE 84; RESP 16; O2SAT 96
[2016-06-09] MEDS: Vancomycin Dose per Pharmacist XX SCH (08:26)
[2016-06-09] MEDS: Fluticasone-Salmererol 250-50 Inhaler INHALATION SCH ×2 (08:36→20:20)
[2016-06-09] MEDS: BusPIRone 15 mg Dividose Tablet PO SCH (08:37)
[2016-06-09] MEDS: Mupirocin 2% 22 Gm Ointment TOPICAL SCH ×2 (08:38→20:20)
[2016-06-09] MEDS: Buprenorphine 2 mg SL Tablet SL SCH ×2 (08:38→20:19)
[2016-06-09] MEDS: 0.9% Sodium Chloride 1,000 ML IV SCH (08:57)
[2016-06-09 11:46] VITALS: BP 105/67; PULSE 88; RESP 18; O2SAT 98
--- NOTE | 2016-06-09 12:02 | PCM.PNMED ---
Subjective Date of Service Jun 09, 2016 Subjective Patient seen and examined. Had some trouble sleeping last night but more awake and is happy with the decreased dose of Subxone. She is concern with a bump on her butt, not tender and no drainage Exam Vital Signs Vital Sign - Last Date Time Temp Pulse Resp B/P Pulse Ox O2 Delivery O2 Flow Rate FiO2 06/09/16 11:46 36.7 88 18 105/67 98 Room Air Intake and Output 06/08/16 06/08/16 06/09/16 Cumulative From/Thru 15:00 23:00 07:00 06/04/16 21:15 - 06/09/16 06:41 Intake Total 2591 ml 317 ml 23922 ml Output Total 700 ml 9550 ml Balance 1891 ml 317 ml 2782 ml Intake Oral 1484 ml 6976 ml IV Total 1107 ml 317 ml 5356 ml Output Urine Total 700 ml 9550 ml # Bowel Movements 0 Exam General: Alert, Oriented X3, Cooperative, No acute Distress Eyes: PERRLA, Scleral Anicteric Mouth: Mouth Normal, Mucous Membranes Moist/Carrick Neck: Supple, no Thyromegaly, trachea central. Chest & Lungs: Clear to auscultation & percussion, No adventitious breath sounds, no crackles, no wheeze Cardiovascular: Normal S1, Normal S2, No Rubs/Gallops, Regular Rate/Rhythm, soft systolic murmur noted (No JVD, no peripheral edema) Pulses: Radial (present and equal), Dorsalis Pedi (present and equal) Abdomen: Soft, Non-tender, Non-distended, Normoactive bowel tones. Musculoskeletal: Unremarkable. Normal range of motion, no swollen or erythematous joints Extremities: No edema, no cyanosis, no clubbing. Skin: skin lesion just above her buttock area, non tender with no drainage noted Neurological: Grossly neurologically intact, Normal Speech, Sensation Intact Lymphatic: Lymph nodes Cervical and Axillary not palpable IVs and Medications Medications Reviewed: Medications were reviewed in detail Lab and Diagnostics Laboratory Tests Test 06/09/16 05:40 Creatinine 0.50mg/dL (0.57-1.00) Microbiology 06/05/16 Blood Culture - Preliminary, Resulted No growth at 2 days; culture examined... 06/09/16 MRSA (PCR) - Final, Complete Mrsa Positive By Pcr 06/04/16 Urine Culture - Final, Complete Methicillin Resistant S Aureus Mixed Urogenital Constanza Result Diagram: 06/06/16 0405 06/09/16 0540 Microbiology blood and urine cultures pending X-Rays, CTs and MRIs Ordering Phys: Joshua Caal MD Date of Service: 06/05/16 0126 PROCEDURE: X-RAY CHEST ONE VIEW, PORTABLE ([id number]) IMPRESSION: Placement of right IJ CVL and no pneumothorax is present. Dictated by: Floyd Fox RRA Interpreted: Steven Estrada MD on 06/05/2016 at 10 :49 Transcribed by: ESVIN on 06/05/2016 at 10:50 Approved by: Steven Estrada M.D. on 06/05/2016 at 15:40 Ordering Phys: Joshua Caal MD Date of Service: 06/05/16 0028 IMPRESSION: No acute intracranial disease process. Dictated by: Alda Willis MD, PhD on 06/05/2016 at 8:42 Approved by: Alda Willis MD, PhD on 06/05/2016 at 8:44 Ordering Phys: SABAS HEART MD Date of Service: 06/04/161 IMPRESSION: No acute process. Dictated by: Shona Hardin M.D. on 06/04/2016 at 21:52 Approved by: Shona Hardin M.D. on 06/04/2016 at 21:52 Assessment & Plan 40 year old female with a history of bipolar disorder, hydradenitis suppurativa , MRSA with multiple abscesses, endocarditis, IV heroin abuse, and recent pilonidal cyst I&D who presents to the ED complaining of a fever and malaise of known onset. Her pilonidal wound is deep and oozing purulent material. She reports a fever of 103F prior to arrival, but she is afebrile on arrival to the ED. Patient reports associated confusion, chills, myalgias, dizziness, cough, and pleuritic chest pain. Hospital Day 4 1 Acute toxic encephalopathy. Present on admission. Resolved Likely due to side effect of medications (namely Suboxone and Klonopin). No neurological deficit to suggest Stroke or meningitis. Urinary tract infection could also cause encephalopathy - continue scheduled Klonopin - avoid further benzodiazepine or narcotics - Suboxone dose decreased to 8 mg bid - Continue with supportive care 2 MRSA urinary tract infection. present on admission. Unclear if this is a colonization or true infection - stopping Doxycycline and Levaquin PO - Vancomycin IV, pharmacy dosing started 06/08 - will discuss with Dr Baker, maybe stop antibiotics versus PO antibiotics on discharge 3 Chronic pilonidal cyst wound, present on admission. Ongoing. - s/p I&D on 05/18/16 - Appreciate surgery consult and wound care team - Continue with "simple daily dressing change and Wound Care follow-up" 4 Hidradenitis suppurativa, present on admission - Chlorhexidine bath for skin 5 Suspected acute sepsis noted on earlier notes seems clinically unlikely at this time and ruled out. - Endocarditis also consider less likely with lack of positive blood cultures and normal echo results 6 Chronic Pain, ongoing. - medications reviewed and will continue with current regimen - No narcotics please, currently on Tylenol and Ibuprofen 7 Heroin Use, reported relapse 2 days ago - continue Suboxone 8 Anxiety and Depression patient adherence to home medications is unknown - continue buspirone, Prazosin, and Seroquel 9 Nicotine dependence - Nicotine patch available 21mg patch. 10 Chronic bipolar disorder and Obsessive-compulsive disorder. Presumed stable. - Continue with home medications - Acetaminophen as needed for mild pain/fever/headache - Bowel regimen as needed - Antiemetic as needed Patient admitted under inpatient status with expected length of stay > 2 midnights for severity of present symptoms, complexities of treatment plan and risk for adverse event Dispo: Plan to discharge tomorrow . VTE Mechanical Devices: Intermittant Pneumatic CD Resuscitation Status: CPR: Attempt Resuscitation Kain Kline MD Jun 09, 2016 12:02
[2016-06-09] MEDS: Polyethylene Glycol (PEG) 17 Gm Powder PO PRN (12:19)
[2016-06-09 16:41] VITALS: BP 101/67; PULSE 74; RESP 18; O2SAT 98
[2016-06-09] MEDS ORDERED: Vancomycin Serum Trough XX ONE (17:30)
[2016-06-09] MEDS: PARoxetine 20 mg Tablet PO SCH (20:19)
[2016-06-09 20:38] VITALS: BP 140/61; PULSE 74; RESP 18; O2SAT 97
[2016-06-10] MEDS: Vancomycin Inj 1,250 MG in 0.9% Sodium Chloride 250 ML IV SCH (02:21)
[2016-06-10] MEDS: 0.9% Sodium Chloride 1,000 ML IV SCH (04:57)
[2016-06-10] MEDS ORDERED: KLO1T PO (05:28)
[2016-06-10] MEDS ORDERED: BUPR1FIL3 SL ×2 (05:34→12:19)
[2016-06-10 06:54] VITALS: BP 107/58; PULSE 76; RESP 18; O2SAT 96
[2016-06-10] MEDS: Vancomycin Dose per Pharmacist XX SCH (08:30)
[2016-06-10] MEDS: BusPIRone 15 mg Dividose Tablet PO SCH (08:47)
[2016-06-10] MEDS: Fluticasone-Salmererol 250-50 Inhaler INHALATION SCH (08:47)
[2016-06-10] MEDS: Sodium Chloride LOK Flush 10 mL Syringe IVFLUSH SCH (08:47)
[2016-06-10] MEDS: Mupirocin 2% 22 Gm Ointment TOPICAL SCH (08:49)
[2016-06-10] MEDS: Buprenorphine 2 mg SL Tablet SL SCH (08:49)
[2016-06-10] MEDS: Heparin 5,000 Unit/mL Inj SUBQ SCH (08:51)
[2016-06-10] MEDS: Polyethylene Glycol (PEG) 17 Gm Powder PO PRN (10:15)
[2016-06-10] MEDS ORDERED: 0.9% Sodium Chloride 0 ML ONE (10:18)
--- NOTE | 2016-06-10 12:20 | PCM.DIMED ---
Discharge Instructions Date of Service June 10, 2016 Dates of Hospitalization Jun 05, 2016 at 00:54 Discharge Diagnosis Discharge Diagnosis Altered Mental status due to polypharmacy, UTI (MRSA), Hydradenitis Suppurativa , Anxiety Diet No restrictions Activity No restrictions Call your provider Fever or Chills, Shortness of breath, Bleeding, Vomitting, Excessive diarrhea, Weakness (unilateral), Other Patient Instructions Please note your suboxne is changed to 16 mg just in the AM. Per Dr. Gonzales, Clonazepam is not your home medication, please discuss this with her tomorrow at the clinic. Please apply bactroban over skin lesions and nares as prescribed till you see your pcp Follow-up plan Please follow up with Dr. Gonzales in 1-4 days at [facility]. She will be there tomorrow afternoon. Please follow up with your PCP in 7-10 days F/U with Wound care for packing of pilonydal cyst as before. Yana Walker DO June 10, 2016 05:36
[2016-06-10] MEDS ORDERED: Mupirocin 2% 22 Gm Ointment NASAL ONE (12:45)
[2016-06-10] MEDS ORDERED: MUPI22OI2 NASAL (12:47)
[2016-06-10] MEDS ORDERED: MUPI22OI2 TOPICAL (12:47)
[2016-06-10] MEDS ORDERED: Buprenorphine 2 mg SL Tablet SL ONE (12:50)
[2016-06-10] MEDS ORDERED: DOXY100T2 PO (12:54)
[2016-06-10] MEDS ORDERED: SENN-133 PO (12:54)
--- NOTE | 2016-06-10 16:50 | CONS ---
[address] [address] CONSULTATION REPORT PATIENT: POPPY BONILLA : 1975 MR#: [id number] ADMIT: 06/05/2016 JOB ID: [id number] DATE OF SERVICE: 06/10/2016 REASON FOR CONSULTATION: MRSA UTI and hidradenitis in a patient with possible history of hep C. I thank Dr. Walker of Internal Medicine for this timely consult. HISTORY OF PRESENT ILLNESS: The patient is a complex 40-year-old woman with longstanding opiate addiction who has recently been on Suboxone. She is a homeless woman with bipolar disorder as well as obsessive-compulsive disorder, chronic hidradenitis, history of recurrent MRSA endocarditis and longstanding IV heroin use. She came to the ED with fever reportedly, but she was afebrile when she arrived on the . She notes she has had problems with pilonidal cysts recently as well as worsening of her hidradenitis of both underarms and in the groin. The patient noted prior to admission that she been taking Suboxone and that she had gradually been having increased dose of the Suboxone with good control of her heroin use except for a relapse on about June 03. At the time of her admission here on the , there was concern because she had the fever as well as the relapse of her heroine use and there was concern about possible endocarditis or significant wound infection in the underarm, in the groin or perhaps in one of her arms. Appropriate cultures were done and an echo was ordered. She was started on broad-spectrum antibiotics. After blood cultures were found to be negative, it was noted that she had positive MRSA in her urine as well as ongoing hidradenitis under the arms and, to a lesser extent, in the left groin. Because of the MRSA in the urine as well as the hidradenitis, she was prescribed doxycycline which was later changed to IV vancomycin for unclear reasons. In any event, the patient reports that she has been steadily improving overall and is now ready to go home. She states she has had no recent fevers, chills, or sweats and no particular worsening of her hidradenitis in any of those locations mentioned above. The patient is a bit lethargic this morning, but basically she tells me she is feeling well and ready to go. She tells me she has subjective fevers, chills, and sweats which are constant and she is unclear if that is related to her drug use or possible infections. She also tells me her hidradenitis under her arms and in her groin is also a constant problem for her but is actually improved lately. She denies any overt pulmonary or GI symptoms this morning and specifically denies cough or shortness of breath. She also denies nausea, vomiting, diarrhea, or dysuria. The patient tells me she has chronic hepatitis C, I cannot find any record of this in the computer. She tells me she was evaluated in the GI clinic across the street which I assume to mean the [facility]. She tells me there she was told her viral load was too low to initiate treatment. It is unclear to me what this means. PAST MEDICAL HISTORY: 1. History of relapsing intravenous heroin use, now on Suboxone. 2. History of endocarditis in the distant past though the details of this endocarditis episode are not clear in the chart. 3. Bipolar disorder. 4. Hidradenitis suppurativa. 5. Depression. 6. Anxiety disorder. 7. Status post surgery, left axilla, as well as buttocks for hidradenitis in the past. 8. History of cholecystectomy and hysterectomy. SOCIAL HISTORY: The patient is a nonalcohol user. She is a current every day cigarette smoker and last used heroin on June 03 despite her ongoing Suboxone treatment. She is currently homeless but is headed later today hopefully to a long-term house. FAMILY HISTORY: Unclear but the patient states there is no family history of TB in her parents or siblings to the best of her knowledge. REVIEW OF SYSTEMS: Was done. The patient states she has a minimal headache, but it is not a severe problem. She notes she is a bit nearsighted but not changing acutely. She denies sore throat or odynophagia. No chest pain. She does note a mild cough and some plus-minus dyspnea with exertion but not worse than baseline. No nausea, vomiting, diarrhea. No symptoms. No dysuria, urgency, or frequency. She notes no significant pain in her legs or focal neurologic complaints. She does state she has some pain in her left groin and under both arms due to her hidradenitis but it is better than usual.Remainder of the ROS is negative. PHYSICAL EXAMINATION: Reveals an afebrile woman. Temp 36.7, pulse 76, respiratory rate 18, blood pressure 107/58, saturating 96% on room air. Examination of the head reveals no notable abnormalities. The eyes are without conjunctivitis or scleral icterus. Nose is normal. Oral cavity: No thrush or hairy leukoplakia. Neck is supple without adenopathy. Lungs are clear. Cardiac tones: Regular rate and rhythm without murmur. Abdomen is soft and nontender without hepatosplenomegaly, ascites or caput medusa. The axillae bilaterally have minimal changes consistent with hidradenitis in that there are a couple of small patches of erythematous, somewhat friable tissue. There are scars present in the axilla on the left consistent with resection. In the left groin just in the inguinal fold, there are some mild changes which could be consistent with hidradenitis but it is not severe. There is no suprapubic fullness. She does not have a Young catheter. The extremities are without synovitis and there is no evidence for peripheral edema or cellulitis. Neurologically, the patient is grossly intact. Overall, her mental status is rather stuporous, I would say. LABORATORY: Lab studies include white count of 4100, platelets 215. Creatinine 0.53. Her most recent liver function tests were entirely normal on June 04. Urinalysis without pyuria. Hep C antibody was reportedly negative in 2009. I do not see a more recent value. An HIV done May 17 was negative but, again, I do not see a hepatitis C. I spent some time and switched over to the [employer] computer system and was unable to find any hep C testing there either so it is very unclear to me what it means when the patient says she has hepatitis C with viral load too loaded to treat as I cannot see any evidence of a positive. Micro includes a nasal MRSA swab which is positive. Blood cultures the are negative and urine from the grew MRSA despite the fact she did not have pyuria. IMAGING STUDIES: Studies done during this admission include two chest x-rays, which basically show clear lungs. Also noted is a brain CT which shows no acute intercranial disease. IMPRESSION: This patient has both some minimal hidradenitis under both arms as well as in the left groin. She also has methicillin-resistant Staphylococcus aureus in the urine without any urinary symptoms or white count which would suggest colonization rather than infection. The presence of Staph aureus in the urine should always raise concerns about endocarditis especially in a patient like this, and it is very appropriate blood cultures were done and, fortunately, they are negative. As to whether or not she has hepatitis C, it is impossible to tell based on the laboratory work available. RECOMMENDATIONS: 1. The patient can be discharged with doxycycline orally which would be good for the hidradenitis under her arms and also will be effective for the MRSA colonization of the urine. 2. I would use nasal Bactroban as well as Bactroban under the arms topically to try and decrease or eradicate MRSA colonization. 3. I have ordered a hepatitis C genotype and viral load. 4. The patient can be discharged at any time. MTDD
--- NOTE | 2016-06-10 20:38 | PCM.DC.MED ---
Discharge Summary Date of Service June 10, 2016 Dates of Hospitalization Date of Hospital Admission Jun 05, 2016 at 00:54 Date of Discharge: June 10, 2016 Providers: Admitting Physician: Kain Kline MD Primary Care Physician: Nopcp Attending Physician: Kain Kline MD Diagnosis at Time of Discharge Diagnosis at Time of Discharge Altered Mental status due to polypharmacy, UTI (MRSA), Hydradenitis Suppurativa , Anxiety, constipation Consultations ID, General Surgery Procedures XRay, CTs & MRIs Ordering Phys: Joshua Caal MD Date of Service: 06/05/16 0126 PROCEDURE: X-RAY CHEST ONE VIEW, PORTABLE ([id number]) IMPRESSION: Placement of right IJ CVL and no pneumothorax is present. Dictated by: Floyd Fox RRA Interpreted: Steven Estrada MD on 06/05/2016 at 10 :49 Transcribed by: ESVIN on 06/05/2016 at 10:50 Approved by: Steven Estrada M.D. on 06/05/2016 at 15:40 Ordering Phys: Joshua Caal MD Date of Service: 06/05/16 0028 IMPRESSION: No acute intracranial disease process. Dictated by: Alda Willis MD, PhD on 06/05/2016 at 8:42 Approved by: Alda Willis MD, PhD on 06/05/2016 at 8:44 Ordering Phys: SABAS HEART MD Date of Service: 06/04/16 2121 IMPRESSION: No acute process. Dictated by: Shona Hardin M.D. on 06/04/2016 at 21:52 Approved by: Shona Hardin M.D. on 06/04/2016 at 21:52 Brief History Patient is obtunded after receiving Ketamine for placement of central line. Here is the HPI from the ED: "Patient is a homeless 40 year old female with a history of bipolar disorder, hydradenitis suppurativa, MRSA with multiple abscesses, endocarditis, IV heroin abuse, and recent pilonidal cyst I&D who presents to the ED complaining of a fever and malaise of known onset. She reports a fever of 103F prior to arrival, but she is afebrile on arrival to the ED. Patient reports associated chills, myalgias, dizziness, cough, and pleuritic chest pain. She reports "bright yellow " diarrhea for the past 2-3 days. The patient states that the her pilonidal cyst site has opened again and that her "tailbone is sticking out". Patient has previously had the pilonidal cyst drained 2x, most recently drained on 2016. She underwent excision of left axillary hidradenitis x2, left medial buttocks hidradenitis x1 and her pilonidal cyst on 05/02, but the patient did not perform good wound care. The patient states that she now has "bumps all over my body with green pus". Patient admits to some numbness on her left arm and right hip, with an area on her upper left arm that she states is "bulging out". In addition the patient states that today she was walking around when she suddenly forgot where she was going. She was finally found by Dr. Chen, her Suboxone provider, who told her to present to the ED. Patient states that she was using her Suboxone following discharge from the hospital but she relapsed 2 days ago, using IV heroin. Hospital Course 40 year old female with a history of bipolar disorder, hydradenitis suppurativa , MRSA with multiple abscesses, endocarditis, IV heroin abuse, and recent pilonidal cyst I&D who presents to the ED complaining of a fever and malaise of known onset. Her pilonidal wound is deep and oozing purulent material. She reports a fever of 103F prior to arrival, but she is afebrile on arrival to the ED. Patient reports associated confusion, chills, myalgias, dizziness, cough, and pleuritic chest pain. Hospital Day 4 1 Acute toxic encephalopathy. Present on admission. Resolved Likely due to side effect of medications (namely Suboxone and Klonopin). No neurological deficit to suggest Stroke or meningitis. Urinary tract infection could also cause encephalopathy - avoid further benzodiazepine or narcotics - Suboxone dose decreased to 8 mg bid: Discussed this regimen with the patient' s pain medication physician Dr. Gonzales 5/ AM, she asked us to put her on 16 mg in the morning only. Dr. Gonzales will have the prescription ready for the patient for the next 4 days at the ER main desk, patient can pick it up on her way out. Dr. Gonzales also asked for an appointment with either her (tomorrow afternoon), or someone else at [facility] within the next [address] Gonzales did not think patient should be on clonazepam and she asked for this to be discontinued. Patient may discuss with this with Dr. Gonzales tomorrow at the clinic 2 MRSA urinary tract infection. present on admission. Unclear if this is a colonization or true infection - stopping Doxycycline and Levaquin PO - Vancomycin IV, pharmacy dosing started 06/08 -Discussed plan with with Dr Payne: She is put back on the doxycycline 100 mg PO bid this a.m. and vancomycin was stopped. Dr. payne is consulted and he is in agreement. We appreciate his recommendations. -- Continue doxycycline by mouth 100 mg twice a day 3 duodenal abscess or Chronic pilonidal cyst wound, present on admission. Ongoing. - s/p I&D on 05/18/16 - Appreciate surgery consult and wound care team - Continue with "simple daily dressing change and Wound Care follow-up" -- Follow Up with The wound care as before 4 Hidradenitis suppurativa, present on admission - Doxycycline by mouth is given, the skin is much improved at the time of discharge -- Bactroban for her nose/nares and skin scripts as well as doxycycline and scripts were given 5 Suspected acute sepsis noted on earlier notes seems clinically unlikely at this time and ruled out. - Endocarditis also consider less likely with lack of positive blood cultures and normal echo results 6. Constipation, POA -- Sennosides did not work for patient this time, mag citrate was given on the day of discharge 6 Chronic Pain, ongoing. - medications reviewed and will continue with current regimen - No narcotics please, currently on Tylenol and Ibuprofen 7 Heroin Use, reported relapse 2 days ago - continue Suboxone 16 mg daily at discharge per Dr. Gonzales 8 Anxiety and Depression patient adherence to home medications is unknown - continue buspirone, Prazosin, and Seroquel 9 Nicotine dependence - Nicotine patch available 21mg patch. 10 Chronic bipolar disorder and Obsessive-compulsive disorder. Presumed stable. - Continue with home medications - Acetaminophen as needed for mild pain/fever/headache - Bowel regimen as needed - Antiemetic as needed Patient admitted under inpatient status with expected length of stay > 2 midnights for severity of present symptoms, complexities of treatment plan and risk for adverse event . Exam Vital Signs (Last) Date Time Temp Pulse Resp B/P Pulse Ox O2 Delivery O2 Flow Rate FiO2 06/10/16 06:54 36.7 76 18 107/58 96 Room Air Exam Gen.: Patient is lying in bed in no acute distress HEENT: Normocephalic, atraumatic Heart: Regular rate and rhythm, no S3-S4 murmurs Lungs: Clear to auscultation, no crackles or wheezes Abdomen soft nontender pain to tenderness below the umbilicus, normal bowel sounds Skin: Much improved appearance of her hidradenitis, pilonidal cyst abscess appears clean and dry. She has another small lesion on the left side of the gluteal cleft which also appears nondraining Neuro: No focal deficits Psych; negative for anxiety Test 06/04/16 23:00 06/04/16 23:03 06/05/16 01:27 06/05/16 06:00 Urine Color Yellow (YELLOW) Urine Appearance Cloudy (CLEAR,HAZY) Urine pH 5.5 (5.0-8.0) Urine Specific [place] 1.030 (1.003-1.035) Urine Protein 30mg/dL (NEG,TRACE) Urine Glucose (UA) Negativemg/dL (NEGATIVE) Urine Ketones Negativemg/dL (NEGATIVE) Urine Occult Blood Small (NEGATIVE) Urine Nitrite Negative (NEGATIVE) Urine Bilirubin Negative (NEGATIVE) Urine Urobilinogen Normalmg/dL (NORMAL) Urine Leukocyte Esterase Negative (NEGATIVE) Urine RBC 0-2/hpf (0-2) Urine WBC 0-5/hpf (0-5) Urine Epithelial Cells Many/hpf (NONE-MOD) Urine Crystals None seen (NONE SEEN) Urine Bacteria Many/hpf (NONE-FEW) Urine Hyaline Casts None/lpf (NONE) Urine Granular Casts None seen (NONE SEEN) Urine Waxy Casts None seen (NONE SEEN) Urine Red Blood Cell Casts None seen (NONE SEEN) Urine White Blood Cell Casts None seen (NONE SEEN) Urine Mucus None seen (None Seen) Urine Trichomonas None seen (NONE SEEN) Urine Yeast None (NONE SEEN) Urinalysis Comment None Urine Culture Reflexed Indicated Erythrocyte Sedimentation Rate 15mm/hr (0-32) Hemoglobin A1c 5.5% (4.8-5.6) Phosphorus Level 4.3mg/dL (2.5-4.9) Magnesium Level 1.9mg/dL (1.6-2.6) Total Bilirubin 0.2mg/dL (0.0-1.2) Aspartate Amino Transf (AST/SGOT) 21U/L (0-50) Alanine Aminotransferase (ALT/SGPT) 20U/L (0-32) Alkaline Phosphatase 88U/L (25-150) Troponin T 0.010ug/L (0.0-0.011) Pro-B-Type Natriuretic Peptide 40.99pg/mL (0-130) Total Protein 7.2g/dL (6.4-8.4) Albumin 3.9g/dL (3.4-5.0) Alcohols 10mg/dL (0-10) Prothrombin Time 10.0sec (8.1-12.5) Prothromb Time International Ratio 0.94ratio Activated Partial Thromboplast Time 28.5sec (22.8-33.0) D-Dimer < 0.50mg/L FEU (<0.50) Neutrophils (%) (Auto) 47.9% (40-74) Lymphocytes (%) (Auto) 36.8% (14-46) Monocytes (%) (Auto) 8.0% (4-12) Eosinophils (%) (Auto) 5.6% (0-5) Basophils (%) (Auto) 0.6% (0-3) Test 06/05/16 10:18 06/06/16 04:05 06/08/16 05:00 06/09/16 17:55 Lactic Acid Level 0.4mmol/L (0.4-2.0) White Blood Count 4.1th/mm3 (3.8-10.1) Red Blood Count 3.69mil/mm3 (3.90-5.20) Hemoglobin 10.6g/dL (12.0-15.6) Hematocrit 33.1% (35.0-46.0) Mean Corpuscular Volume 89.7fL (81-100) Mean Corpuscular Hemoglobin 28.7pg (27.0-35.0) Mean Corpuscular Hemoglobin Concent 32.0% (32.0-37.0) Red Cell Distribution Width 13.4% (12.3-15.4) Platelet Count 215bil/L (150-400) Sodium Level 139mEq/L (134-144) Potassium Level 4.6mEq/L (3.5-5.2) Chloride Level 105mEq/L (97-108) Carbon Dioxide Level 26mmol/L (18-29) Blood Urea Nitrogen 12mg/dL (6-24) Estimat Glomerular Filtration Rate 200mL/min (>59) Glucose Level 100mg/dL (60-99) Calcium Level 8.5mg/dL (8.5-10.1) Procalcitonin 0.05ng/mL (0.00-0.08) Vancomycin Level Trough 17.6mcg/mL Test 06/10/16 05:30 Creatinine 0.53mg/dL (0.57-1.00) Microbiology Results blood and urine cultures pending Discharge Medications Discharge Medications Buprenorphine/Naloxone 8-2 mg (Buprenorphine/Naloxone 8-2 mg) 1 Each Tab.subl 2 TAB PO QAM (Reported) Buspirone (Buspirone) 10 Mg Tablet 10 MG PO DAILY (Reported) Doxycycline Hyclate (Doxycycline Hyclate) 100 Mg Tablet 100 MG PO BID Prescribed by: YANA GORDON DO Fluticasone/Salmeterol (Advair 250-50 Diskus) 60 Puff/Inh Disk 1 PUFF IH BID ( Reported) [place] Carbonate ([place] Carbonate) 150 Mg Capsule 300 MG PO TID (Reported) Mupirocin (Mupirocin Ointment) 22 Gm Oint...g. 1 APPLIC NASAL ONCE Prescribed by: YANA GORDON DO Mupirocin (Mupirocin Ointment) 22 Gm Oint...g. 1 APPLIC TOPICAL BID Prescribed by: YANA GORDON DO Nicotine (Nicoderm Cq 14 mg/24 hr) 1 Each Patch.td24 1 EACH TD DAILY Prescribed by: DONN LYMAN DO Nicotine (Nicoderm Cq 7 mg/24 hr) 1 Each Patch.td24 1 EACH TD DAILY Prescribed by: DONN LYMAN DO Nicotine 21 mg/24 hr Patch (Nicotine 21 mg/24 hr Patch) 1 Each Patch.td24 1 PATCH TOPICAL DAILY Prescribed by: DONN LYMAN DO Paroxetine (Paroxetine) 10 Mg Tablet 10 MG PO QAM (Reported) Prazosin (Prazosin) 1 Mg Capsule 1 MG PO HS (Reported) Quetiapine Fumarate (Seroquel) 300 Mg Tablet 300 MG PO HS (Reported) As needed Albuterol HFA (Proair HFA) 8.5 Gm Hfa.aer.ad 2 PUFFS INHALATION BID PRN PRN For Shortness of Breath (Reported) Sennosides (Senna) 8.6 Mg Tablet 17.2 MG PO BID PRN PRN For Constipation Prescribed by: YANA GORDON DO Followup Plan Follow-up plan Please follow up with Dr. Gonzales in 1-4 days at [facility]. She will be there tomorrow afternoon. Please follow up with your PCP in 7-10 days F/U with Wound care for packing of pilonydal cyst as before. Discharge Diet: No restrictions Discharge Activity: No restrictions Patient Instructions Please note your suboxne is changed to 16 mg just in the AM. Per Dr. Gonzales, Clonazepam is not your home medication, please discuss this with her tomorrow at the clinic. Please apply bactroban over skin lesions and nares as prescribed till you see your pcp Yana Gordon DO June 10, 2016 13:02
[2016-06-11] MEDS ORDERED: FLUC150T3 PO (23:17)
[2016-06-11] MEDS ORDERED: POLY17PO6 PO (23:17)
[2016-06-11] MEDS ORDERED: DOCU-41 PO (23:17)
[2016-06-11] MEDS ORDERED: BUPR1TAB36 SL (23:18)
== END 2016-06-10 14:15 | disposition home or self-care (01) | DRG 689 ==
LOC: SED 21:03 → OBSVTOIN 06-05 00:54 → OSC 06-05 00:54
PROVIDERS: ADMIT Hospitalist; ATTEND Hospitalist
PROC: 02HV33Z Insertion of Infusion Device into Superior Vena Cava, Percutaneous Approach (ICD-10-PCS; principal; 2016-06-05)
DX: N39.0 Urinary tract infection, site not specified (principal); G92 Toxic encephalopathy; F11.20 Opioid dependence, uncomplicated; F31.9 Bipolar disorder, unspecified; F17.200 Nicotine dependence, unspecified, uncomplicated; L73.2 Hidradenitis suppurativa; G89.29 Other chronic pain; F41.8 Other specified anxiety disorders; F42.9 Obsessive-compulsive disorder, unspecified; B95.62 Methicillin resistant Staphylococcus aureus infection as the cause of diseases classified elsewhere; T40.1X1A Poisoning by heroin, accidental (unintentional), initial encounter; L05.91 Pilonidal cyst without abscess; Z79.51 Long term (current) use of inhaled steroids; Z88.0 Allergy status to penicillin; Z59.0 Homelessness; Z98.890 Other specified postprocedural states; Y92.9 Unspecified place or not applicable

== ENCOUNTER 2016-06-11 19:35 | Emergency (ER) | payer OTHER ==
[~2016-06-11] VITALS: Ht 170.2 cm; Wt 127.3 kg
[~2016-06-11 19:35] MED LIST changes: -BUPR1TAB36 SL; -CEPH500C PO; -CLON2TAB PO; +DOXY100T2 PO; +MUPI22OI2 NASAL; +MUPI22OI2 TOPICAL; -OXYC5TAB72 PO; +PARO10TA2 PO; -PHEN-777 PO; +SENN-133 PO; -TRAM50TA2 PO
[2016-06-11 20:21] VITALS: BP 110/75; PULSE 58; RESP 16; O2SAT 100
--- NOTE | 2016-06-11 21:19 | ED.REPORT ---
HPI-General Illness Date of Service June 11, 2016 ED Provider: Dr. John Moore M.D. A 40 year old female with a medical history including bipolar disorder, PTSD, MRSA abscesses, hydradenitis suppurativa, and opiate use currently on Suboxone presents to the ED reporting constipation onset eight days ago. Associated symptoms include nausea, vomiting (onset this morning), imbalance, dizziness, and generalized edema. The patient also reports an open sore on her buttocks with green and brown discharge as well as developing pain around a recent central line site. She denies other symptoms. The patient was discharged from the hospital two days ago after a five night stay for UTI (MRSA), hydradenitis suppurativa, and altered mental status due to polypharmacy. Two weeks ago the patient was switched from Suboxone to Subutex due to Suboxone causing abdominal pain, but she began taking Suboxone again yesterday with her most recent dose last night. Nursing Notes Stated Complaint: POSSIBLE MRSA Chief Complaint: General Complaint Nursing Notes Reviewed: Yes Allergies: Coded Allergies: Penicillins (Verified Allergy, Severe, Anaphylaxis, 06/12/16) codeine (Verified Allergy, Severe, Rash, 06/12/16) 05/06/14 -PATIENT RECEIVED DILAUDID X MANY DOSES iodine (Verified Allergy, Unknown, 06/12/16) miconazole (Verified Allergy, Unknown, Hives, 06/12/16) trazodone (Verified Allergy, Unknown, 06/12/16) Scheduled Buprenorphine/Naloxone 8-2 mg (Buprenorphine/Naloxone 8-2 mg) 1 Each Tab.subl 2 TAB PO QAM Buprenorphine/Naloxone 8-2 mg (Buprenorphine/Naloxone 8-2 mg) 1 Each Tab.subl 3 TABLET SL DAILY Buspirone (Buspirone) 10 Mg Tablet 10 MG PO DAILY Doxycycline Hyclate (Doxycycline Hyclate) 100 Mg Tablet 100 MG PO BID Fluconazole (Fluconazole) 150 Mg Tablet 150 MG PO ONCE Fluticasone/Salmeterol (Advair 250-50 Diskus) 60 Puff/Inh Disk 1 PUFF IH BID [place] Carbonate ([place] Carbonate) 150 Mg Capsule 300 MG PO TID Mupirocin (Mupirocin Ointment) 22 Gm Oint...g. 1 APPLIC NASAL ONCE Mupirocin (Mupirocin Ointment) 22 Gm Oint...g. 1 APPLIC TOPICAL BID Nicotine (Nicoderm Cq 14 mg/24 hr) 1 Each Patch.td24 1 EACH TD DAILY Nicotine (Nicoderm Cq 7 mg/24 hr) 1 Each Patch.td24 1 EACH TD DAILY Nicotine 21 mg/24 hr Patch (Nicotine 21 mg/24 hr Patch) 1 Each Patch.td24 1 PATCH TOPICAL DAILY Paroxetine (Paroxetine) 10 Mg Tablet 10 MG PO QAM Prazosin (Prazosin) 1 Mg Capsule 1 MG PO HS Quetiapine Fumarate (Seroquel) 300 Mg Tablet 300 MG PO HS Scheduled PRN Albuterol HFA (Proair HFA) 8.5 Gm Hfa.aer.ad 2 PUFFS INHALATION BID PRN PRN For Shortness of Breath Clonazepam (Clonazepam) 2 Mg Tablet 2 MG PO BID PRN PRN For Anxiety Docusate Sodium (Colace) 100 Mg Capsule 100 MG PO BID PRN PRN For Constipation Polyethylene Glycol 3350 (Miralax) 17 Gm Powd.pack 17 GM PO BID PRN PRN For Constipation Sennosides (Senna) 8.6 Mg Tablet 17.2 MG PO BID PRN PRN For Constipation General Time Seen by MD: 21:18 Chief Complaint Other (Constipation) Hx Obtained From: Patient Arrived By: Walk-in Sudden in Onset?: Yes Onset Occurred: More than a week ago... (8 days) Symptom Duration: Since onset Severity: Current: No pain currently Severity: Maximum: No pain Pertinent Negative: Relieved by nothing Context Related History: Reports Drug dependence, Reports Psychiatric history, Reports Recent infection Recent Healthcare: Recent doctor visit, Recent hospitalization Similar Sx Previous: Yes Past Medical History Past Medical History Notes: [facility] Recent start of suboxone 04/07/2016 Past Medical History Bipolar disorder. PTSD. History of MRSA abscesses. Nicotine dependence, active with smoking cigarettes. Morbid obesity. Sepsis Endocarditis Hydradenitis suppurativa Reports: Depression, Migraines Past Surgical History saliva gland removal Adenoidectomy 05/02: Excision of left axillary hidradenitis x2, left medial buttocks hidradenitis x1 and pilonidal cyst. Subsequent I&D on 05/18/2016. Reports: Cholecystectomy, Hysterectomy, Tonsillectomy Smoking History Current Every Day Smoker Social History Homeless On Suboxone (06/11/16) Alcohol Use: Denies alcohol use Drug Use: In recovery, IV drugs, Meth Other Social History: Poor social support, Local resident, Homeless Ambulatory Status Independent Review of Systems + Imbalance, open sore on buttocks with green and brown discharge Full Review of Systems Constitutional: Denies: Fever Respiratory: Denies: Non-productive cough, Shortness of breath Cardiovascular: Reports: Edema (Generalized) GI: Reports: Constipation, Nausea, Vomiting Musculoskeletal: Reports: Neck pain (Around central line site) Neurologic: Reports: Dizziness Complete sys rev & neg: except as marked. Physical Exam Vital Signs Vital Signs Date Time Temp Pulse Resp B/P Pulse Ox O2 Delivery O2 Flow Rate FiO2 06/11/16 23:26 36.6 60 16 112/74 99 Room Air 06/11/16 20:21 36.2 58 16 110/75 100 Room Air Initial VS: Reviewed, Vital signs normal Head / Eyes: Atraumatic, Normocephalic ENT: Conjunctiva normal, No scleral icterus Neurologic: Alert, Oriented Psychiatric: Mood/affect normal, Behavior normal General/Constitutional: Awake, Alert Neck: Supple, Full range of motion Right internal jugular central line site appears normal Respiratory / Chest: Breath sounds NL, Breath sounds = bilat, No respiratory distress Cardiovascular: Heart rate NL, Regular rhythm, Heart sounds NL Abdomen: Soft, Non-tender Skin: Warm, Dry Abscess Notes: Open, healing abscess overlying sacrum Multiple skin lesions in various stages of healing Interpretation & Diagnostics Lab Results Interpretation Result Diagram: 06/11/16219906/11/16 220 Test 06/11/16 22:00 White Blood Count 4.7th/mm3 (3.8-10.1) Red Blood Count 5.58mil/mm3 (3.90-5.20) Hemoglobin 16.6g/dL (12.0-15.6) Hematocrit 48.9% (35.0-46.0) Mean Corpuscular Volume 87.6fL (81-100) Mean Corpuscular Hemoglobin 29.7pg (27.0-35.0) Mean Corpuscular Hemoglobin Concent 33.9% (32.0-37.0) Red Cell Distribution Width 13.6% (12.3-15.4) Platelet Count 125bil/L (150-400) Neutrophils (%) (Auto) 73.8% (40-74) Lymphocytes (%) (Auto) 14.3% (14-46) Monocytes (%) (Auto) 3.6% (4-12) Eosinophils (%) (Auto) 7.9% (0-5) Basophils (%) (Auto) 0.2% (0-3) Band Neutrophils % 0% (1-5) Sodium Level 134mEq/L (134-144) Potassium Level 4.3mEq/L (3.5-5.2) Chloride Level 96mEq/L (97-108) Carbon Dioxide Level 25mmol/L (18-29) Blood Urea Nitrogen 15mg/dL (6-24) Creatinine 0.49mg/dL (0.57-1.00) Estimat Glomerular Filtration Rate 200mL/min (>59) Glucose Level 88mg/dL (60-99) Lactic Acid Level 1.1mmol/L (0.4-2.0) Calcium Level 9.0mg/dL (8.5-10.1) Magnesium Level 1.9mg/dL (1.6-2.6) Total Bilirubin 0.3mg/dL (0.0-1.2) Aspartate Amino Transf (AST/SGOT) 25U/L (0-50) Alanine Aminotransferase (ALT/SGPT) 22U/L (0-32) Alkaline Phosphatase 80U/L (25-150) Total Protein 7.1g/dL (6.4-8.4) Albumin 3.7g/dL (3.4-5.0) Lab Results Interpretation: hemoconcentration Re-Eval/Medical Decision Med Decision/Clinical Course 40-year-old female with a history of bipolar illness and polysubstance abuse. She is currently clean and sober on Suboxone. She however has multiple healing abscesses which she was previously hospitalized for. She feels worse but all objective parameters say that she is getting better including normal labs, normal vital signs, and no overt undrained abscesses, and no significant surrounding erythema or drainage from the ones that were drained. She is being discharged home to continue the same antibiotics. Source of Hx: Old records Time of Eval: 23:02 Patient Status: Condition improved Re-Evaluation/Progress Note: Discussed with patient lab results, diagnosis, and plan for discharge. Follow-up and return to the ER instructions given. Patient agrees with plan for care and all questions were addressed. Counseled Regarding: Diagnosis, Lab results, Need for follow-up, When/why to return to ED Discharge & Departure Primary Impression: Abscess of multiple sites Additional Impressions: Constipation Constipation type: unspecified constipation type Qualified Code: K59.00 - Constipation, unspecified Opioid use disorder, severe, in early remission Disposition: Home Discharge Condition All VS Reviewed: Yes Condition: Improved Additional Instructions: Your laboratory work today was reassuring for any serious illness. Continue taking your antibiotics. ANGELA or similar stool softener, prescription written. MiraLAX 17 g capful of powder mixed with 8 ounces of water once or twice daily as needed. Diflucan 150 mg orally 1, #1 prescribed. Refill Suboxone 8/ 2 tabs, 3 tabs sublingual daily, #12 prescribed. Follow up with me as scheduled this week. Referrals: NOPCP (PCP) Scribe Attestation Portions of this note were transcribed by Daxa Christine. I, Dr. Moore, personally performed the history, physical exam, and medical decision-making; I reviewed and confirmed the accuracy of the information in the transcribed note. Signed by: David Porter, 06/12/2016, 00:35 John Moore MD June 11, 2016 21:19 DAXA CHRISTINE June 11, 2016 21:44
[2016-06-11] MEDS ORDERED: Buprenorphine 2 mg SL Tablet SL ONE (21:40)
[2016-06-11 22:10] LABS: Mean Corpuscular Hemoglobin 29.7 pg (27.0-35.0); Mean Corpuscular Volume 87.6 fL (81-100); NEUTROPHILS % (AUTO) 73.8 % (40-74); Platelet Count 125 bil/L (150-400)
[2016-06-11 22:11] LABS: BASOPHILS % (AUTO) 0.2 % (0-3); EOSINOPHILS % (AUTO) 7.9 % (0-5); MONOCYTES % (AUTO) 3.6 % (4-12)
[2016-06-11 22:32] LABS: Magnesium 1.9 mg/dL (1.6-2.6)
[2016-06-11] MEDS ORDERED: FLUC150T3 PO (23:17)
[2016-06-11] MEDS ORDERED: DOCU-41 PO (23:17)
[2016-06-11] MEDS ORDERED: POLY17PO6 PO (23:17)
[2016-06-11] MEDS ORDERED: BUPR1TAB36 SL (23:18)
[2016-06-11 23:26] VITALS: BP 112/74; PULSE 60; RESP 16; O2SAT 99
[2016-06-12] MEDS ORDERED: KLO2T PO (12:48)
== END 2016-06-11 23:27 | disposition home or self-care (01) ==
LOC: SED 19:35
DX: L02.31 Cutaneous abscess of buttock (principal); L02.412 Cutaneous abscess of left axilla; K59.00 Constipation, unspecified; F11.10 Opioid abuse, uncomplicated; F31.9 Bipolar disorder, unspecified; F43.10 Post-traumatic stress disorder, unspecified; F17.200 Nicotine dependence, unspecified, uncomplicated; F32.9 Major depressive disorder, single episode, unspecified; Z88.0 Allergy status to penicillin; Z86.14 Personal history of Methicillin resistant Staphylococcus aureus infection; Z59.0 Homelessness; Z88.5 Allergy status to narcotic agent; Z88.8 Allergy status to other drugs, medicaments and biological substances

== ENCOUNTER 2016-06-12 12:24 | Emergency (ER) | payer OTHER ==
[~2016-06-12] VITALS: Ht 170.2 cm; Wt 127.3 kg
[~2016-06-12 12:24] MED LIST changes: +BUPR1TAB36 SL; +DOCU-41 PO; +FLUC150T3 PO; +POLY17PO6 PO
[2016-06-12 12:28] VITALS: BP 115/80; PULSE 75; RESP 18; O2SAT 99
--- NOTE | 2016-06-12 12:46 | ED.REPORT ---
HPI-Medication Refill Date of Service June 12, 2016 ED Provider: History of Present Illness: in the hospital here for abscess and sepis. is going to be followed by the wound care clinic. has an appointment on Friday. Has an appointment tomorrow with [facility]. At [facility]. packing came out yesterday. taking suboxone and ibuprofen by linsey, follow up tomorrow at 8 am. appointment with sanjeev in 3 weeks Nursing Notes Stated Complaint: MED'S Chief Complaint: General Complaint Nursing Notes Reviewed: Yes Allergies: Coded Allergies: Penicillins (Verified Allergy, Severe, Anaphylaxis, 06/12/16) codeine (Verified Allergy, Severe, Rash, 06/12/16) 05/06/14 -PATIENT RECEIVED DILAUDID X MANY DOSES iodine (Verified Allergy, Unknown, 06/12/16) miconazole (Verified Allergy, Unknown, Hives, 06/12/16) trazodone (Verified Allergy, Unknown, 06/12/16) Scheduled Buprenorphine/Naloxone 8-2 mg (Buprenorphine/Naloxone 8-2 mg) 1 Each Tab.subl 2 TAB PO QAM Buprenorphine/Naloxone 8-2 mg (Buprenorphine/Naloxone 8-2 mg) 1 Each Tab.subl 3 TABLET SL DAILY Buspirone (Buspirone) 10 Mg Tablet 10 MG PO DAILY Doxycycline Hyclate (Doxycycline Hyclate) 100 Mg Tablet 100 MG PO BID Fluconazole (Fluconazole) 150 Mg Tablet 150 MG PO ONCE Fluticasone/Salmeterol (Advair 250-50 Diskus) 60 Puff/Inh Disk 1 PUFF IH BID [place] Carbonate ([place] Carbonate) 150 Mg Capsule 300 MG PO TID Mupirocin (Mupirocin Ointment) 22 Gm Oint...g. 1 APPLIC NASAL ONCE Mupirocin (Mupirocin Ointment) 22 Gm Oint...g. 1 APPLIC TOPICAL BID Nicotine (Nicoderm Cq 14 mg/24 hr) 1 Each Patch.td24 1 EACH TD DAILY Nicotine (Nicoderm Cq 7 mg/24 hr) 1 Each Patch.td24 1 EACH TD DAILY Nicotine 21 mg/24 hr Patch (Nicotine 21 mg/24 hr Patch) 1 Each Patch.td24 1 PATCH TOPICAL DAILY Paroxetine (Paroxetine) 10 Mg Tablet 10 MG PO QAM Prazosin (Prazosin) 1 Mg Capsule 1 MG PO HS Quetiapine Fumarate (Seroquel) 300 Mg Tablet 300 MG PO HS Scheduled PRN Albuterol HFA (Proair HFA) 8.5 Gm Hfa.aer.ad 2 PUFFS INHALATION BID PRN PRN For Shortness of Breath Clonazepam (Clonazepam) 2 Mg Tablet 2 MG PO BID PRN PRN For Anxiety Docusate Sodium (Colace) 100 Mg Capsule 100 MG PO BID PRN PRN For Constipation Polyethylene Glycol 3350 (Miralax) 17 Gm Powd.pack 17 GM PO BID PRN PRN For Constipation Sennosides (Senna) 8.6 Mg Tablet 17.2 MG PO BID PRN PRN For Constipation General Time Seen by Provider: 12:46 Chief Complaint Ran out of medication Hx Obtained From: Patient Past Medical History Past Medical History Notes: [facility] Recent start of suboxone 04/07/2016 Past Medical History Bipolar disorder. PTSD. History of MRSA abscesses. Nicotine dependence, active with smoking cigarettes. Morbid obesity. Sepsis Endocarditis Hydradenitis suppurativa Reports: Depression, Migraines Past Surgical History saliva gland removal Adenoidectomy 05/02: Excision of left axillary hidradenitis x2, left medial buttocks hidradenitis x1 and pilonidal cyst. Subsequent I&D on 05/18/2016. 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 Ambulatory Status Independent Review of Systems Basic Review of Systems Eyes: Vision NL, No discharge Hematologic: No bleeding, No bruising Psychiatric: Normal thought content Physical Exam Initial Vital Signs Vital Signs (First) Date Time Temp Pulse Resp B/P Pulse Ox O2 Delivery O2 Flow Rate FiO2 06/12/16 12:28 36.8 75 18 115/80 99 Room Air Initial VS: Reviewed, Vital signs normal General/Constitutional: Well-developed, Well-nourished Head / Eyes: Atraumatic, Normocephalic, PERRL ENT: Mucous membranes moist, Conjunctiva normal, No scleral icterus Neck: Supple, Non-tender, Full range of motion Respiratory: Breath sounds normal, Clear to auscultation, No respiratory distress Cardiovascular: Regular rate & rhythm, Heart sounds normal, Intact distal pulses Abdomen / GI: Soft, Non-tender, No guarding, No rebound, No distention Back: No CVA tenderness Lymphatic: No lymphadenopathy Extremities: Vascular intact, Neuro intact, No swelling, No tenderness Skin: Warm, Dry, No cyanosis Neurologic: Alert, Oriented, Nonfocal Psychiatric: Mood/affect normal, Behavior normal, Normal thought content General/Constitutional: Awake, Alert, No acute distress, Well appearing, Well developed, Well hydrated Respiratory / Chest: Atraumatic, Breath sounds NL, Breath sounds = bilat, No respiratory distress Cardiovascular: Heart rate NL, Regular rhythm, Heart sounds NL, No gallop Procedures Procedure Notes: pilondial site is well healing with minimal depth. repacked. Re-Evaluation & MDM Med Decision/Clinical Course 40 year old female with long hx of multiple abscess and IV heroin ad meth use. Patient is recently on suboxone with connection to [facility]. Presents today for refill of her psych meds. States she will be following with Dr. Kenyetta Quach, states she has an appointment in 3 weeks.No sign of new abscess or infection. medications refilled Patient Discharge & Departure Impression: Primary Impression: Visit for wound check Additional Impression: Medication refill Disposition: Home Additional Instructions: The site looks great.Your wound has been repacked. Please keep the appointment at the wound clinic as scheduled. Keep the appointment with [facility]. Please let Dr. Moore you are taking clonazapam also. Congratulations on staying clean! Do 1 day at a time. Your medications of lithium 300 mg 3 capsules in the evening, clonazapam 2 mg BID, seroquel 300 mg 1 tab in evening, buspar 10 mg 1 po BID and pra zosin 1 mg in the evening has been refilled for 1 month. Use bactroban to the lymph node in the groin. If it gets red or hot, return to the ER. Referrals: [facility] ([facility]) [facility] Provider for [facility]: Sheyla hCen MD copies to: [facility] ; [facility] Nohemi Noland June 12, 2016 12:46
[2016-06-12] MEDS ORDERED: KLO2T PO (12:48)
== END 2016-06-12 13:21 | disposition home or self-care (01) ==
LOC: SED 12:24
DX: Z48.01 Encounter for change or removal of surgical wound dressing (principal); Z76.0 Encounter for issue of repeat prescription; Z86.19 Personal history of other infectious and parasitic diseases

== ENCOUNTER 2016-06-29 21:14 | Emergency (ER) | payer OTHER ==
[~2016-06-29] VITALS: Ht 170.2 cm; Wt 84.1 kg
[~2016-06-29 21:14] MED LIST changes: +KLO2T PO
[2016-06-29 21:19] VITALS: BP 118/84; PULSE 84; RESP 12; O2SAT 98
[2016-06-29 21:56] LABS: BASOPHILS % (AUTO) 1.2 % (0-3); EOSINOPHILS % (AUTO) 4.9 % (0-5); MONOCYTES % (AUTO) 10.6 % (4-12); Mean Corpuscular Hemoglobin 29.7 pg (27.0-35.0); Mean Corpuscular Volume 90.7 fL (81-100); NEUTROPHILS % (AUTO) 50.2 % (40-74); Platelet Count 332 bil/L (150-400)
--- NOTE | 2016-06-29 22:00 | ED.REPORT ---
HPI-General Illness Date of Service June 29, 2016 ED Provider: Dr. Blancas Pt is a 40 y/o female w/ a hx of asthma, substance abuse, previous remote endocarditis, presenting to the ED c/o CP that is sharp and associated with coughing and productive cough with brownish colored sputum onset 2 days ago. She c/o associated subjective fever, fatigue. The patient is an everyday smoker. She has had similar symptoms previously related to exacerbation of her underlying asthma. Not currently using IV drugs. Nursing Notes Stated Complaint: COUGH, CHEST PAIN Chief Complaint: Chest Pain Nursing Notes Reviewed: Yes Allergies: Coded Allergies: Penicillins (Verified Allergy, Severe, Anaphylaxis, 06/12/16) codeine (Verified Allergy, Severe, Rash, 06/12/16) 05/06/14 -PATIENT RECEIVED DILAUDID X MANY DOSES iodine (Verified Allergy, Unknown, 06/12/16) miconazole (Verified Allergy, Unknown, Hives, 06/12/16) trazodone (Verified Allergy, Unknown, 06/12/16) Scheduled Buprenorphine/Naloxone 8-2 mg (Buprenorphine/Naloxone 8-2 mg) 1 Each Tab.subl 2 TAB PO QAM Buprenorphine/Naloxone 8-2 mg (Buprenorphine/Naloxone 8-2 mg) 1 Each Tab.subl 3 TABLET SL DAILY Buspirone (Buspirone) 10 Mg Tablet 10 MG PO DAILY Doxycycline Hyclate (Doxycycline Hyclate) 100 Mg Tablet 100 MG PO BID Fluconazole (Fluconazole) 150 Mg Tablet 150 MG PO ONCE Fluticasone/Salmeterol (Advair 250-50 Diskus) 60 Puff/Inh Disk 1 PUFF IH BID [place] Carbonate ([place] Carbonate) 150 Mg Capsule 300 MG PO TID Mupirocin (Mupirocin Ointment) 22 Gm Oint...g. 1 APPLIC NASAL ONCE Mupirocin (Mupirocin Ointment) 22 Gm Oint...g. 1 APPLIC TOPICAL BID Nicotine (Nicoderm Cq 14 mg/24 hr) 1 Each Patch.td24 1 EACH TD DAILY Nicotine (Nicoderm Cq 7 mg/24 hr) 1 Each Patch.td24 1 EACH TD DAILY Nicotine 21 mg/24 hr Patch (Nicotine 21 mg/24 hr Patch) 1 Each Patch.td24 1 PATCH TOPICAL DAILY Paroxetine (Paroxetine) 10 Mg Tablet 10 MG PO QAM Prazosin (Prazosin) 1 Mg Capsule 1 MG PO HS Quetiapine Fumarate (Seroquel) 300 Mg Tablet 300 MG PO HS Scheduled PRN Albuterol HFA (Proair HFA) 8.5 Gm Hfa.aer.ad 2 PUFFS INHALATION BID PRN PRN For Shortness of Breath Clonazepam (Clonazepam) 2 Mg Tablet 2 MG PO BID PRN PRN For Anxiety Docusate Sodium (Colace) 100 Mg Capsule 100 MG PO BID PRN PRN For Constipation Polyethylene Glycol 3350 (Miralax) 17 Gm Powd.pack 17 GM PO BID PRN PRN For Constipation Sennosides (Senna) 8.6 Mg Tablet 17.2 MG PO BID PRN PRN For Constipation General Time Seen by MD: 21:59 Chief Complaint Cough Hx Obtained From: Patient Arrived By: Walk-in Sudden in Onset?: No Onset Occurred: 2 days ago Symptom Duration: Since onset Location: : Chest Quality: Painful, Pleuritic Radiation: : Does not radiate Severity: Current: Moderate Severity: Maximum: Moderate Past Medical History Past Medical History Notes: [facility] Recent start of suboxone 04/07/2016 Past Medical History Asthma Bipolar disorder. PTSD. History of MRSA abscesses. Nicotine dependence, active with smoking cigarettes. Morbid obesity. Sepsis Endocarditis Hydradenitis suppurativa Reports: Depression, Migraines Past Surgical History saliva gland removal Adenoidectomy 05/02: Excision of left axillary hidradenitis x2, left medial buttocks hidradenitis x1 and pilonidal cyst. Subsequent I&D on 05/18/2016. 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 Physical Exam Vital Signs Vital Signs Date Time Temp Pulse Resp B/P Pulse Ox O2 Delivery O2 Flow Rate FiO2 06/29/16 21:19 37.7 84 12 118/84 98 Room Air Initial VS: Reviewed Head / Eyes: Atraumatic, Normocephalic, PERRL ENT: Mucous membranes moist, Conjunctiva normal, No scleral icterus Neck: Supple, Full range of motion Cardiovascular: Regular rate & rhythm, Heart sounds normal, Intact distal pulses Abdomen / GI: Soft, Non-tender Extremities: Vascular intact, Neuro intact, No swelling, No tenderness Skin: Warm, Dry, No cyanosis Neurologic: Alert, Oriented, Nonfocal Psychiatric: Mood/affect normal, Behavior normal, Normal thought content General/Constitutional: Awake, Alert, No acute distress, Cooperative, Not toxic appearing Respiratory / Chest: Atraumatic, Breath sounds = bilat, No respiratory distress , No retractions, No stridor Scattered expiratory wheezing Decreased breath sounds throughout all lung mahajan Coarse breath sounds bilat Interpretation & Diagnostics Lab Results Interpretation Result Diagram: 06/29/16213906/29/162139 Test 06/29/16 21:40 06/29/16 21:45 White Blood Count 9.7th/mm3 (3.8-10.1) Red Blood Count 4.28mil/mm3 (3.90-5.20) Hemoglobin 12.7g/dL (12.0-15.6) Hematocrit 38.8% (35.0-46.0) Mean Corpuscular Volume 90.7fL (81-100) Mean Corpuscular Hemoglobin 29.7pg (27.0-35.0) Mean Corpuscular Hemoglobin Concent 32.7% (32.0-37.0) Red Cell Distribution Width 14.3% (12.3-15.4) Platelet Count 332bil/L (150-400) Neutrophils (%) (Auto) 50.2% (40-74) Lymphocytes (%) (Auto) 32.9% (14-46) Monocytes (%) (Auto) 10.6% (4-12) Eosinophils (%) (Auto) 4.9% (0-5) Basophils (%) (Auto) 1.2% (0-3) Sodium Level 135mEq/L (134-144) Potassium Level 4.5mEq/L (3.5-5.2) Chloride Level 100mEq/L (97-108) Carbon Dioxide Level 25mmol/L (18-29) Blood Urea Nitrogen 13mg/dL (6-24) Creatinine 0.53mg/dL (0.57-1.00) Estimat Glomerular Filtration Rate 183mL/min (>59) Glucose Level 92mg/dL (60-99) Calcium Level 9.1mg/dL (8.5-10.1) Magnesium Level 1.8mg/dL (1.6-2.6) Total Bilirubin 0.2mg/dL (0.0-1.2) Aspartate Amino Transf (AST/SGOT) 18U/L (0-50) Alanine Aminotransferase (ALT/SGPT) 18U/L (0-32) Alkaline Phosphatase 87U/L (25-150) Troponin T 0.010ug/L (0.0-0.011) Total Protein 6.8g/dL (6.4-8.4) Albumin 3.5g/dL (3.4-5.0) Hold [place] Top Tube Received (Received) Hold Sin Top Tube Received (Received) Hold Urine Received (Received) ECG Interpretation Time: 22:54 Interpreted by: ED physician Normal ECG Interpretation: Normal ECG w/ rate of... (81), Normal rate, Normal sinus rhythm, No acute ischemic changes, Normal QRS, Normal axis, Normal intervals, Adequate tracing X-Ray Chest Interpretation View: Portable, AP & lat Interpretation / Wet Read by: Wet read ED physician NL X-Ray Chest Findings: No infiltrate, No acute disease Re-Eval/Medical Decision Med Decision/Clinical Course Pt is a 40 y/o female w/ a hx of asthma, substance abuse, previous remote endocarditis, presenting to the ED c/o CP that is sharp and associated with coughing and productive cough with brownish colored sputum onset 2 days ago. She c/o associated subjective fever, fatigue. The patient is an everyday smoker. She has had similar symptoms previously related to exacerbation of her underlying asthma. Not currently using IV drugs. Labs notable as below: CBC: Unremarkable CMP: Unremarkable Troponin: negative Chest x-ray wet read: No focal consolidations Overall presentation is most consistent with bronchitis/asthma, COPD exacerbation in the setting of ongoing smoking. I see no focal pneumonia. Patient's history and concerns for possible endocarditis though overall presentation is not particularly suggestive thereof. Presents wheezing, cough, history of smoking, history of asthma all seems most consistent with pulmonary etiology. She is nontoxic in appearance. She was treated here with back-to- back DuoNeb with significant subjective improvement. She will be discharged with a five-day course of azithromycin and prednisone. I provided an albuterol MDI. Prior to discharge follow-up and return precautions were reviewed in detail with the patient who verbalized understanding and agreement with the plan. The patient was discharged in stable condition. Time of Eval: 23:23 Counseled Regarding: Diagnosis, Lab results, Need for follow-up, When/why to return to ED Discharge & Departure Primary Impression: Bronchitis Additional Impressions: Non-cardiac chest pain Tobacco abuse History of endocarditis History of asthma Disposition: Home Discharge Condition All VS Reviewed: Yes Condition: Stable Patient Instructions: Acute Bronchitis (ED), Chest Pain (ED) Additional Instructions: Thank you for seeking care at the emergency room. It is difficult for us to make definitive diagnoses in the ED but we believe that you are experiencing viral bronchitis. Our primary goal today in the ED was to evaluate you for any life-threatening conditions. Your evaluation was reassuring. Your labs including marker for heart damage, chest x-ray, and EKG were all normal. You will be discharged with a prescription for antibiotics, steroids, and albuterol inhaler. Take these as directed. You should follow-up with your primary doctor in the next week. You should return to the ED immediately if you develop fevers, vomiting, trouble breathing, worsening chest pain, lightheadedness, weakness or any other concerning signs or symptoms. Thank you for letting us partake in your care today. Referrals: [facility] (PCP) David Attestation Portions of this note were transcribed by Efraín Ortiz. I, Dr. Blancas personally performed the history, physical exam and medical decision-making; I reviewed and confirmed the accuracy of the information in the transcribed note. Signed by David Villagran, 06/29/16 - [id number] copies to: [facility] Dariel Blancas MD June 29, 2016 22:00 EFRAÍN ORTIZ June 29, 2016 22:51
[2016-06-29 22:16] LABS: TROPONIN T 0.01 ug/L (0.0-0.011)
[2016-06-29 22:28] LABS: Magnesium 1.8 mg/dL (1.6-2.6)
[2016-06-29] MEDS ORDERED: predniSONE 20 mg Tablet PO ONE (22:50)
[2016-06-29] MEDS ORDERED: Albuterol-Ipratropium 3 mL Inhalation Solution NEB ONE (22:50)
[2016-06-29] MEDS ORDERED: _Azithromycin 250 mg Tablet PO SCH (22:55)
[2016-06-29] MEDS ORDERED: Albuterol HFA 60 Puff 8 Gm Inhaler INHALATION PRN (22:55)
[2016-06-29] MEDS ORDERED: _Proair 200 Puff/8.5 GM Inhaler INHALATION PRN (23:00)
[2016-06-30 00:14] VITALS: BP 115/69; PULSE 83; O2SAT 97
[2016-06-30] MEDS ORDERED: _PredniSONE 10 mg Tablet PO SCH (08:00)
--- NOTE | 2016-06-30 09:05 | DRSVH ---
PROCEDURE: X-RAY CHEST, TWO VIEWS ([id number]) INDICATIONS: Chest pain. TECHNIQUE: 2 views of the chest were acquired. COMPARISON: [facility], CR, XR CHEST 2VW, 06/04/2016, 21:44. FINDINGS: Surgical changes and devices: Cholecystectomy clips. Lungs and pleura: No pleural effusions or pneumothorax. Lungs are clear. Mediastinum: Mediastinal contours are normal. Heart size is normal. Bones and chest wall: No suspicious bony abnormalities. Soft tissues appear unremarkable. IMPRESSION: No acute cardiopulmonary disease process. Dictated by: Alda Willis MD, PhD on 06/30/2016 at 9:03 Approved by: Alda Willis MD, PhD on 06/30/2016 at 9:03
== END 2016-06-30 00:15 | disposition home or self-care (01) ==
LOC: EDBD 21:14 → SED 21:14
DX: J40 Bronchitis, not specified as acute or chronic (principal); J45.909 Unspecified asthma, uncomplicated; F17.200 Nicotine dependence, unspecified, uncomplicated; Z86.79 Personal history of other diseases of the circulatory system; Z59.0 Homelessness; Z88.0 Allergy status to penicillin; Z88.5 Allergy status to narcotic agent; Z88.8 Allergy status to other drugs, medicaments and biological substances
CPT/HCPCS: 36415; 71020; 80053; 81025; 83735; 84484; 85025; 93005; 99285; J7620

== ENCOUNTER 2016-08-05 16:03 | Emergency (ER) | payer OTHER ==
[~2016-08-05] VITALS: Ht 170.2 cm; Wt 84.0 kg
[2016-08-05 16:14] VITALS: BP 127/79; PULSE 64; RESP 16; O2SAT 97
--- NOTE | 2016-08-05 18:22 | ED.REPORT ---
HPI-Rash / Abscess Date of Service Aug 05, 2016 ED Provider: Graham Bush DO A 40 year old female with a history of bipolar disorder, MRSA abscesses, endocarditis, methamphetamine abuse, and heroin abuse presents to the ED complaining of abscesses. These are located on her left arm and axillary area and are causing significant pain. The pt has had multiple I&D procedures and surgical interventions, but the abscesses recur when she is no longer taking antibiotics. Nursing Notes Stated Complaint: ABCESSES Chief Complaint: Skin Rash/Abscess Nursing Notes Reviewed: Yes Allergies: Coded Allergies: Penicillins (Verified Allergy, Severe, Anaphylaxis, 06/12/16) codeine (Verified Allergy, Severe, Rash, 06/12/16) 05/06/14 -PATIENT RECEIVED DILAUDID X MANY DOSES iodine (Verified Allergy, Unknown, 06/12/16) miconazole (Verified Allergy, Unknown, Hives, 06/12/16) trazodone (Verified Allergy, Unknown, 06/12/16) Scheduled Buprenorphine/Naloxone 8-2 mg (Buprenorphine/Naloxone 8-2 mg) 1 Each Tab.subl 2 TAB PO QAM Buprenorphine/Naloxone 8-2 mg (Buprenorphine/Naloxone 8-2 mg) 1 Each Tab.subl 3 TABLET SL DAILY Buspirone (Buspirone) 10 Mg Tablet 10 MG PO DAILY Doxycycline Hyclate (Doxycycline Hyclate) 100 Mg Tablet 100 MG PO BID Fluconazole (Fluconazole) 150 Mg Tablet 150 MG PO ONCE Fluticasone/Salmeterol (Advair 250-50 Diskus) 60 Puff/Inh Disk 1 PUFF IH BID [place] Carbonate ([place] Carbonate) 150 Mg Capsule 300 MG PO TID Mupirocin (Mupirocin Ointment) 22 Gm Oint...g. 1 APPLIC NASAL ONCE Mupirocin (Mupirocin Ointment) 22 Gm Oint...g. 1 APPLIC TOPICAL BID Nicotine (Nicoderm Cq 14 mg/24 hr) 1 Each Patch.td24 1 EACH TD DAILY Nicotine (Nicoderm Cq 7 mg/24 hr) 1 Each Patch.td24 1 EACH TD DAILY Nicotine 21 mg/24 hr Patch (Nicotine 21 mg/24 hr Patch) 1 Each Patch.td24 1 PATCH TOPICAL DAILY Paroxetine (Paroxetine) 10 Mg Tablet 10 MG PO QAM Prazosin (Prazosin) 1 Mg Capsule 1 MG PO HS Quetiapine Fumarate (Seroquel) 300 Mg Tablet 300 MG PO HS Scheduled PRN Albuterol HFA (Proair HFA) 8.5 Gm Hfa.aer.ad 2 PUFFS INHALATION BID PRN PRN For Shortness of Breath Clonazepam (Clonazepam) 2 Mg Tablet 2 MG PO BID PRN PRN For Anxiety Docusate Sodium (Colace) 100 Mg Capsule 100 MG PO BID PRN PRN For Constipation Polyethylene Glycol 3350 (Miralax) 17 Gm Powd.pack 17 GM PO BID PRN PRN For Constipation Sennosides (Senna) 8.6 Mg Tablet 17.2 MG PO BID PRN PRN For Constipation General Time Seen by MD: 18:21 Chief Complaint Abscess Hx Obtained From: Patient Arrived By: Walk-in Symptom Duration: Since onset Recent Healthcare: Recent doctor visit, Recent hospitalization Similar Sx Previous: Yes Past Medical History Past Medical History Notes: [facility] Recent start of suboxone 04/07/2016 Past Medical History Asthma Bipolar disorder. PTSD. History of MRSA abscesses. Nicotine dependence, active with smoking cigarettes. Morbid obesity. Sepsis Endocarditis Hydradenitis suppurativa Reports: Depression, Migraines Past Surgical History saliva gland removal Adenoidectomy 05/02: Excision of left axillary hidradenitis x2, left medial buttocks hidradenitis x1 and pilonidal cyst. Subsequent I&D on 05/18/2016. 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 Physical Exam Initial Vital Signs Vital Signs (First) Date Time Temp Pulse Resp B/P Pulse Ox O2 Delivery O2 Flow Rate FiO2 08/05/16 16:14 37.4 64 16 127/79 97 Room Air Initial VS: Reviewed General/Constitutional: Awake, Alert Distress / Hydration: Positive: Distress moderate Skin: Color NL, Warm, Dry left deltoid and left axillary abscesses Head / Eyes: Normocephalic, PERRL, EOMI ENT: Airway patent, Mucous membranes moist Respiratory / Chest: Breath sounds NL, Breath sounds = bilat, No respiratory distress Cardiovascular: Heart rate NL, Regular rhythm, Heart sounds NL Upper Extremity / MS: Full range of motion, Neurologic intact, Vascular intact Lower Extremity / Pelvis / MS: Atraumatic, Full range of motion Neurologic: Oriented X3, Speech NL, No motor deficits, No sensory deficits Neck: Supple, Full range of motion Abdomen: Soft, Non-tender Back: Atraumatic, Full range of motion Psychiatric: Affect NL, Mood NL Interpretation & Diagnostics Lab Results Interpretation Result Diagram: 08/05/16192908/05/161929 Test 08/05/16 19:30 White Blood Count 13.2th/mm3 (3.8-10.1) Red Blood Count 4.40mil/mm3 (3.90-5.20) Hemoglobin 12.8g/dL (12.0-15.6) Hematocrit 38.1% (35.0-46.0) Mean Corpuscular Volume 86.6fL (81-100) Mean Corpuscular Hemoglobin 29.1pg (27.0-35.0) Mean Corpuscular Hemoglobin Concent 33.6% (32.0-37.0) Red Cell Distribution Width 13.0% (12.3-15.4) Platelet Count 337bil/L (150-400) Neutrophils (%) (Auto) 68.0% (40-74) Lymphocytes (%) (Auto) 20.5% (14-46) Monocytes (%) (Auto) 9.7% (4-12) Eosinophils (%) (Auto) 1.4% (0-5) Basophils (%) (Auto) 0.2% (0-3) Sodium Level 134mEq/L (134-144) Potassium Level 3.5mEq/L (3.5-5.2) Chloride Level 97mEq/L (97-108) Carbon Dioxide Level 23mmol/L (18-29) Blood Urea Nitrogen 15mg/dL (6-24) Creatinine 0.52mg/dL (0.57-1.00) Estimat Glomerular Filtration Rate 187mL/min (>59) Glucose Level 104mg/dL (60-99) Lactic Acid Level 1.4mmol/L (0.4-2.0) Calcium Level 8.9mg/dL (8.5-10.1) Total Bilirubin 0.2mg/dL (0.0-1.2) Aspartate Amino Transf (AST/SGOT) 16U/L (0-50) Alanine Aminotransferase (ALT/SGPT) 16U/L (0-32) Alkaline Phosphatase 95U/L (25-150) Total Protein 7.5g/dL (6.4-8.4) Albumin 3.5g/dL (3.4-5.0) Pulse Oximetry Interpretation Pulse Oximetry Interpretation: 97% on room air Pulse Oximetry: Pulse Ox normal Procedures Incision & Drainage Abscess Time: 20:50 Procedure Performed by: ED physician Consent / Setup / Site Prep: Informed consent provided, Consent from patient , Time-out performed, Hand hygiene observed, Stand sterile technique, Standard surgical scrub, Sterile drapes applied Location of Abscess: left shoulder Skin Preparation Agent: Hibiclens - Chlorhexidine Local Anesthesia: Lidocaine w epi 1% Incised Abscess with Scalpel: #11 Pus Drained: Medium, Purulent discharge Irrigation: Yes Post-Procedure / Complications: Packing placed, Drain placed, Dressing applied, No complications, Condition improved, Tolerated procedure well, Patient stable Time: 22:17 Procedure Performed by: ED physician Consent / Setup / Site Prep: Informed consent provided, Consent from patient , Time-out performed, Hand hygiene observed, Stand sterile technique, Standard surgical scrub, Sterile drapes applied Location of Abscess: left axillary Skin Preparation Agent: Hibiclens - Chlorhexidine Local Anesthesia: Lidocaine w epi 1% Incised Abscess with Scalpel: #11 Pus Drained: Small, Purulent discharge Irrigation: Yes Post-Procedure / Complications: Packing placed, Dressing applied, No complications, Condition improved, Tolerated procedure well, Patient stable Re-Eval/Medical Decision Med Decision/Clinical Course I was able to successfully drain the 2 abscesses that needed draining. At discharge she was feeling much better. She is awake alert oriented 4. She is afforded moderate relief with the opiates. Packing was placed in the lateral shoulder wound. Where going to have follow-up tomorrow. Packing removal tomorrow. She has been provided a 10 day course of doxycycline and a 10 pack of Percocet for pain. She assures me that she is not abusing injection drugs this time. I warned her that combination of Percocet and any other illicit drugs could be life-threatening. She is very pleased with her care and disposition. She will follow up tomorrow. Routine opiate warnings given. Source of Hx: Old records Re-Evaluation/Progress #1: Time of Eval: 20:50 Patient Status: Condition improved Re-Evaluation/Progress Note: Pt rechecked and I&D is performed without complication. Re-Evaluation/Progress #2: Time of Eval: 22:17 Patient Status: Condition improved Re-Evaluation/Progress Note: Pt rechecked and additional I&D is performed without complication. Re-Evaluation/Progress #3: Time of Eval: 23:05 Patient Status: Condition improved Re-Evaluation/Progress Note: Pt rechecked, who is comfortable. The diagnosis and plan for discharge are discussed. The pt understands and agrees with the plan. All questions are addressed at this time. Counseled Regarding: Diagnosis, Lab results, Need for follow-up, When/why to return to ED Discharge & Departure Impression: Primary Impression: Abscess Additional Impression: Cellulitis Site of cellulitis: extremity Site of cellulitis of extremity: upper extremity Laterality: left Qualified Code: L03.114 - Cellulitis of left upper limb Disposition: Home Discharge Condition All VS Reviewed: Yes Condition: Stable Patient Instructions: Abscess (ED), Cellulitis (ED) Additional Instructions: Take Doxycycline twice daily for ten days. Take 1 to 2 [place] every 6 hours as needed for severe pain. Do not drink, drive, or consume acetaminophen while taking the [place]. Follow up either here tomorrow or with the surgeon tomorrow to have the packing removed. You need to be rechecked in one week. Call Dr. Ba to arrange follow up. Return to the emergency department sooner if you develop any new or worsening symptoms. Referrals: [facility] (PCP) Francisco Ba MD Attestation Portions of this note were transcribed by Natalie Wilks. I, Dr. Bush personally performed the history, physical exam and medical decision-making; I reviewed and confirmed the accuracy of the information in the transcribed note. Signed by: David Allen, 08/05/2016 and 2320. copies to: Francisco Ba MD; [facility] Graham Bush DO Aug 05, 2016 18:22 NATALIE WILKS Aug 05, 2016 19:21
[2016-08-05] MEDS ORDERED: HYDROmorphone 1 mg/mL Inj IVPUSH PRN (19:20)
[2016-08-05] MEDS ORDERED: cefTRIAXone Inj 2,000 MG in Dextrose 5% Minibag Plus 50 ML IV ONE (19:20)
[2016-08-05] MEDS ORDERED: Vancomycin Inj 1,750 MG in Dextrose 5% 500 ML IV ONE (19:20)
[2016-08-05 19:42] LABS: BASOPHILS % (AUTO) 0.2 % (0-3); EOSINOPHILS % (AUTO) 1.4 % (0-5); MONOCYTES % (AUTO) 9.7 % (4-12); Mean Corpuscular Hemoglobin 29.1 pg (27.0-35.0); Mean Corpuscular Volume 86.6 fL (81-100); Platelet Count 337 bil/L (150-400)
[2016-08-05] MEDS ORDERED: Lidocaine 1%-Epi 1:100,000 50 mL Inj NERVEBLOCK ONE (20:35)
[2016-08-05 20:55] VITALS: PULSE 89; RESP 16; O2SAT 97
[2016-08-05] MEDS ORDERED: HYDROmorphone 1 mg/mL Inj IVPUSH ONE (22:30)
[2016-08-05] MEDS ORDERED: _oxyCODONE/APAP 5-325 mg Tablet PO PRN (23:15)
[2016-08-05] MEDS ORDERED: _Doxycycline 100 mg Tablet PO SCH (23:15)
[2016-08-06 00:29] VITALS: BP 154/74; PULSE 88; RESP 16; O2SAT 100
[2016-08-06] MEDS ORDERED: HYDR-4003 PO (20:17)
[2016-08-06] MEDS ORDERED: FLUC150T3 PO (20:17)
== END 2016-08-06 00:30 | disposition home or self-care (01) ==
LOC: SED 16:03
DX: L03.114 Cellulitis of left upper limb (principal); L02.414 Cutaneous abscess of left upper limb; L02.412 Cutaneous abscess of left axilla; F43.10 Post-traumatic stress disorder, unspecified; F17.200 Nicotine dependence, unspecified, uncomplicated; Z86.19 Personal history of other infectious and parasitic diseases; Z86.14 Personal history of Methicillin resistant Staphylococcus aureus infection; Z79.899 Other long term (current) drug therapy; Z88.0 Allergy status to penicillin; Z88.5 Allergy status to narcotic agent; Z88.8 Allergy status to other drugs, medicaments and biological substances
CPT/HCPCS: 10061; 36415; 80053; 83605; 85025; 87040; 87077; 96365; 96366; 96368; 96375; 96376; 99285; J0696; J1170; J2250; J3370; J7060

== ENCOUNTER 2016-08-06 17:44 | Emergency (ER) | payer OTHER ==
[~2016-08-06] VITALS: Ht 170.2 cm; Wt 84.1 kg
[2016-08-06 18:03] VITALS: BP 114/79; PULSE 98; RESP 18; O2SAT 99
[2016-08-06] MEDS ORDERED: oxyCODONE-Acetamin 5-325 mg Tablet PO ONE (19:10)
--- NOTE | 2016-08-06 20:11 | ED.REPORT ---
HPI-Rash / Abscess Date of Service Aug 06, 2016 ED Provider: Darrell Mosley PA-C Jason is a 40-year-old female with a history of bipolar disorder, MRSA, endocarditis, methamphetamine abuse and heroin abuse presenting to the ED for reevaluation of an abscess drained in this department last night. Abscesses are located on her left shoulder and axilla. She reports a significant amount of drainage and a bad smell. Pain is been controlled with Percocet. Patient was directed to follow-up in surgery clinic but was unable to be seen. Admits vomiting, Denies fevers. Nursing Notes Stated Complaint: ABCESS Chief Complaint: Extremity Trauma Nursing Notes Reviewed: Yes Allergies: Coded Allergies: Penicillins (Verified Allergy, Severe, Anaphylaxis, 06/12/16) codeine (Verified Allergy, Severe, Rash, 06/12/16) 05/06/14 -PATIENT RECEIVED DILAUDID X MANY DOSES iodine (Verified Allergy, Unknown, 06/12/16) miconazole (Verified Allergy, Unknown, Hives, 06/12/16) trazodone (Verified Allergy, Unknown, 06/12/16) Scheduled Buprenorphine/Naloxone 8-2 mg (Buprenorphine/Naloxone 8-2 mg) 1 Each Tab.subl 2 TAB PO QAM Buprenorphine/Naloxone 8-2 mg (Buprenorphine/Naloxone 8-2 mg) 1 Each Tab.subl 3 TABLET SL DAILY Buspirone (Buspirone) 10 Mg Tablet 10 MG PO DAILY Doxycycline Hyclate (Doxycycline Hyclate) 100 Mg Tablet 100 MG PO BID Fluconazole (Fluconazole) 150 Mg Tablet 150 MG PO ONCE Fluconazole (Fluconazole) 150 Mg Tablet 150 MG PO ONCE Take 1 tab by mouth every 3 days for yeast infection symptoms Fluticasone/Salmeterol (Advair 250-50 Diskus) 60 Puff/Inh Disk 1 PUFF IH BID [place] Carbonate ([place] Carbonate) 150 Mg Capsule 300 MG PO TID Mupirocin (Mupirocin Ointment) 22 Gm Oint...g. 1 APPLIC NASAL ONCE Mupirocin (Mupirocin Ointment) 22 Gm Oint...g. 1 APPLIC TOPICAL BID Nicotine (Nicoderm Cq 14 mg/24 hr) 1 Each Patch.td24 1 EACH TD DAILY Nicotine (Nicoderm Cq 7 mg/24 hr) 1 Each Patch.td24 1 EACH TD DAILY Nicotine 21 mg/24 hr Patch (Nicotine 21 mg/24 hr Patch) 1 Each Patch.td24 1 PATCH TOPICAL DAILY Paroxetine (Paroxetine) 10 Mg Tablet 10 MG PO QAM Prazosin (Prazosin) 1 Mg Capsule 1 MG PO HS Quetiapine Fumarate (Seroquel) 300 Mg Tablet 300 MG PO HS Scheduled PRN Albuterol HFA (Proair HFA) 8.5 Gm Hfa.aer.ad 2 PUFFS INHALATION BID PRN PRN For Shortness of Breath Clonazepam (Clonazepam) 2 Mg Tablet 2 MG PO BID PRN PRN For Anxiety Docusate Sodium (Colace) 100 Mg Capsule 100 MG PO BID PRN PRN For Constipation Hydrocodone-Acetaminophen 5-325 mg (Hydrocodone-Acetaminophen 5-325 mg) 1 Each Tablet 1-2 TABLET PO QID PRN PRN For Pain Polyethylene Glycol 3350 (Miralax) 17 Gm Powd.pack 17 GM PO BID PRN PRN For Constipation Sennosides (Senna) 8.6 Mg Tablet 17.2 MG PO BID PRN PRN For Constipation General Time Seen by MD: 18:57 Chief Complaint Return visit, abscess Past Medical History Past Medical History Notes: [facility] Recent start of suboxone 04/07/2016 Past Medical History Asthma Bipolar disorder. PTSD. History of MRSA abscesses. Nicotine dependence, active with smoking cigarettes. Morbid obesity. Sepsis Endocarditis Hydradenitis suppurativa Reports: Depression, Migraines Past Surgical History saliva gland removal Adenoidectomy 05/02: Excision of left axillary hidradenitis x2, left medial buttocks hidradenitis x1 and pilonidal cyst. Subsequent I&D on 05/18/2016. 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 Ambulatory Status Independent Review of Systems Review of Systems Note: Negative unless stated otherwise in history of present illness Physical Exam General: Well appearing, well developed, well nourished, no acute distress. Right shoulder: Roughly 2 cm incision on the lateral aspect of the deltoid muscle, presents with dressing soaked in red serous fluid. Packing is removed, which produces a very small amount of purulence and red serous fluid. The wound gapes well with granulation tissue noted along the margins. There remains some surrounding induration and erythema with associated tenderness. Right axilla: Roughly 1 cm incision on the upper chest wall in the left axilla, presents with dressing soaked in clear serous fluid. This dressing is removed, there is no packing. Palpation produces a small amount of purulent discharge. The wound gapes minimally. Some surrounding induration and minimal erythema. Mild tenderness. Head: Atraumatic, normocephalic. Eyes: No scleral icterus or injection. No discharge. Vision grossly intact. ENT: Voice clear, hearing grossly intact. Respiratory: No respiratory distress, no increased work of breathing. Speaks in complete sentences. Skin: Warm and dry. Neurological: Grossly nonfocal. Psychological: alert and oriented. Speech appropriate, linear and logical. Behavior appropriate. Initial Vital Signs Vital Signs (First) Date Time Temp Pulse Resp B/P Pulse Ox O2 Delivery O2 Flow Rate FiO2 08/06/16 18:03 37.0 98 18 114/79 99 Room Air Normal Re-Eval/Medical Decision Med Decision/Clinical Course 40-year-old female with a history of MRSA abscesses, multi-substance abuse presents for reevaluation after having several abscesses drained in this department last night by Dr. Bush. Attempted follow-up with surgery clinic and was unable to be seen. Reports a significant amount of drainage that smell from the abscess on her left shoulder. This examination is benign, the wound appears to be healing well with some clear serous drainage from the abscess on the left deltoid. There remains some induration, erythema and tenderness. Minimal purulence. Wound gapes well and [place] tissue is visible on the borders. The abscess in the axilla also appears really well, draining clear serous fluid and a small amount of purulence. It is not packed but gapes minimally. Some surrounding erythema and induration and tenderness. I discussed the case with Dr. Bush who met with and examined the patient. She is very happy to see him and presenting with a letter of thanks which she asks be passed on to his garment manufacturing supervisor. He performed the procedures last night and states the patient looks significantly improved. We agree the wounds appear to be healing well. It is decided not to repack the deltoid abscess, simply redress. I redressed both wounds with antibiotic ointment and gauze. I also provided the patient with wound care materials as her financial situation would not allow her to purchase them on her own. Per Dr. Bush's instructions I provided a prescription for [place], Diflucan. Advised follow-up with Dr. Ba's office 2 days. Provided emergency return precautions. Patient verbalizes understanding of and consent to the plan Discharge & Departure Impression: Primary Impression: Encounter for recheck of abscess following incision and drainage Disposition: Home Discharge Condition All VS Reviewed: Yes Condition: Stable Additional Instructions: Reevaluation of the abscess on your left upper arm is quite encouraging this evening. It appears to be healing very well. We dressed it and Friday with a supply of wound care materials. You may find that you have to redress it fairly often as it continues to drain. Continue taking your antibiotics as directed. I will write a prescription for [place] 5/325 for pain. Do not drink alcohol, operate a vehicle or use other narcotic drugs drugs or Tylenol while taking this medication. Call [facility] first thing in the morning and try to be seen in the next 2 days. Be persistent. Return to the emergency Department for any new or worsening symptoms including fever, feeling ill, sweats, racing heart. Referrals: Francisco Ba MD EDSupervising Provider for APC: Graham Bush DO Attending Statement I took a history of performed a physical exam. I took care of Ms. Clayton yesterday. She is doing marvelous. The wound looks much better. The wound is gaping and will not repeat the packing. She will follow up the surgical clinic. copies to: Francisco Ba MD, Seth PA-C Aug 06, 2016 20:11 Graham Bush DO Aug 08, 2016 01:50
[2016-08-06] MEDS ORDERED: FLUC150T3 PO (20:17)
[2016-08-06] MEDS ORDERED: HYDR-4003 PO (20:17)
[2016-08-06 20:22] VITALS: BP 134/76; PULSE 72; RESP 16
== END 2016-08-06 20:23 | disposition home or self-care (01) ==
LOC: SED 17:44
DX: M71.012 Abscess of bursa, left shoulder (principal); L02.411 Cutaneous abscess of right axilla; F31.9 Bipolar disorder, unspecified; F11.10 Opioid abuse, uncomplicated; F15.10 Other stimulant abuse, uncomplicated; E66.01 Morbid (severe) obesity due to excess calories; F43.10 Post-traumatic stress disorder, unspecified; F17.200 Nicotine dependence, unspecified, uncomplicated; J45.909 Unspecified asthma, uncomplicated; Z68.29 Body mass index [BMI] 29.0-29.9, adult; Z86.14 Personal history of Methicillin resistant Staphylococcus aureus infection; Z59.0 Homelessness; Z79.51 Long term (current) use of inhaled steroids; Z88.0 Allergy status to penicillin; Z88.5 Allergy status to narcotic agent; Z88.8 Allergy status to other drugs, medicaments and biological substances

== ENCOUNTER 2016-08-23 16:47 | Emergency (ER) | payer OTHER ==
[~2016-08-23] VITALS: Ht 170.2 cm; Wt 73.6 kg
[~2016-08-23 16:47] MED LIST changes: +HYDR-4003 PO
[2016-08-23 18:13] VITALS: BP 130/87; PULSE 103; RESP 16; O2SAT 100
== END 2016-08-23 19:50 | disposition left against medical advice (07) ==
LOC: SED 16:47
DX: Z53.21 Procedure and treatment not carried out due to patient leaving prior to being seen by health care provider (principal)

== ENCOUNTER 2016-08-28 16:19 | Emergency (ER) | payer OTHER ==
[~2016-08-28] VITALS: Ht 170.2 cm; Wt 86.4 kg
[2016-08-28 16:23] VITALS: BP 139/98; PULSE 90; RESP 18; O2SAT 100
[2016-08-28] MEDS ORDERED: Lidocaine 1% 50 mL Inj NERVEBLOCK ONE (17:10)
--- NOTE | 2016-08-28 17:10 | ED.REPORT ---
HPI-General Illness Date of Service Aug 28, 2016 ED Provider: Josh Gastelum MD A 40 year old female with a history of MRSA abscesses, bipolar disorder, PTSD and polysubstance abuse is brought to the ED via EMS due to a possible medication reaction. The pt was seen by a doctor earlier and was complaining of drowsiness, leading to concerns that she may have overdosed on her medications. In the ED, the pt states that she took her regular lithium and is not abnormally drowsy. She has not yet taken her normal Seroquel. The pt denies suicidal ideation. The pt does complain of recurrent abscesses in her left axilla area. The pt has had these drained repeatedly but they recur when she is no longer taking antibiotics. She finished her last course of Bactrim three days ago, and now has abscesses in the same area that are draining. Nursing Notes Stated Complaint: MEDICATION REACTION Chief Complaint: General Complaint Nursing Notes Reviewed: Yes Allergies: Coded Allergies: Penicillins (Verified Allergy, Severe, Anaphylaxis, 06/12/16) codeine (Verified Allergy, Severe, Rash, 06/12/16) 05/06/14 -PATIENT RECEIVED DILAUDID X MANY DOSES iodine (Verified Allergy, Unknown, 06/12/16) miconazole (Verified Allergy, Unknown, Hives, 06/12/16) trazodone (Verified Allergy, Unknown, 06/12/16) Uncoded Allergies: OPOIDS (Allergy, Unknown, 08/28/16) Scheduled Buprenorphine/Naloxone 8-2 mg (Buprenorphine/Naloxone 8-2 mg) 1 Each Tab.subl 2 TAB PO QAM Buprenorphine/Naloxone 8-2 mg (Buprenorphine/Naloxone 8-2 mg) 1 Each Tab.subl 3 TABLET SL DAILY Buspirone (Buspirone) 10 Mg Tablet 10 MG PO DAILY Doxycycline Hyclate (Doxycycline Hyclate) 100 Mg Tablet 100 MG PO BID Fluconazole (Fluconazole) 150 Mg Tablet 150 MG PO ONCE Fluconazole (Fluconazole) 150 Mg Tablet 150 MG PO ONCE Take 1 tab by mouth every 3 days for yeast infection symptoms Fluticasone/Salmeterol (Advair 250-50 Diskus) 60 Puff/Inh Disk 1 PUFF IH BID [place] Carbonate ([place] Carbonate) 150 Mg Capsule 300 MG PO TID Mupirocin (Mupirocin Ointment) 22 Gm Oint...g. 1 APPLIC NASAL ONCE Mupirocin (Mupirocin Ointment) 22 Gm Oint...g. 1 APPLIC TOPICAL BID Nicotine (Nicoderm Cq 14 mg/24 hr) 1 Each Patch.td24 1 EACH TD DAILY Nicotine (Nicoderm Cq 7 mg/24 hr) 1 Each Patch.td24 1 EACH TD DAILY Nicotine 21 mg/24 hr Patch (Nicotine 21 mg/24 hr Patch) 1 Each Patch.td24 1 PATCH TOPICAL DAILY Paroxetine (Paroxetine) 10 Mg Tablet 10 MG PO QAM Prazosin (Prazosin) 1 Mg Capsule 1 MG PO HS Quetiapine Fumarate (Seroquel) 300 Mg Tablet 300 MG PO HS Scheduled PRN Albuterol HFA (Proair HFA) 8.5 Gm Hfa.aer.ad 2 PUFFS INHALATION BID PRN PRN For Shortness of Breath Clonazepam (Clonazepam) 2 Mg Tablet 2 MG PO BID PRN PRN For Anxiety Docusate Sodium (Colace) 100 Mg Capsule 100 MG PO BID PRN PRN For Constipation Hydrocodone-Acetaminophen 5-325 mg (Hydrocodone-Acetaminophen 5-325 mg) 1 Each Tablet 1-2 TABLET PO QID PRN PRN For Pain Polyethylene Glycol 3350 (Miralax) 17 Gm Powd.pack 17 GM PO BID PRN PRN For Constipation Sennosides (Senna) 8.6 Mg Tablet 17.2 MG PO BID PRN PRN For Constipation General Time Seen by MD: 16:51 Chief Complaint Other (Possible medication reaction) Hx Obtained From: Patient, EMS Arrived By: Ambulance Sudden in Onset?: No Symptom Duration: Since onset Recent Healthcare: Recent doctor visit, Recent hospitalization Similar Sx Previous: Yes Past Medical History Past Medical History Notes: [facility] Recent start of suboxone 04/07/2016 Past Medical History Asthma Bipolar disorder. PTSD. History of MRSA abscesses. Nicotine dependence, active with smoking cigarettes. Morbid obesity. Sepsis Endocarditis Hydradenitis suppurativa Reports: Depression, Migraines Past Surgical History saliva gland removal Adenoidectomy 05/02: Excision of left axillary hidradenitis x2, left medial buttocks hidradenitis x1 and pilonidal cyst. Subsequent I&D on 05/18/2016. 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 Physical Exam Vital Signs Vital Signs Date Time Temp Pulse Resp B/P Pulse Ox O2 Delivery O2 Flow Rate FiO2 08/28/16 18:05 36.6 90 18 139/98 100 Room Air 08/28/16 16:23 36.6 90 18 139/98 100 Room Air Initial VS: Reviewed General/Constitutional: Awake, Alert clear speech ambulatory with a steady gait Head / Eyes: Atraumatic, Normocephalic, PERRL, EOMI ENT: Atraumatic, Airway patent, Mucous membranes moist Neck: Atraumatic, Supple, Full range of motion Respiratory / Chest: Atraumatic, Breath sounds NL, Breath sounds = bilat, No respiratory distress Cardiovascular: Heart rate NL, Regular rhythm, Heart sounds NL Abdomen: Atraumatic, Soft, Non-tender Back: Atraumatic, Full range of motion Upper Extremities Upper Extremity / MS: Atraumatic, Full range of motion tender lump in left axilla Lower Extremity / Pelvis / MS: Atraumatic, Full range of motion Skin: Warm, Dry Neurologic: Oriented X3, Speech NL, No motor deficits, No sensory deficits Psychiatric: Affect NL, Mood NL, Not suicidal Procedures Incision & Drainage Abscess Time: 17:15 Procedure Performed by: Allied health pract Consent / Setup / Site Prep: Informed consent provided, Consent from parent , Time-out performed, Hand hygiene observed, Stand sterile technique, Standard surgical scrub, Sterile drapes applied Location of Abscess: left axilla Skin Preparation Agent: Betadine, Normal saline Local Anesthesia: Lidocaine 1% Incised Abscess with Scalpel: #11 Pus Drained: No purulence Irrigation: Yes Post-Procedure / Complications: Packing placed, Drain placed, Dressing applied, No complications, Condition improved, Tolerated procedure well, Patient stable Re-Eval/Medical Decision Med Decision/Clinical Course Minimally sedated otherwise looks well. Axillary abscess incised and drained. Source of Hx: Old records Time of Eval: 17:15 Re-Evaluation/Progress Note: Pt rechecked and I&D abscess is performed. Pt tolerated well and there were no complications. The diagnosis and plan for discharge are discussed. The pt understands and agrees with the plan. All questions are addressed at this time. Counseled Regarding: Diagnosis, Need for follow-up, When/why to return to ED Discharge & Departure Primary Impression: Abscess Disposition: Home Discharge Condition All VS Reviewed: Yes Condition: Stable Patient Instructions: Abscess (ED) Additional Instructions: The site has been opened in your axillae area. There was no discharge out but it was packed. Continue with warm soaks. Please make an appointment with surgery to discuss possible surgery for hidranitits supperative. Please stay clean! Referrals: [facility]ising Provider for APC: Josh Gastelum MD Attestation Portions of this note were transcribed by Natalie Wilks. I, Dr. Gastelum personally performed the history, physical exam and medical decision-making; I reviewed and confirmed the accuracy of the information in the transcribed note. Signed by: David Allen, 08/28/2016 and 1822. copies to: [facility] Josh Gastelum MD Aug 28, 2016 17:10 NATALIE WILKS Aug 28, 2016 17:20 Nohemi Noland Aug 28, 2016 17:53
[2016-08-28 18:05] VITALS: BP 139/98; PULSE 90; RESP 18; O2SAT 100
== END 2016-08-28 18:01 | disposition home or self-care (01) ==
LOC: EDUNIT# 16:19 → EDBD 16:19 → SED 16:19
DX: L02.412 Cutaneous abscess of left axilla (principal); F17.200 Nicotine dependence, unspecified, uncomplicated; Z90.710 Acquired absence of both cervix and uterus; Z88.0 Allergy status to penicillin; Z88.5 Allergy status to narcotic agent; Z88.3 Allergy status to other anti-infective agents

== ENCOUNTER 2016-09-06 17:31 | Emergency (ER) | payer OTHER ==
[~2016-09-06] VITALS: Ht 170.2 cm; Wt 85.0 kg
[2016-09-06 17:34] VITALS: BP 154/99; PULSE 104; RESP 16; O2SAT 100
--- NOTE | 2016-09-06 18:03 | ED.REPORT ---
HPI-General Illness Date of Service Sep 06, 2016 ED Provider: Andrez Al MD Patient is a 40 year old male with a history of MRSA, abscesses and bipolar disorder who presents to the ED due to a medication refill. The patient states that her last dose of Suboxone was yesterday and was unable to schedule an appointment at [facility] today. She last used heroin 3 weeks ago and admits to using meth. Since she is here, she complains of a small abscess in her axilla but states she does not want it drained. Nursing Notes Stated Complaint: SUBOXONE Chief Complaint: Substance Abuse Nursing Notes Reviewed: Yes Allergies: Coded Allergies: Penicillins (Verified Allergy, Severe, Anaphylaxis, 09/06/16) codeine (Verified Allergy, Severe, Rash, 09/06/16) 05/06/14 -PATIENT RECEIVED DILAUDID X MANY DOSES iodine (Verified Allergy, Unknown, 09/06/16) miconazole (Verified Allergy, Unknown, Hives, 09/06/16) trazodone (Verified Allergy, Unknown, 09/06/16) Uncoded Allergies: OPOIDS (Allergy, Unknown, 08/28/16) Scheduled Buprenorphine SL (Buprenorphine SL) 8 Mg Tab.subl 20 MG SL DAILY Buprenorphine/Naloxone 8-2 mg (Buprenorphine/Naloxone 8-2 mg) 1 Each Tab.subl 2 TAB PO QAM Buprenorphine/Naloxone 8-2 mg (Buprenorphine/Naloxone 8-2 mg) 1 Each Tab.subl 3 TABLET SL DAILY Buspirone (Buspirone) 10 Mg Tablet 10 MG PO DAILY Doxycycline Hyclate (Doxycycline Hyclate) 100 Mg Tablet 100 MG PO BID Fluconazole (Fluconazole) 150 Mg Tablet 150 MG PO ONCE Fluconazole (Fluconazole) 150 Mg Tablet 150 MG PO ONCE Take 1 tab by mouth every 3 days for yeast infection symptoms Fluticasone/Salmeterol (Advair 250-50 Diskus) 60 Puff/Inh Disk 1 PUFF IH BID [place] Carbonate ([place] Carbonate) 150 Mg Capsule 300 MG PO TID Mupirocin (Mupirocin Ointment) 22 Gm Oint...g. 1 APPLIC NASAL ONCE Mupirocin (Mupirocin Ointment) 22 Gm Oint...g. 1 APPLIC TOPICAL BID Nicotine (Nicoderm Cq 14 mg/24 hr) 1 Each Patch.td24 1 EACH TD DAILY Nicotine (Nicoderm Cq 7 mg/24 hr) 1 Each Patch.td24 1 EACH TD DAILY Nicotine 21 mg/24 hr Patch (Nicotine 21 mg/24 hr Patch) 1 Each Patch.td24 1 PATCH TOPICAL DAILY Paroxetine (Paroxetine) 10 Mg Tablet 10 MG PO QAM Prazosin (Prazosin) 1 Mg Capsule 1 MG PO HS Quetiapine Fumarate (Seroquel) 300 Mg Tablet 300 MG PO HS Scheduled PRN Albuterol HFA (Proair HFA) 8.5 Gm Hfa.aer.ad 2 PUFFS INHALATION BID PRN PRN For Shortness of Breath Clonazepam (Clonazepam) 2 Mg Tablet 2 MG PO BID PRN PRN For Anxiety Docusate Sodium (Colace) 100 Mg Capsule 100 MG PO BID PRN PRN For Constipation Hydrocodone-Acetaminophen 5-325 mg (Hydrocodone-Acetaminophen 5-325 mg) 1 Each Tablet 1-2 TABLET PO QID PRN PRN For Pain Polyethylene Glycol 3350 (Miralax) 17 Gm Powd.pack 17 GM PO BID PRN PRN For Constipation Sennosides (Senna) 8.6 Mg Tablet 17.2 MG PO BID PRN PRN For Constipation General Time Seen by MD: 18:02 Chief Complaint Medication refill Hx Obtained From: Patient Arrived By: Walk-in Sudden in Onset?: Yes Onset Occurred: Yesterday Severity: Current: No pain currently Recent Healthcare: No recent hospitalization, Recent doctor visit Similar Sx Previous: Yes Past Medical History Past Medical History Notes: [facility] Recent start of suboxone 04/07/2016 Past Medical History Asthma Bipolar disorder. PTSD. History of MRSA abscesses. Nicotine dependence, active with smoking cigarettes. Morbid obesity. Sepsis Endocarditis Hydradenitis suppurativa Reports: Depression, Migraines Past Surgical History saliva gland removal Adenoidectomy 05/02: Excision of left axillary hidradenitis x2, left medial buttocks hidradenitis x1 and pilonidal cyst. Subsequent I&D on 05/18/2016. 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 Ambulatory Status Independent Review of Systems Full Review of Systems Constitutional: Denies: Chills, Fever Respiratory: Denies: Non-productive cough, Shortness of breath GI: Denies: Vomiting Skin: Reports Rash (abscess), Denies Itching Complete sys rev & neg: except as marked. Physical Exam Vital Signs Vital Signs Date Time Temp Pulse Resp B/P Pulse Ox O2 Delivery O2 Flow Rate FiO2 09/06/16 17:34 36.8 104 16 154/99 100 Room Air Initial VS: Reviewed General/Constitutional: Awake, Alert, No acute distress Head / Eyes: Atraumatic, Normocephalic, PERRL, EOMI Respiratory / Chest: Atraumatic, No respiratory distress Upper Extremities Upper Extremity / MS: Atraumatic, Full range of motion small 1.5cm left axillary abscess Skin: Atraumatic, Color NL, No rash, Warm, Dry Neurologic: Oriented X3, Speech NL, No motor deficits, No sensory deficits Psychiatric: Affect NL, Mood NL Re-Eval/Medical Decision Time of Eval: 18:17 Re-Evaluation/Progress Note: Discussed plan for treatment, follow up at [facility] on Friday and discharge. Patient understands and agrees to the plan. All questions were addressed. Counseled Regarding: Diagnosis, Need for follow-up, When/why to return to ED Discharge & Departure Primary Impression: Opioid use disorder, severe, in early remission Disposition: Home Discharge Condition All VS Reviewed: Yes Condition: Stable Patient Instructions: Opioid Dependence (ED) Additional Instructions: Take buprenorphine 20 mg daily as prescribed. Follow up Friday or Friday at [facility]. Referrals: [facility] Scribe Attestation Portions of this note were transcribed by Melonie Hoover. I, Dr. Al personally performed the history, physical exam and medical decision-making; I reviewed and confirmed the accuracy of the information in the transcribed note. Signed by: David Luis, 09/06/16 Andrez Al MD Sep 06, 2016 18:03 Jennie Hoover Sep 06, 2016 18:11
[2016-09-06] MEDS ORDERED: BUPR8TAB2 SL (18:14)
== END 2016-09-06 18:24 | disposition home or self-care (01) ==
LOC: SED 17:31
DX: F11.10 Opioid abuse, uncomplicated (principal); F43.10 Post-traumatic stress disorder, unspecified; F17.200 Nicotine dependence, unspecified, uncomplicated; Z88.0 Allergy status to penicillin; Z88.5 Allergy status to narcotic agent; Z88.3 Allergy status to other anti-infective agents

== ENCOUNTER 2016-09-11 20:46 | Emergency (ER) | payer OTHER ==
[~2016-09-11 20:46] MED LIST changes: +BUPR8TAB2 SL
== END 2016-09-11 21:10 | disposition left against medical advice (07) ==
LOC: SED 20:46
DX: L72.9 Follicular cyst of the skin and subcutaneous tissue, unspecified (principal); Z53.21 Procedure and treatment not carried out due to patient leaving prior to being seen by health care provider

== ENCOUNTER 2016-09-19 06:15 | Emergency (ER) | payer OTHER ==
[~2016-09-19] VITALS: Ht 170.2 cm; Wt 79.1 kg
[2016-09-19 06:19] VITALS: BP 143/103; PULSE 105; RESP 18; O2SAT 99
--- NOTE | 2016-09-19 06:58 | ED.REPORT ---
HPI-General Illness Date of Service Sep 19, 2016 ED Provider: Sheyla Chen MD The pt is a 40 y/o female w/ a hx of opioid and methamphetamine use presenting to the ED for a medication refill. She ran out of Subutex and is requesting more.The pt is also seen at [facility] and is scheduled to be seen there 4 days from now on September 23. She was seen there 30 days ago on 08/29, was given 6 days worth of Subutex, and then reports getting a weeks worth from Dr. Moore on the after that. The pt reports usually staying sober until she runs out of Subutex, and then reports using methamphetamine w/ the last time being yesterday. She last used heroin in May. She is living in an apartment w/ her kids and goes to [place] and AA meetings for counseling. Nursing Notes Stated Complaint: SUBOXONE REFILL Chief Complaint: Medication refill Nursing Notes Reviewed: Yes Allergies: Coded Allergies: Penicillins (Verified Allergy, Severe, Anaphylaxis, 09/19/16) codeine (Verified Allergy, Severe, Rash, 09/19/16) 05/06/14 -PATIENT RECEIVED DILAUDID X MANY DOSES iodine (Verified Allergy, Unknown, 09/19/16) miconazole (Verified Allergy, Unknown, Hives, 09/19/16) trazodone (Verified Allergy, Unknown, 09/19/16) Scheduled Buprenorphine SL (Buprenorphine SL) 8 Mg Tab.subl 20 MG SL DAILY Buprenorphine SL (Buprenorphine SL) 8 Mg Tab.subl 20 MG SL DAILY Buprenorphine/Naloxone 8-2 mg (Buprenorphine/Naloxone 8-2 mg) 1 Each Tab.subl 2 TAB PO QAM Buprenorphine/Naloxone 8-2 mg (Buprenorphine/Naloxone 8-2 mg) 1 Each Tab.subl 3 TABLET SL DAILY Buspirone (Buspirone) 10 Mg Tablet 10 MG PO DAILY Doxycycline Hyclate (Doxycycline Hyclate) 100 Mg Tablet 100 MG PO BID Fluconazole (Fluconazole) 150 Mg Tablet 150 MG PO ONCE Fluconazole (Fluconazole) 150 Mg Tablet 150 MG PO ONCE Take 1 tab by mouth every 3 days for yeast infection symptoms Fluticasone/Salmeterol (Advair 250-50 Diskus) 60 Puff/Inh Disk 1 PUFF IH BID [place] Carbonate ([place] Carbonate) 150 Mg Capsule 300 MG PO TID Mupirocin (Mupirocin Ointment) 22 Gm Oint...g. 1 APPLIC NASAL ONCE Mupirocin (Mupirocin Ointment) 22 Gm Oint...g. 1 APPLIC TOPICAL BID Nicotine (Nicoderm Cq 14 mg/24 hr) 1 Each Patch.td24 1 EACH TD DAILY Nicotine (Nicoderm Cq 7 mg/24 hr) 1 Each Patch.td24 1 EACH TD DAILY Nicotine 21 mg/24 hr Patch (Nicotine 21 mg/24 hr Patch) 1 Each Patch.td24 1 PATCH TOPICAL DAILY Paroxetine (Paroxetine) 10 Mg Tablet 10 MG PO QAM Prazosin (Prazosin) 1 Mg Capsule 1 MG PO HS Quetiapine Fumarate (Seroquel) 300 Mg Tablet 300 MG PO HS Scheduled PRN Albuterol HFA (Proair HFA) 8.5 Gm Hfa.aer.ad 2 PUFFS INHALATION BID PRN PRN For Shortness of Breath Clonazepam (Clonazepam) 2 Mg Tablet 2 MG PO BID PRN PRN For Anxiety Docusate Sodium (Colace) 100 Mg Capsule 100 MG PO BID PRN PRN For Constipation Hydrocodone-Acetaminophen 5-325 mg (Hydrocodone-Acetaminophen 5-325 mg) 1 Each Tablet 1-2 TABLET PO QID PRN PRN For Pain Polyethylene Glycol 3350 (Miralax) 17 Gm Powd.pack 17 GM PO BID PRN PRN For Constipation Sennosides (Senna) 8.6 Mg Tablet 17.2 MG PO BID PRN PRN For Constipation General Time Seen by MD: 06:28 Chief Complaint Medication refill (Subutex) Hx Obtained From: Patient Arrived By: Walk-in Sudden in Onset?: Yes Recent Healthcare: No recent hospitalization, Recent doctor visit Similar Sx Previous: Yes Past Medical History Past Medical History Notes: [facility] clinic Recent start of suboxone 04/07/2016 Past Medical History Asthma Bipolar disorder. PTSD. History of MRSA abscesses. Nicotine dependence, active with smoking cigarettes. Morbid obesity. Sepsis Endocarditis Hydradenitis suppurativa Reports: Depression, Migraines Past Surgical History saliva gland removal Adenoidectomy 05/02: Excision of left axillary hidradenitis x2, left medial buttocks hidradenitis x1 and pilonidal cyst. Subsequent I&D on 05/18/2016. Reports: Cholecystectomy, Hysterectomy, Tonsillectomy Smoking History Current Every Day Smoker Social History Pt is living in an apartment w/ her kids On Suboxone (06/11/16) Alcohol Use: Denies alcohol use Drug Use: In recovery, IV drugs (Heroin ), Meth Other Social History: Poor social support, Local resident Ambulatory Status Independent Review of Systems Full Review of Systems Constitutional: Denies: Chills, Fever Complete sys rev & neg: except as marked. Physical Exam Vital Signs Vital Signs Date Time Temp Pulse Resp B/P Pulse Ox O2 Delivery O2 Flow Rate FiO2 09/19/16 06:19 36.5 105 18 143/103 99 Room Air Initial VS: Reviewed General/Constitutional: Awake, Alert Head / Eyes: Normocephalic, PERRL, EOMI Pupils are not dilated ENT: Atraumatic, Airway patent, Mucous membranes moist Neck: Atraumatic, Supple, Full range of motion Respiratory / Chest: Atraumatic, Breath sounds NL, Breath sounds = bilat Cardiovascular: Heart rate NL, Regular rhythm, Heart sounds NL Upper Extremities Upper Extremity / MS: Atraumatic, Full range of motion, No deformity Lower Extremity / Pelvis / MS: Atraumatic, Full range of motion, No deformity Skin: Color NL, No rash, Warm, Dry, Intact Small abscess on L axilla w/ no signs of infection Neurologic: Oriented X3, Speech NL Psychiatric: Affect NL, Mood NL Alert and appropriate Good eye contact Calm and reasonable Interpretation & Diagnostics Lab Results Interpretation Test 09/19/16 07:00 Hold Urine Received (Received) Re-Eval/Medical Decision Med Decision/Clinical Course Patient seen at [facility]. Has appointment 814, she did call 3 days ago and that was the earliest appointment. She has had multiple complicating issues with her recovery including recurrent surgeries and recurrent infections with her hidradinitis supurvita. She currently is going to counseling. Has multiple very close social contacts with [facility] so is unable to go there for social reasons. She is going to NA and AA meetings. She is trying very hard to maintain her sobriety and willingly provides a urine drug screen today. She said her last use of amphetamine was 3 days ago and this does show on her urine tox. Today's tox also shows ecstasy. Of note there is no opiate Suboxone typically does not show on our urine drug screens in the emergency department At this time we will refill her Suboxone to last through until Friday. At 20 mg or 2-1/2 Subutex tabs daily this will be 8 tablets. We will make sure [facility] records reflect this emergency room visit. Long discussion today about the very inappropriate use of the emergency room to help with her Suboxone. Very frustrating situation for her with complex medical issues, in and out of the hospital, and difficulty in following up for her appointments at [facility] Source of Hx: Old records Time of Eval: 07:06 Re-Evaluation/Progress Note: Pt rechecked. Informed pt of plan for treatment. Pt understands and agrees with plan for treatment. F/U instructions and RTER warnings given. All questions addressed. Counseled Regarding: Diagnosis, Lab results, Need for follow-up, When/why to return to ED Discharge & Departure Primary Impression: Opiate addiction Substance use status: uncomplicated Qualified Code: F11.20 - Opioid dependence, uncomplicated Additional Impressions: Methamphetamine addiction Hidradenitis suppurativa Disposition: Home Discharge Condition All VS Reviewed: Yes Condition: Stable Additional Instructions: Jason, I am very glad you are trying to maintain her sobriety and do want to help. You cannot continue to come to the emergency room for bridging Suboxone. Please keep your appointment on Saturday 09/23. I would also encourage you to make an appointment for 09/24 At this time I will continue your Subutex tablets 2-1/2 (20mg) with enough to get through Friday. This is a total of 13 tabs You also need to stop doing the methamphetamine Make sure you get to some meetings this weekend and [facility] next week! Referrals: [facility] Scribe Attestation Portions of this note were transcribed by Jin Jett. I, Dr. Chen personally performed the history, physical exam and medical decision-making; I reviewed and confirmed the accuracy of the information in the transcribed note. copies to: [facility] Sheyla Chen MD Sep 19, 2016 06:57 Jin Jett Sep 19, 2016 07:01 Sheyla Chen MD Sep 19, 2016 06:57 Jin Jett Sep 19, 2016 07:01
[2016-09-19] MEDS ORDERED: BUPR8TAB2 SL (07:00)
== END 2016-09-19 07:08 | disposition home or self-care (01) ==
LOC: SED 06:15
DX: F11.20 Opioid dependence, uncomplicated (principal); F15.20 Other stimulant dependence, uncomplicated; L73.2 Hidradenitis suppurativa; J45.909 Unspecified asthma, uncomplicated; F43.10 Post-traumatic stress disorder, unspecified; F32.9 Major depressive disorder, single episode, unspecified; F17.200 Nicotine dependence, unspecified, uncomplicated; Z88.0 Allergy status to penicillin; Z88.5 Allergy status to narcotic agent; Z88.8 Allergy status to other drugs, medicaments and biological substances; Z86.14 Personal history of Methicillin resistant Staphylococcus aureus infection

== ENCOUNTER 2016-09-29 07:35 | Emergency (ER) | payer OTHER ==
[~2016-09-29] VITALS: Ht 170.2 cm; Wt 75.9 kg
--- NOTE | 2016-09-29 07:43 | ED.REPORT ---
HPI-General Illness Date of Service Sep 29, 2016 ED Provider: Rudolph Miller MD The pt is a 40 y/o female w/a hx of asthma, bipolar disorder, PTSD, substance abuse, depression, and nicotine dependence presenting to the ED complaining of a migraine. She describes the migraines being localized to the occipital region, throbbing, standing increasing the pain, and nothing helping to relieve it. She is also experiencing a fever, and episodes of SOB, diaphoresis, chest pain, dizziness, nausea, and auditory changes where everything sounds like its underwater. These episodes began roughly a week ago. She also has an abscess to her L hand from a spider bite 4 days ago. Denies cough, or numbness or weakness in extremities. The pt reports last using Suboxone and recreational drugs three days ago. She has not taken her Bactrim antibiotics in 3-4 weeks. Nursing Notes Stated Complaint: INFECTION/MIGRAINE Chief Complaint: Migraine Nursing Notes Reviewed: Yes ([employer], meds not reconciled) Allergies: Coded Allergies: Penicillins (Verified Allergy, Severe, Anaphylaxis, 09/19/16) codeine (Verified Allergy, Severe, Rash, 09/19/16) 05/06/14 -PATIENT RECEIVED DILAUDID X MANY DOSES iodine (Verified Allergy, Unknown, 09/19/16) miconazole (Verified Allergy, Unknown, Hives, 09/19/16) trazodone (Verified Allergy, Unknown, 09/19/16) Scheduled Buprenorphine SL (Buprenorphine SL) 8 Mg Tab.subl 20 MG SL DAILY Buprenorphine SL (Buprenorphine SL) 8 Mg Tab.subl 20 MG SL DAILY Buprenorphine/Naloxone 8-2 mg (Buprenorphine/Naloxone 8-2 mg) 1 Each Tab.subl 2 TAB PO QAM Buprenorphine/Naloxone 8-2 mg (Buprenorphine/Naloxone 8-2 mg) 1 Each Tab.subl 3 TABLET SL DAILY Buspirone (Buspirone) 10 Mg Tablet 10 MG PO DAILY Clindamycin (Clindamycin) 300 Mg Capsule 300 MG PO QID Doxycycline Hyclate (Doxycycline Hyclate) 100 Mg Tablet 100 MG PO BID Fluconazole (Fluconazole) 150 Mg Tablet 150 MG PO ONCE Fluconazole (Fluconazole) 150 Mg Tablet 150 MG PO ONCE Take 1 tab by mouth every 3 days for yeast infection symptoms Fluconazole (Diflucan) 150 Mg Tablet 150 MG PO ONCE Fluticasone/Salmeterol (Advair 250-50 Diskus) 60 Puff/Inh Disk 1 PUFF IH BID Ennis Carbonate (Ennis Carbonate) 150 Mg Capsule 300 MG PO TID Mupirocin (Mupirocin Ointment) 22 Gm Oint...g. 1 APPLIC NASAL ONCE Mupirocin (Mupirocin Ointment) 22 Gm Oint...g. 1 APPLIC TOPICAL BID Nicotine (Nicoderm Cq 14 mg/24 hr) 1 Each Patch.td24 1 EACH TD DAILY Nicotine (Nicoderm Cq 7 mg/24 hr) 1 Each Patch.td24 1 EACH TD DAILY Nicotine 21 mg/24 hr Patch (Nicotine 21 mg/24 hr Patch) 1 Each Patch.td24 1 PATCH TOPICAL DAILY Paroxetine (Paroxetine) 10 Mg Tablet 10 MG PO QAM Prazosin (Prazosin) 1 Mg Capsule 1 MG PO HS Quetiapine Fumarate (Seroquel) 300 Mg Tablet 300 MG PO HS Scheduled PRN Albuterol HFA (Proair HFA) 8.5 Gm Hfa.aer.ad 2 PUFFS INHALATION BID PRN PRN For Shortness of Breath Clonazepam (Clonazepam) 2 Mg Tablet 2 MG PO BID PRN PRN For Anxiety Docusate Sodium (Colace) 100 Mg Capsule 100 MG PO BID PRN PRN For Constipation Hydrocodone-Acetaminophen 5-325 mg (Hydrocodone-Acetaminophen 5-325 mg) 1 Each Tablet 1-2 TABLET PO QID PRN PRN For Pain Polyethylene Glycol 3350 (Miralax) 17 Gm Powd.pack 17 GM PO BID PRN PRN For Constipation Sennosides (Senna) 8.6 Mg Tablet 17.2 MG PO BID PRN PRN For Constipation General Time Seen by MD: 07:40 Chief Complaint Other (Migraine ) Hx Obtained From: Patient Arrived By: Walk-in Sudden in Onset?: Yes Symptom Duration: Since onset Recent Healthcare: Recent doctor visit, Recent hospitalization Similar Sx Previous: Yes Past Medical History Past Medical History Notes: Patient on Suboxone through [place] [facility], seen in ED 09/19/16 for suboxone refill Past Medical History Asthma Bipolar disorder (on Ennis per EMR) PTSD. History of MRSA abscesses. h/o substance abuse on suboxone Nicotine dependence, active with smoking cigarettes. Morbid obesity. Sepsis h/o Endocarditis Hydradenitis suppurativa Reports: Depression, Migraines Past Surgical History saliva gland removal Adenoidectomy 05/02: Excision of left axillary hidradenitis x2, left medial buttocks hidradenitis x1 and pilonidal cyst. Subsequent I&D on 05/18/2016. Reports: Cholecystectomy, Hysterectomy, Tonsillectomy Smoking History Current Every Day Smoker Social History Pt is living in an apartment w/ her kids On Suboxone (09/11/16) Alcohol Use: Denies alcohol use Drug Use: In recovery, IV drugs, Meth, Other (heroin) Other Social History: Poor social support, Local resident Ambulatory Status Independent Review of Systems Migraine; Episodes where it sounds like she is "underwater"; L hand abscess; Full Review of Systems Constitutional: Reports: Fever Respiratory: Reports: Shortness of breath, Denies: Non-productive cough Cardiovascular: Reports: Chest pain GI: Reports: Nausea Skin: Reports Diaphoresis Neurologic: Reports: Dizziness, Denies: Numbness, Weakness Complete sys rev & neg: except as marked. Physical Exam Vital Signs Vital Signs Date Time Temp Pulse Resp B/P Pulse Ox O2 Delivery O2 Flow Rate FiO2 09/29/16 12:36 93 16 150/98 98 Room Air 09/29/16 10:58 115 18 167/118 100 Room Air 09/29/16 07:54 37.0 98 20 150/90 100 Room Air Initial VS: Reviewed General/Constitutional: Awake, Alert Behavior: Positive: Tearful Disorganized Pt is possibly intoxicated on meth w/ wandering thoughts making it difficult to obtain a reliable HPI No clinical meningismus Head / Eyes: Normocephalic Pupils are dilated ENT: Airway patent, Mucous membranes moist Neck: Atraumatic, Supple, Full range of motion Respiratory / Chest: Atraumatic, Breath sounds NL, Breath sounds = bilat Cardiovascular: Heart rate NL, Regular rhythm, Heart sounds NL Abdomen: Atraumatic, Soft, Non-tender Skin: Warm, Dry LUE draining abscess at level of MCP of L hand Several areas of erythema to L arm which appear to be mosquito bites and nothing that needs I&D No abscess or infection to axilla region Neurologic: No motor deficits No focal deficits Abnormal Mood/Affect: Positive: Anxious Limited insight Poor judgement Interpretation & Diagnostics PROCEDURE: X-RAY LEFT HAND, MINIMUM THREE VIEWS ([id number]) IMPRESSION: Marked soft tissue swelling without underlying bony abnormality to suggest osteomyelitis or retained foreign body. Please note, plain film is less sensitive for the early stages of acute osteomyelitis. If there is high clinical suspicion for osteomyelitis, contrast-enhanced MRI of the hand is recommended. Dictated by: Valeria Zapien M.D. on 09/29/2016 at 10:10 Approved by: Valeria Zapien M.D. on 09/29/2016 at 10:10 Lab Results Interpretation Result Diagram: 09/29/16 0925 09/29/16 0925 Test 09/29/16 09:25 09/29/16 09:40 White Blood Count 13.1th/mm3 (3.8-10.1) Red Blood Count 5.01mil/mm3 (3.90-5.20) Hemoglobin 14.6g/dL (12.0-15.6) Hematocrit 42.8% (35.0-46.0) Mean Corpuscular Volume 85.4fL (81-100) Mean Corpuscular Hemoglobin 29.1pg (27.0-35.0) Mean Corpuscular Hemoglobin Concent 34.1% (32.0-37.0) Red Cell Distribution Width 13.8% (12.3-15.4) Platelet Count 298bil/L (150-400) Neutrophils (%) (Auto) 71.6% (40-74) Lymphocytes (%) (Auto) 17.1% (14-46) Monocytes (%) (Auto) 8.4% (4-12) Eosinophils (%) (Auto) 2.3% (0-5) Basophils (%) (Auto) 0.4% (0-3) Prothrombin Time 9.7sec (8.1-12.5) Prothromb Time International Ratio 0.91ratio Activated Partial Thromboplast Time 34.5sec (22.8-33.0) Sodium Level 138mEq/L (134-144) Potassium Level 4.2mEq/L (3.5-5.2) Chloride Level 101mEq/L (97-108) Carbon Dioxide Level 21mmol/L (18-29) Blood Urea Nitrogen 14mg/dL (6-24) Creatinine 0.60mg/dL (0.57-1.00) Estimat Glomerular Filtration Rate 159mL/min (>59) Glucose Level 89mg/dL (60-99) Lactic Acid Level 0.7mmol/L (0.4-2.0) Calcium Level 9.2mg/dL (8.5-10.1) Total Bilirubin 0.4mg/dL (0.0-1.2) Aspartate Amino Transf (AST/SGOT) 15U/L (0-50) Alanine Aminotransferase (ALT/SGPT) 16U/L (0-32) Alkaline Phosphatase 101U/L (25-150) Total Protein 8.3g/dL (6.4-8.4) Albumin 4.0g/dL (3.4-5.0) Human Chorionic Gonadotropin, Qual Negative (Negative) Ennis Level < 0.1mEq/L (0.5-1.5) Urine Color Yellow (YELLOW) Urine Appearance Hazy (CLEAR,HAZY) Urine pH 7.0 (5.0-8.0) Urine Specific [place] 1.023 (1.003-1.035) Urine Protein Negativemg/dL (NEG,TRACE) Urine Glucose (UA) Negativemg/dL (NEGATIVE) Urine Ketones Negativemg/dL (NEGATIVE) Urine Occult Blood Negative (NEGATIVE) Urine Nitrite Negative (NEGATIVE) Urine Bilirubin Negative (NEGATIVE) Urine Urobilinogen Normalmg/dL (NORMAL) Urine Leukocyte Esterase Negative (NEGATIVE) Urine RBC 0-2/hpf (0-2) Urine WBC 0-5/hpf (0-5) Urine Epithelial Cells Many/hpf (NONE-MOD) Urine Crystals Amorphous phosphates Urine Bacteria Few/hpf (NONE-FEW) Urine Hyaline Casts None/lpf (NONE) Urine Granular Casts None seen (NONE SEEN) Urine Waxy Casts None seen (NONE SEEN) Urine Red Blood Cell Casts None seen (NONE SEEN) Urine White Blood Cell Casts None seen (NONE SEEN) Urine Mucus None seen (None Seen) Urine Trichomonas None seen (NONE SEEN) Urine Yeast None (NONE SEEN) Urinalysis Comment None Urine Culture Reflexed Not indicated Lab Results Interpretation: CBC positive leukocytosis and CMP normal Gram stain pending X-Ray Interpretation Xray Interpretation: IMPRESSION: Marked soft tissue swelling without underlying bony abnormality to suggest osteomyelitis or retained foreign body. Please note, plain film is less sensitive for the early stages of acute osteomyelitis. If there is high clinical suspicion for osteomyelitis, contrast-enhanced MRI of the hand is recommended. Dictated by: Valeria Zapien M.D. on 09/29/2016 at 10:10 Approved by: Valeria Zapien M.D. on 09/29/2016 at 10:10 Interpretation / Wet Read by: Interpret - Radiologist CT Head Interpretation IMPRESSION: No acute intracranial findings. Dictated by: Valeria Zapien M.D. on 09/29/2016 at 9:37 Approved by: Valeria Zapien M.D. on 09/29/2016 at 9:38 Study: Head CT no contrast Interpretation / Wet Read by: Interpret - Radiologist Procedures Incision & Drainage Abscess Time: 10:37 Procedure Performed by: ED physician Consent / Setup / Site Prep: Informed consent provided, Consent from patient , Time-out performed, Hand hygiene observed, Stand sterile technique, Sterile drapes applied Location of Abscess: L hand Skin Preparation Agent: Betadine Local Anesthesia: Bupivacaine 0.5% (w/ epi ) Procedural Sedation/Analgesia: Sedation: Ketamine Incised Abscess with Scalpel: #11 Pus Drained: Large Irrigation: Yes, Copious Post-Procedure / Complications: Dressing applied, No complications, Condition improved, Tolerated procedure well, Patient stable Proced Mod Sedation/Analgesia Time: 10:36 Procedure Performed by: ED physician Sedation Time: 10 - 15 min Consent / Setup: Informed consent provided, Consent from patient, Time-out performed, Hand hygiene observed, Stand sterile technique, Position supine Indication: Other (Abscess I&D) Preparation: central office equipment engineer applied, Pulse oximeter applied, Constant attendance, Eval last meal time, Procedure explained, Suction available, End tidal CO2 mon applied VS Prior to Procedure: All vital signs normal Mallampati: Class & Anatomy: 2 top tonsil/uvula/palate Airway Exam: Normal facial anatomy CVS/Resp Exam: Normal breath sounds, Normal heart sounds Neuro Exam: Alert Sedation: Sedation: Ketamine Response During Procedure: Handled secretions adeq, Maintained airway well, Oxygenation stable, Sedation appropriate, Vital signs stable Complications During/After: None Reversal: None required Mental Status After Procedure: Alert, At patient's baseline Post-Procedure: Alert prior to discharge Attestation: I performed procedure, I performed sedation Re-Eval/Medical Decision Med Decision/Clinical Course This is a 40-year-old female presents with a multitude of complaints. The patient's initially disorganized and suspect component of recent substance abuse , and touching was indeed positive for amphetamines. She presented complaining of migraine headache, but also talks about an abscess as large cutaneous abscess on the left hand at the level of the MCP for this come to ahead. There is no ascending lymphangitis, the patient is not febrile. She does not have clinical meningismus. Patient had a head CT. My suspicion for meningismus is extremely low, the patient's headache actually resolved in the department. I think this is further argument this is not meningitis and she does not require an LP. She does have a previous history of endocarditis, it did not fully complete her antibiotics but apparently had 50+ days. Several months ago. I do not appreciate overt murmur this time. She does have early cutaneous abscess the left hand, and after procedural sedation this was drained with a large amount of purulent material. He started back up on antibiotic to clindamycin. On reevaluation post drainage patient feels much better. She is being discharged continue clindamycin, but I recommended close follow-up for repeat wound check given the location of her wound and her complex history. Patient's discharge and much improved condition. Source of Hx: Old records Time of Eval: 10:38 Re-Evaluation/Progress Note: Performed incision and drainage of L hand abscess Time of Eval: 12:20 Re-Evaluation/Progress Note: Pt rechecked. Informed pt of plan for treatment. Pt understands and agrees with plan for treatment. F/U instructions and RTER warnings given. All questions addressed. Differential Diagnosis: Positive: Abscess, Negative: Abdominal pain, Acute coronary syndrome, Allergies, G-tube repair/ replacement, Neutropenia, Otitis media, Pharyngitis, acute, Pneumonia, Seizure disorder, Splint/cast care Counseled Regarding: Diagnosis, Lab results, Need for follow-up, When/why to return to ED Discharge & Departure Primary Impression: Abscess of left hand Additional Impression: Substance abuse Disposition: Home Discharge Condition All VS Reviewed: Yes Condition: Stable Additional Instructions: 1. You had an abscess of the left hand drained today. 2. Take the antibiotic clindamycin 300mg four times a day for the next 7 days 3. You do need to be seen and rechecked this week by your doctor. Call on Friday to schedule an appointment. 4. Stay away from methamphetamines and other street drugs. 5. Return if new or worsening symptoms occur. Referrals: Monae Lloyd DO (PCP) Scribe Attestation Portions of this note were transcribed by Jin Jett. I, Dr. Miller personally performed the history, physical exam and medical decision-making; I reviewed and confirmed the accuracy of the information in the transcribed note. copies to: Monae Lloyd Matthew F MD Sep 29, 2016 07:43 Jin Jett Sep 29, 2016 10:28
[2016-09-29 07:54] VITALS: BP 150/90; PULSE 98; RESP 20; O2SAT 100
--- NOTE | 2016-09-29 09:40 | DRSVH ---
PROCEDURE: CT BRAIN WITHOUT CONTRAST ([id number]) INDICATIONS: RIOS TECHNIQUE: Noncontrast 4.5 mm thick angled axial sections acquired from the foramen magnum to the vertex, with c oronal reformats. COMPARISON: [facility], CT, CT BRAIN WO CON, 06/05/2016, 0:45. FINDINGS: Image quality: Excellent. CSF spaces: Basal cisterns are patent. No extra-axial fluid collections. Ventricles are normal in size and shape. Brain: No midline shift. No intracranial masses or hemorrhage. Soliman-white matter interface is norm al. Skull and face: Calvarium and visualized facial bones are intact, without suspicious lesions. Sinuses: Visualized sinuses and mastoids are clear. IMPRESSION: No acute intracranial findings. Dictated by: Valeria Zapien M.D. on 09/29/2016 at 9:37 Approved by: Valeria Zapien M.D. on 09/29/2016 at 9:38
[2016-09-29 09:42] LABS: BASOPHILS % (AUTO) 0.4 % (0-3); EOSINOPHILS % (AUTO) 2.3 % (0-5); MONOCYTES % (AUTO) 8.4 % (4-12); Mean Corpuscular Hemoglobin 29.1 pg (27.0-35.0); Mean Corpuscular Volume 85.4 fL (81-100); NEUTROPHILS % (AUTO) 71.6 % (40-74); Platelet Count 298 bil/L (150-400)
[2016-09-29] MEDS ORDERED: Ondansetron 8 mg ODT Tablet PO ONE (09:50)
[2016-09-29] MEDS ORDERED: Ketamine 100 mg/mL 5 mL Inj IM ONE (09:50)
[2016-09-29] MEDS ORDERED: Ketamine 100 mg/mL 5 mL Inj IV ONE (10:05)
--- NOTE | 2016-09-29 10:12 | DRSVH ---
PROCEDURE: X-RAY LEFT HAND, MINIMUM THREE VIEWS ([id number]) INDICATIONS: L hand pain TECHNIQUE: 3 views of the hand(s) acquired. COMPARISON: None. FINDINGS: Bones: No fractures or dislocations. Carpal bones are normally aligned. No suspicious bony lesions . Soft tissues: No suspicious soft tissue calcifications. There is marked soft tissue swelling overly ing the second MCP joint. IMPRESSION: Marked soft tissue swelling without underlying bony abnormality to suggest osteomyelitis or retained foreign body. Please note, plain film is less sensitive for the early stages of acute ost eomyelitis. If there is high clinical suspicion for osteomyelitis, contrast-enhanced MRI of the hand is recommended. Dictated by: Valeria Zapien M.D. on 09/29/2016 at 10:10 Approved by: Valeria Zapien M.D. on 09/29/2016 at 10:10
[2016-09-29 10:21] LABS: APPEARANCE,URINE HAZY (CLEAR,HAZY); COLOR,URINE YELLOW (YELLOW); OCCULT BLOOD,URINE NEGATIVE (NEGATIVE); UROBILINOGEN,URINE NORMAL (NORMAL)
[2016-09-29 10:47] LABS: INR 0.91 ratio
[2016-09-29] MEDS ORDERED: CLIN-78 PO (10:52)
[2016-09-29 10:58] VITALS: BP 167/118; PULSE 115; RESP 18; O2SAT 100
[2016-09-29] MEDS ORDERED: Clindamycin Inj 900 MG in IV Premix 1 EACH IV ONE (11:05)
[2016-09-29] MEDS ORDERED: FLUC150T48 PO (12:25)
[2016-09-29 12:36] VITALS: BP 150/98; PULSE 93; RESP 16; O2SAT 98
== END 2016-09-29 12:37 | disposition home or self-care (01) ==
LOC: SED 07:35
DX: L02.512 Cutaneous abscess of left hand (principal); F15.10 Other stimulant abuse, uncomplicated; G43.909 Migraine, unspecified, not intractable, without status migrainosus; J45.909 Unspecified asthma, uncomplicated; F17.200 Nicotine dependence, unspecified, uncomplicated; F11.20 Opioid dependence, uncomplicated; Z90.710 Acquired absence of both cervix and uterus; Z90.49 Acquired absence of other specified parts of digestive tract; Z86.14 Personal history of Methicillin resistant Staphylococcus aureus infection; Z79.51 Long term (current) use of inhaled steroids; Z88.0 Allergy status to penicillin; Z88.5 Allergy status to narcotic agent; Z88.8 Allergy status to other drugs, medicaments and biological substances
CPT/HCPCS: 10061; 36415; 70450; 73130; 80053; 80178; 81000; 83605; 84703; 85025; 85610; 85730; 87040; 87070; 87075; 87186; 87205; 94799; 96365; 96375; 96376; 99152; 99285; J1885; J3490

== ENCOUNTER 2016-10-28 09:45 | Emergency (ER) | payer OTHER ==
[~2016-10-28] VITALS: Ht 170.2 cm; Wt 83.6 kg
[~2016-10-28 09:45] MED LIST changes: +CLIN-78 PO; +FLUC150T48 PO
[2016-10-28 09:52] VITALS: BP 128/85; PULSE 77; RESP 14; O2SAT 100
[2016-10-28] MEDS ORDERED: _Naloxone 2 mg/2 mL 2 Syringe Kit (NASAL USE) NASAL PRN (10:35)
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
[2016-10-28] MEDS ORDERED: Naloxone 0.4 mg/mL 10 mL Inj IM STA (10:54)
[2016-10-28 12:02] VITALS: BP 152/98; PULSE 87; RESP 16; O2SAT 95
== END 2016-10-28 12:02 | disposition home or self-care (01) ==
LOC: EDBD 09:45 → SED 10:48
DX: T40.1X1A Poisoning by heroin, accidental (unintentional), initial encounter (principal); X58.XXXA Exposure to other specified factors, initial encounter; Y93.9 Activity, unspecified; Y92.9 Unspecified place or not applicable; Y99.9 Unspecified external cause status; F43.10 Post-traumatic stress disorder, unspecified; F17.200 Nicotine dependence, unspecified, uncomplicated; Z90.710 Acquired absence of both cervix and uterus; Z86.14 Personal history of Methicillin resistant Staphylococcus aureus infection; Z88.0 Allergy status to penicillin; Z88.1 Allergy status to other antibiotic agents; Z88.5 Allergy status to narcotic agent
CPT/HCPCS: 96372; 99283; J2310

== ENCOUNTER 2016-10-30 19:07 | Emergency (ER) | payer OTHER ==
[~2016-10-30] VITALS: Ht 170.2 cm; Wt 80.5 kg
[2016-10-30 19:13] VITALS: BP 156/107; PULSE 108; RESP 16; O2SAT 100
--- NOTE | 2016-10-30 19:46 | ED.REPORT ---
HPI-General Illness Date of Service Oct 30, 2016 ED Provider: Sheyla Chen MD The pt is a 40 y/o female with hx of heroin abuse who presents to the ED complaining of abscess to the left angle of the jaw onset 2 days ago. She believes that she itched a flea bite that has now become infected. The pt presents to the ED sober and denies any heroin use this evening. The patient was seen in the ED on 10/28 for a narcotic overdose and was discharged in stable condition with referral to [facility] Sub[facility]one program. Skin rash initially seen 2 days ago and has become gradually worse since onset. The patient was seen today at [facility] today to re-establish care. She denies any recent fever or chills. Nursing Notes Stated Complaint: MRSA Chief Complaint: Skin Rash/Abscess Nursing Notes Reviewed: Yes Allergies: Coded Allergies: Penicillins (Verified Allergy, Severe, Anaphylaxis, 10/30/16) codeine (Verified Allergy, Severe, Rash, 10/30/16) 05/06/14 -PATIENT RECEIVED DILAUDID X MANY DOSES iodine (Verified Allergy, Unknown, 10/30/16) miconazole (Verified Allergy, Unknown, Hives, 10/30/16) trazodone (Verified Allergy, Unknown, 10/30/16) Scheduled Buprenorphine SL (Buprenorphine SL) 8 Mg Tab.subl 20 MG SL DAILY Buprenorphine SL (Buprenorphine SL) 8 Mg Tab.subl 20 MG SL DAILY Buprenorphine/Naloxone 8-2 mg (Buprenorphine/Naloxone 8-2 mg) 1 Each Tab.subl 2 TAB PO QAM Buprenorphine/Naloxone 8-2 mg (Buprenorphine/Naloxone 8-2 mg) 1 Each Tab.subl 3 TABLET SL DAILY Buspirone (Buspirone) 10 Mg Tablet 10 MG PO DAILY Clindamycin (Clindamycin) 300 Mg Capsule 300 MG PO QID Doxycycline Hyclate (Doxycycline Hyclate) 100 Mg Tablet 100 MG PO BID Fluconazole (Fluconazole) 150 Mg Tablet 150 MG PO ONCE Fluconazole (Fluconazole) 150 Mg Tablet 150 MG PO ONCE Take 1 tab by mouth every 3 days for yeast infection symptoms Fluconazole (Diflucan) 150 Mg Tablet 150 MG PO ONCE Fluticasone/Salmeterol (Advair 250-50 Diskus) 60 Puff/Inh Disk 1 PUFF IH BID Aneth Carbonate (Aneth Carbonate) 150 Mg Capsule 300 MG PO TID Mupirocin (Mupirocin Ointment) 22 Gm Oint...g. 1 APPLIC NASAL ONCE Mupirocin (Mupirocin Ointment) 22 Gm Oint...g. 1 APPLIC TOPICAL BID Nicotine (Nicoderm Cq 14 mg/24 hr) 1 Each Patch.td24 1 EACH TD DAILY Nicotine (Nicoderm Cq 7 mg/24 hr) 1 Each Patch.td24 1 EACH TD DAILY Nicotine 21 mg/24 hr Patch (Nicotine 21 mg/24 hr Patch) 1 Each Patch.td24 1 PATCH TOPICAL DAILY Paroxetine (Paroxetine) 10 Mg Tablet 10 MG PO QAM Prazosin (Prazosin) 1 Mg Capsule 1 MG PO HS Quetiapine Fumarate (Seroquel) 300 Mg Tablet 300 MG PO HS Sulfamethoxazole/Trimeth 400-80 mg (Bactrim) 1 Each Tablet 2 TABLET PO BID Scheduled PRN Albuterol HFA (Proair HFA) 8.5 Gm Hfa.aer.ad 2 PUFFS INHALATION BID PRN PRN For Shortness of Breath Clonazepam (Clonazepam) 2 Mg Tablet 2 MG PO BID PRN PRN For Anxiety Docusate Sodium (Colace) 100 Mg Capsule 100 MG PO BID PRN PRN For Constipation Hydrocodone-Acetaminophen 5-325 mg (Hydrocodone-Acetaminophen 5-325 mg) 1 Each Tablet 1-2 TABLET PO QID PRN PRN For Pain Polyethylene Glycol 3350 (Miralax) 17 Gm Powd.pack 17 GM PO BID PRN PRN For Constipation Sennosides (Senna) 8.6 Mg Tablet 17.2 MG PO BID PRN PRN For Constipation General Time Seen by MD: 19:48 Chief Complaint Other (abscess) Hx Obtained From: Patient Arrived By: Walk-in Sudden in Onset?: No Onset Occurred: 2 days ago Symptom Duration: Since onset Location: : Face (left jaw) Quality: Painful Radiation: : Does not radiate Severity: Current: Mild Severity: Maximum: Mild Pertinent Negative: Pt denies other symptoms Recent Healthcare: No recent hospitalization, Recent doctor visit Similar Sx Previous: Yes Past Medical History Past Medical History Notes: Patient was on Sub[facility]one through [facility], seen in ED 09/19/16 for suboxone refill Past Medical History Bipolar disorder (on Aneth per EMR) PTSD. History of MRSA abscesses. h/o substance abuse on suboxone Nicotine dependence, active with smoking cigarettes. Morbid obesity. Sepsis h/o Endocarditis Hydradenitis suppurativa Reports: Asthma Reports: Depression, Migraines Past Surgical History Saliva gland removal Adenoidectomy 05/02: Excision of left axillary hidradenitis x2, left medial buttocks hidradenitis x1 and pilonidal cyst. Subsequent I&D on 05/18/2016. Reports: Cholecystectomy, Hysterectomy, Tonsillectomy Smoking History Current Every Day Smoker Social History Pt is living in an apartment w/ her kids Alcohol Use: Denies alcohol use Drug Use: In recovery, IV drugs, Meth, Other Other Social History: Poor social support, Local resident Ambulatory Status Independent Review of Systems Full Review of Systems Constitutional: Denies: Chills, Fever Skin: Reports Rash (abscess) Complete sys rev & neg: except as marked. Physical Exam Vital Signs Vital Signs Date Time Temp Pulse Resp B/P Pulse Ox O2 Delivery O2 Flow Rate FiO2 10/30/16 19:13 37.0 108 16 156/107 100 Room Air Initial VS: Reviewed General/Constitutional: Well-developed, Well-nourished Head / Eyes: Atraumatic, Normocephalic, PERRL Extremities: Vascular intact, Neuro intact Neurologic: Alert, Oriented, Nonfocal Psychiatric: Mood/affect normal, Behavior normal, Normal thought content Neck: Atraumatic, Supple, No adenopathy Respiratory / Chest: Atraumatic, Breath sounds NL, Breath sounds = bilat, No respiratory distress Cardiovascular: Heart rate NL, Regular rhythm, Heart sounds NL Abdomen: Atraumatic, Soft, Non-tender Skin: Atraumatic, Warm, Dry Abscess Notes: 1x1 cm abscess at left angle of the jaw No cellulitis Procedures Incision & Drainage Abscess Time: 19:54 Procedure Performed by: ED physician Consent / Setup / Site Prep: Consent from patient, Time-out performed, Hand hygiene observed, Stand sterile technique, Standard surgical scrub, Sterile drapes applied Location of Abscess: 1x1 cm abscess at left angle of the jaw Skin Preparation Agent: Normal saline Local Anesthesia: Lidocaine w epi 1% Incised Abscess with Scalpel: #11 Pus Drained: Small, Purulent discharge Post-Procedure / Complications: Dressing applied, No complications, Condition improved, Tolerated procedure well, Patient stable Re-Eval/Medical Decision Source of Hx: Old records Time of Eval: 19:54 Patient Status: Condition improved Re-Evaluation/Progress Note: Performed I&D procedure and the pt tolerated without complication. Abscess scab removed to drain puss. Informed pt of abscess and plan for discharge. The pt understands and agrees to take antibiotics for her abscess and also agrees with plan for discharge. F/U instructions and RTER warnings given. All questions addressed at this time. Counseled Regarding: Diagnosis, Lab results, Need for follow-up, When/why to return to ED Discharge & Departure Primary Impression: Abscess Disposition: Home Discharge Condition All VS Reviewed: Yes Condition: Stable Patient Instructions: Abscess (ED) Additional Instructions: I am so glad you went back to [facility] today. The antibiotic prescription that you will get from them is for Keflex. I would prefer that you use Bactrim (2 in the am and 2 in the pm) and I have given you a prescription for this. This change is based on information from previous cultures here in the hospital We were able to drain a small amount of pus from the lesion on your cheek. Please encourage it to keep draining. There is no cellulitis or signs of other systemic infection at this time. I look forward to seeing you next week in clinic. Referrals: Monae Lloyd DO (PCP) [facility] Attestation Portions of this note were transcribed by Allison Munoz and Koko Rodriguez. I, Dr. Sheyla Chen personally performed the history, physical exam and medical decision-making; I reviewed and confirmed the accuracy of the information in the transcribed note. Signed by: Allison Munoz and David Crane, 10/30/16. copies to: Monae Lloyd Shawna L MD Oct 30, 2016 19:46 Allison Munoz Oct 30, 2016 19:54 KOKO RODRIGUEZ Oct 30, 2016 20:46
[2016-10-30] MEDS ORDERED: SULF-239 PO (20:10)
== END 2016-10-30 20:32 | disposition home or self-care (01) ==
LOC: SED 19:07
DX: M27.2 Inflammatory conditions of jaws (principal); J45.909 Unspecified asthma, uncomplicated; G43.909 Migraine, unspecified, not intractable, without status migrainosus; F31.9 Bipolar disorder, unspecified; F17.200 Nicotine dependence, unspecified, uncomplicated; F19.10 Other psychoactive substance abuse, uncomplicated; Z86.14 Personal history of Methicillin resistant Staphylococcus aureus infection; Z90.49 Acquired absence of other specified parts of digestive tract; Z90.89 Acquired absence of other organs; Z90.710 Acquired absence of both cervix and uterus; Z98.890 Other specified postprocedural states; Z88.0 Allergy status to penicillin; Z88.5 Allergy status to narcotic agent; Z88.8 Allergy status to other drugs, medicaments and biological substances